=== PATIENT | female | born 1935 | race Caucasian/White ===

== ENCOUNTER → 2017-09-13 | Outpatient (REF) | payer MEDICARE, SELFPAY | LOC: LAB 23:19 | DX: N30.00 Acute cystitis without hematuria (principal) | CPT/HCPCS: 87077; 87086; 87186 ==

== ENCOUNTER → 2018-03-31 16:19 | Outpatient (CLI) | payer MEDICARE, SELFPAY | PROVIDERS: Visit Provider Physician Assistant | DX: N39.0 Urinary tract infection, site not specified (principal) | CPT/HCPCS: 87086 ==

== ENCOUNTER → 2021-04-09 15:26 | Outpatient (CLI) | payer MEDICARE, SELFPAY | PROVIDERS: Visit Provider Physician Assistant | DX: N34.3 Urethral syndrome, unspecified (principal) | CPT/HCPCS: 87077; 87086; 87186 ==

== ENCOUNTER → 2021-08-02 16:02 | Outpatient (CLI) | payer MEDICARE, SELFPAY | PROVIDERS: Visit Provider Nurse Practitioner Family | DX: N39.0 Urinary tract infection, site not specified (principal); L29.9 Pruritus, unspecified | CPT/HCPCS: 87077; 87086; 87186; 87210 ==

== ENCOUNTER → 2021-08-10 15:43 | Outpatient (CLI) | payer MEDICARE, SELFPAY | PROVIDERS: Visit Provider Student in an Organized Health Care Education/Training Program | DX: R30.0 Dysuria (principal) | CPT/HCPCS: 87077; 87086; 87186 ==

== ENCOUNTER → 2022-07-13 15:08 | Outpatient (CLI) | payer MEDICARE, SELFPAY | PROVIDERS: Visit Provider Nurse Practitioner Family | DX: R30.0 Dysuria (principal) | CPT/HCPCS: 87077; 87086; 87186; 87210 ==

== ENCOUNTER 2022-10-05 12:37 | Emergency (ER) | payer MEDICARE, SELFPAY ==
[2022-10-05] VITALS (16 sets, daily range): BP systolic 134–165; BP diastolic 59–70; PULSE 62–79; RESP 18–41; TEMP 37; O2SAT 90–99; BMI 23.8
--- NOTE | 2022-10-05 12:47 | DI.RAD.S_ITS ---
PROCEDURE: XR CHEST 1V INDICATIONS: chest pain TECHNIQUE: One view of the chest was acquired. COMPARISON: None. FINDINGS: Surgical changes and devices: None. Lungs and pleura: Minimal opacity in the left mid lung. No pleural effusions or pneumothorax. Mediastinum: Mediastinal contours appear normal. Heart size is prominent. Bones and chest wall: No suspicious bony lesions. Question left-sided rib fractures. Overlying soft tissues appear unremarkable. IMPRESSION: Question left sided rib fractures. Acuity is uncertain. Adjacent opacity in the left mid lung. Favor atelectasis over contusion. Dictated by: Christopher John M.D. on 10/05/2022 at 13:57 Approved by: Christopher John M.D. on 10/05/2022 at 13:59
[2022-10-05 13:10] LABS: Add Manual Diff / Slide Review NO; Basophils Absolute Auto 0 /uL (0-100); Basophils Percent Auto 0.5 % (0-2); Eosinophils Absolute Auto 100 /uL (0-450); Eosinophils Percent Auto 0.8 % (2-4); Hematocrit 28.4 % (36-46); Hemoglobin 9.9 g/dL (12.0-16.0); Lymphocytes Absolute Auto 900 /uL (1100-4500); Lymphocytes Percent Auto 12.8 % (25-40); Mean Corpuscular HGB Conc 34.8 % (30-36); Mean Corpuscular Hemoglobin 35.5 PG (26-34); Mean Corpuscular Volume 102.1 fL (80-100); Monocytes Absolute Auto 500 /uL (0-900); Monocytes Percent Auto 6.7 % (3-14); Neutrophils Absolute Auto 5800 /uL (1500-7000); Neutrophils Percent Auto 79.2 % (50-75); Platelet Count 308 X10^3/uL (150-400); Red Blood Cell Count 2.78 X10^6/uL (4.0-5.2); Red Cell Distribution Width 15.1 % (11.6-14.8); White Blood Cell Count 7.4 X10^3/uL (4.5-11.0)
[2022-10-05 13:18] LABS: Prothrombin Time 11.6 SECONDS (10.1-12.7)
[2022-10-05 13:20] LABS: PTT Partial Thromboplastin Tim 28 SECONDS (26-36)
[2022-10-05 13:54] LABS: Bacteria Urine Few (2-10); RBC Urine 0-1/HPF (0-5/HPF); Squamous Epithelial Cell Urine 1-5 /HPF (0-5/HPF); Transitional Epi Cells Urine 0-1/HPF (0-5/HPF); WBC Urine 0-1/HPF (0-5/HPF)
[2022-10-05 13:55] LABS: Culture Indicated Urine Cult Not Indicated
[2022-10-05] MEDS: ONDANSETRON 4 MG/2 ML INJ IV ×2 (14:21→18:16)
[2022-10-05] MEDS: MORPHINE 2 MG/ML INJ IV (14:36)
--- NOTE | 2022-10-05 14:47 | DI.CT.S_ITS ---
PROCEDURE: CT ABDOMEN PELVIS W CON INDICATIONS: IV contrast only/abdominal pain TECHNIQUE: After the administration of intravenous contrast, axial sections acquired from the lung bases to the pubic symphysis. Coronal and sagittal reformats were performed. For radiation dose reduction, the following was used: automated exposure control, adjustment of mA and/or kV according to patient size. COMPARISON: None. FINDINGS: Image quality: Study limited by motion artifact Lower thorax: The lung bases are clear. Heart size normal. No hiatal hernia. Old healed left-sided rib fractures Liver: Normal in size and attenuation. No contour deformity present. Biliary system: No calcified cholelithiasis or pericholecystic inflammation. No intra or extrahepatic bile duct dilatation. Pancreas: Unremarkable without mass or inflammation evident. Spleen: Normal in size and density. Adrenals: Normal morphology and density. Reproductive system: Hysterectomy. Urinary system: Normal renal size and attenuation. No renal calculi, hydronephrosis, or solid mass present. Urinary bladder unremarkable. Gastrointestinal system: Large amount of fecal debris throughout the colon. Appendix: No findings to suggest acute appendicitis. Peritoneal spaces: No mesenteric or retroperitoneal adenopathy. No free air. No free fluid. Vasculature: Aortic atherosclerotic vascular calcification noted without evidence of aneurysm. Abdominal wall: Abdominal wall intact without evidence of ventral or inguinal hernias. Abdominal wall suture noted Musculoskeletal: Normal bone mineralization. Degenerative disc disease and arthropathy noted in lower lumbar spine. No acute fractures. Left-sided malunion pelvic fractures IMPRESSION: 1. No acute CT findings in the abdomen and pelvis. 2. Large amount of fecal debris throughout the colon. No evidence of obstruction. 3. Old left-sided pelvic fractures with malunion. Advanced degenerative disc disease and arthropathy in the lower lumbar spine with thoracolumbar levoscoliosis Approved by: Mohan Orozco M.D. on 10/05/2022 at 16:44
--- NOTE | 2022-10-05 14:48 | ED_ITS ---
HPI - Abdominal Pain General Chief Complaint: Abdominal Pain Stated Complaint: UPPER STOMACH AND CHEST PAIN/POST UTI/VAG BLEED Time Seen by Provider: 10/05/22 14:41 Source: patient and family Mode of arrival: Ambulatory History of Present Illness HPI narrative: Patient here with daughter. Complaints abdominal pain epigastric pain radiating to the mid back as well as up to the chest. Has had nausea but no vomiting. Patient recent treat for UTI by walk-in clinic in [place]. Patient has dementia. Denies any pain at this time. Patient has history hysterectomy. Uncertain about gallbladder and appendix. Patient in no distress. Patient has had complaints of abdominal bloating/fullness Related Data Home Medications Medication Instructions Recorded Confirmed fluoxetine 20 mg capsule 20 mg PO QDAY ##0 01/26/17 10/10/22 gabapentin 300 mg capsule 300 mg PO BID ##0 01/26/17 10/10/22 (Neurontin) insulin aspar prot-insulin aspart See Rx Instructions .Route 01/26/17 10/10/22 100 unit/mL (70-30) subcutaneous .COMPLEX ##0 pen (Novolog Mix 70-30FlexPen U-100) metformin 1,000 mg tablet,extended 1,000 mg PO BID ##0 01/26/17 10/09/22 release 24hr spironolactone 25 mg tablet 25 mg QDAY ##0 01/26/17 10/10/22 insulin degludec 100 unit/mL (3 22 unit SUBCUT DAILY 08/02/21 10/10/22 mL) subcutaneous pen (Tresiba FlexTouch U-100 insulin) ketoconazole 2 % topical cream 1 applic topical DAILY PRN Rash 08/02/21 10/10/22 loratadine 10 mg tablet (Allergy 10 mg PO DAILY 08/02/21 10/10/22 Relief (loratadine)) losartan 25 mg tablet 50 mg PO DAILY #0 tabs 08/02/21 10/09/22 rosuvastatin 10 mg tablet 10 mg PO DAILY 08/02/21 10/10/22 triamcinolone acetonide 0.1 % 1 applic topical DAILY PRN Rash 08/02/21 10/10/22 topical cream Allergies Allergy/AdvReac Type Severity Reaction Status Date / Time ALONDRA Inhibitors Allergy Verified 10/09/22 17:27 ciprofloxacin Allergy Verified 10/09/22 17:27 Review of Systems Review of Systems Narrative: GENERAL: negative chills, fatigue, malaise, fever, sweats. HEENT: negative sinus pain, ear pain, sore throat RESPIRATORY: negative dyspnea, cough CARDIOVASCULAR: negative chest pain, palpitations GASTROINTESTINAL: Positive nausea, negative vomiting, positive abdominal pain : negative dysuria, frequency, hematuria MUSCULOSKELETAL: negative muscle or bony pain SKIN: negative rash, skin lesions NEUROLOGIC: negative weakness, numbness ROS Unobtainable: All systems reviewed & are unremarkable except as noted in HPI and below Patient History Medical History Dementia GERD (gastroesophageal reflux disease) History of diabetes mellitus, type II Hyperlipidemia Hypertension Hypothyroidism Microcytic anemia Osteoporosis Surgical History History of hysterectomy Family History Father No problems noted. Mother No problems noted. Social History household members: none Smoking Status: Never smoker Smoking Status: Never smoker tobacco type: cigarettes Substance Use Type: does not use Exam Narrative Exam Narrative: GENERAL: in no distress, not toxic not dyspneic HEAD: Normocephalic. EYES: Pupils equal round ENT: Mucous membranes moist. NECK: Trachea midline. CARDIOVASCULAR: Regular rate and rhythm without murmurs RESPIRATORY: Clear to auscultation. Breath sounds equal bilaterally. No wheezes, rales, or rhonchi. GASTROINTESTINAL: Abdomen soft, however is distended. Bowel sounds are present. Tympanic on percussion. No peritoneal signs. No pain out of proportion to exam. No rebound tenderness. EXTREMITIES: No gross deformities. BACK: No flank tenderness. NEURO: Patient is awake alert to self and date of . Has history of dementia. Does have clear speech. No facial droop. Following instructions very well. 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 SKIN: Warm and dry PSYCH: Not anxious, is cooperative Initial Vital Signs Initial Vital Signs: Vital Signs Temperature 98.6 F 10/05/22 12:43 Pulse Rate 68 10/05/22 12:43 Respiratory Rate 18 10/05/22 12:43 Blood Pressure 150/67 H 10/05/22 12:43 Pulse Oximetry 99 10/05/22 12:43 Oxygen Delivery Method Room Air 10/05/22 12:43 Course Orders Ordered: Discontinued Medications Aspirin (Aspirin 81 Mg Chew Tab) 324 mg PO NOW ONE Stop: 10/05/22 12:48 Last Admin: 10/05/22 16:50 Dose: Not Given Documented By: LILIANA Sodium Chloride (Normal Saline 0.9%) 500 mls @ 1,000 mls/hr IV BOLUS ONE Stop: 10/05/22 15:16 Last Infusion: 10/05/22 16:49 Dose: 0 mls/hr Documented By: Admin: 10/05/22 15:28 Dose: 1,000 mls/hr Documented By: LILIANA Morphine Sulfate (Morphine 2 Mg/Ml Inj) 2 mg IV NOW ONE Stop: 10/05/22 14:30 Last Admin: 10/05/22 14:36 Dose: 2 mg Documented By: LILIANA Ondansetron HCl (Ondansetron 4 Mg/2 Ml Inj) 4 mg IV NOW PRN PRN Reason: Nausea And Vomiting Last Admin: 10/05/22 14:21 Dose: 4 mg Documented By: LILIANA Ondansetron HCl (Ondansetron 4 Mg Odt) 4 mg SL NOW PRN PRN Reason: Nausea And Vomiting Ondansetron HCl (Ondansetron 4 Mg/2 Ml Inj) 4 mg IV NOW ONE Stop: 10/05/22 18:04 Last Admin: 10/05/22 18:16 Dose: 4 mg Documented By: LILIANA Vital Signs Vital signs: Vital Signs - 8 hr 10/05/22 12:43 10/05/22 13:43 10/05/22 14:00 Temperature 98.6 F Pulse Rate 68 66 63 Respiratory Rate 18 23 22 Blood Pressure 150/67 H Pulse Oximetry 99 97 97 Oxygen Delivery Method Room Air 10/05/22 14:28 10/05/22 14:28 10/05/22 14:30 Temperature Pulse Rate 65 Respiratory Rate 29 H Blood Pressure 141/65 H 143/63 H Pulse Oximetry 97 Oxygen Delivery Method 10/05/22 14:30 10/05/22 15:00 10/05/22 15:00 Temperature Pulse Rate 63 64 Respiratory Rate 25 H 25 H Blood Pressure 160/70 H Pulse Oximetry 96 97 Oxygen Delivery Method 10/05/22 15:30 10/05/22 15:31 10/05/22 15:31 Temperature Pulse Rate 62 62 Respiratory Rate 27 H 28 H Blood Pressure 165/70 H Pulse Oximetry 98 97 Oxygen Delivery Method 10/05/22 16:07 10/05/22 16:09 10/05/22 16:13 Temperature Pulse Rate 78 76 71 Respiratory Rate 24 23 Blood Pressure Pulse Oximetry 90 L 94 96 Oxygen Delivery Method 10/05/22 16:20 10/05/22 16:20 10/05/22 16:30 Temperature Pulse Rate 68 67 Respiratory Rate 27 H 28 H Blood Pressure 150/67 H Pulse Oximetry 97 97 Oxygen Delivery Method 10/05/22 16:47 10/05/22 16:47 10/05/22 17:00 Temperature Pulse Rate 79 68 Respiratory Rate 39 H 41 H Blood Pressure 134/59 L Pulse Oximetry 95 Oxygen Delivery Method MDM - Abdominal Pain Lab Data 10/05/22 13:00 10/05/22 15:00 Labs: Lab Results 10/05/22 10/05/22 10/05/22 Range/Units 13:00 13:00 13:10 WBC 7.4 (4.5-11.0) X10^3/uL RBC 2.78 L (4.0-5.2) X10^6/uL Hgb 9.9 L (12.0-16.0) g/dL Hct 28.4 L (36-46) % MCV 102.1 H (80-100) fL MCH 35.5 H (26-34) PG MCHC 34.8 (30-36) % RDW 15.1 H (11.6-14.8) % Plt Count 308 (150-400) X10^3/uL Neut % (Auto) 79.2 H (50-75) % Lymph % (Auto) 12.8 L (25-40) % Drew % (Auto) 6.7 (3-14) % Eos % (Auto) 0.8 L (2-4) % Baso % (Auto) 0.5 (0-2) % Neut # (Auto) 5800 (5000-0843) /uL Lymph # (Auto) 900 L (7727-6174) /uL Drew # (Auto) 500 (0-900) /uL Eos # (Auto) 100 (0-450) /uL Baso # (Auto) 0 (0-100) /uL PT 11.6 (10.1-12.7) SECONDS INR 1.0 (0.9-1.3) APTT 28 (26-36) SECONDS Sodium (137-145) mmol/L Potassium (3.4-5.1) mmol/L Chloride (98-107) mmol/L Carbon Dioxide (22-32) mmol/L BUN (7-17) mg/dL Creatinine (0.52-1.04) mg/dL Estimated GFR (>60) mL/min BUN/Creatinine Ratio (6-22) Glucose (80-110) mg/dL Calcium (8.4-10.2) mg/dL Magnesium (1.6-2.3) mg/dL Total Bilirubin (0.2-1.3) mg/dL AST (14-36) IU/L ALT (<35) IU/L Alkaline Phosphatase (38-126) U/L Total Creatine Kinase (30-135) U/L CK-MB (CK-2) CK-MB (CK-2) Rel Index Troponin I (0.01-0.034) ng/mL Total Protein (6.3-8.2) g/dL Albumin (3.5-5.0) g/dL Globulin (1.7-4.1) g/dL Albumin/Globulin Ratio (1.0-2.8) Lipase (23-300) U/L Urine RBC 0-1/hpf (0-5/HPF) Urine WBC 0-1/hpf (0-5/HPF) Ur Squamous Epith Cells 1-5 /hpf (0-5/HPF) Ur Transition Epith Cell 0-1/hpf (0-5/HPF) Urine Bacteria Few (2-10) H (None) Ur Culture Indicated? Cult not indicated 10/05/22 Range/Units 15:00 WBC (4.5-11.0) X10^3/uL RBC (4.0-5.2) X10^6/uL Hgb (12.0-16.0) g/dL Hct (36-46) % MCV (80-100) fL MCH (26-34) PG MCHC (30-36) % RDW (11.6-14.8) % Plt Count (150-400) X10^3/uL Neut % (Auto) (50-75) % Lymph % (Auto) (25-40) % Drew % (Auto) (3-14) % Eos % (Auto) (2-4) % Baso % (Auto) (0-2) % Neut # (Auto) (0861-1140) /uL Lymph # (Auto) (6571-5786) /uL Drew # (Auto) (0-900) /uL Eos # (Auto) (0-450) /uL Baso # (Auto) (0-100) /uL PT (10.1-12.7) SECONDS INR (0.9-1.3) APTT (26-36) SECONDS Sodium 122 L (137-145) mmol/L Potassium 5.7 H (3.4-5.1) mmol/L Chloride 93 L (98-107) mmol/L Carbon Dioxide 18 L (22-32) mmol/L BUN 20 H (7-17) mg/dL Creatinine 1.04 (0.52-1.04) mg/dL Estimated GFR 52 L (>60) mL/min BUN/Creatinine Ratio 19.2 (6-22) Glucose 153 H (80-110) mg/dL Calcium 9.4 (8.4-10.2) mg/dL Magnesium 1.5 L (1.6-2.3) mg/dL Total Bilirubin 0.6 (0.2-1.3) mg/dL AST 31 (14-36) IU/L ALT 16 (<35) IU/L Alkaline Phosphatase 81 (38-126) U/L Total Creatine Kinase 75 (30-135) U/L CK-MB (CK-2) TNP CK-MB (CK-2) Rel Index TNP Troponin I < 0.012 (0.01-0.034) ng/mL Total Protein 8.2 (6.3-8.2) g/dL Albumin 4.0 (3.5-5.0) g/dL Globulin 4.2 H (1.7-4.1) g/dL Albumin/Globulin Ratio 1.0 (1.0-2.8) Lipase 91 (23-300) U/L Urine RBC (0-5/HPF) Urine WBC (0-5/HPF) Ur Squamous Epith Cells (0-5/HPF) Ur Transition Epith Cell (0-5/HPF) Urine Bacteria (None) Ur Culture Indicated? Imaging Data Chest x-ray: Radiologist's Impression: IMPRESSION:? Question left sided rib fractures.? Acuity is uncertain. ? Adjacent opacity in the left mid lung.? Favor atelectasis over contusion.? ? ? Dictated by: Christophre John M.D. on 10/05/2022 at 13:57 ? ? Approved by: Christopher John M.D. on 10/05/2022 at 13:59 ? CT scan - abdomen/pelvis: Radiologist's Impression: IMPRESSION: ? 1. No acute CT findings in the abdomen and pelvis. ? 2. Large amount of fecal debris throughout the colon.? No evidence of obstruction. ? 3. Old left-sided pelvic fractures with malunion.? Advanced degenerative disc disease and arthropathy in the lower lumbar spine with thoracolumbar levoscoliosis [facility] Narrative Medical decision making narrative: Patient here with daughter. Complaints abdominal pain epigastric pain radiating to the mid back as well as up to the chest. Has had nausea but no vomiting. Patient recent treat for UTI by walk-in clinic in [place]. Patient has dementia. Denies any pain at this time. Patient has history hysterectomy. Uncertain about gallbladder and appendix. Patient in no distress. Patient has had complaints of abdominal bloating/fullness After history and exam CBC CMP troponin CT abdomen pelvis IV fluids EKG [facility] CC: Abdominal pain, nausea and vomiting Complicating co-morbidities: History UTI, history hysterectomy Data collected from: Daughter Medical records reviewed: No recent visits for this complaint Differential considered: Includes but not limited to bowel obstruction UT pancreatitis cholecystitis gastritis diverticulosis diverticulitis Exam documented above, pertinent findings include: Distended abdomen Lab Test results independently reviewed as above. Pertinent findings: WBCs 7.4 hemoglobin 9.9 hematocrit 28 platelets 308 sodium 122 potassium 5.7/cut off is 5.1, bicarb 18 BUN 20 creatinine 1.04 GFR 52 glucose 153, troponin less than 0.012 AST 31 ALT 16, urinalysis few bacteria Independently reviewed EKG as above normal sinus rhythm rate [address] elevation or depression. Left bundle-branch block present Imaging studies independently reviewed: Chest x-ray questionable left-sided rib fractures. Acuity is uncertain adjacent opacity in the left mid lung. CT abdomen and pelvis no acute CT findings, large amount of fecal debris throughout the colon. No evidence of obstruction. Consultations: None indicated at this time Treatments: Zofran normal saline Re-evaluations: 6:00 p.m.. Reviewed results with daughter. At this time likely constipation causing abdominal discomfort. She agrees for home GoLYTELY and follow up with primary care this week as well recheck abdominal discomfort and potassium levels. I did give IV fluids here and likely will help in low ering the potassium levels. Daughter do not want to wait for repeat check levels as patient is starting to get agitated. May be sundowning with dementia. Return precautions reviewed with her. She desires discharge home. Discussion: Appropriate for discharge home. Potassium levels can be rechecked with primary care. They are slightly elevated but I did give IV fluids here which will likely lower it. Return precautions reviewed with daughter. She desires discharge home. Prescription for GoLYTELY and Zofran sent to pharmacy to tow picker tonight. Daughter agrees with treatment plan. Not toxic at discharge. Diagnosis: Abdominal pain Discharge Plan Departure Patient Disposition: Home Clinical Impression: Abdominal pain Instructions: DI for Abdominal Pain-Adult, DI for Constipation Activity Restrictions/Additional Instructions: See family doctor this week for re-evaluation and to have your potassium levels Rechecked. GoLYTELY and Zofran prescriptions has been sent to your [facility] pharmacy to tow picker tonight. Please use this as directed. See family doctor this week for re-evaluation as well for your abdominal pain and constipation. Keep well hydrated. Prescriptions: No Action loratadine [Allergy Relief (loratadine)] 10 mg tablet 10 mg PO DAILY Tresiba FlexTouch U-100 100 unit/mL (3 mL) insulin pen 22 unit SUBCUT DAILY rosuvastatin 10 mg tablet 10 mg PO DAILY ketoconazole 2 % cream 1 applic topical DAILY PRN (Reason: Rash) triamcinolone acetonide 0.1 % cream 1 applic topical DAILY PRN (Reason: Rash) fluoxetine 20 MG capsule 20 mg PO QDAY Qty: 0 gabapentin [Neurontin] 300 MG capsule 300 mg PO BID Qty: 0 spironolactone 25 MG tablet 25 mg QDAY Qty: 0 insulin asp prt-insulin aspart [Novolog Mix 70-30FlexPen U-100] 100 UNIT/1 ML insulin pen See Rx Instructions .ROUTE .COMPLEX Qty: 0 Rx Instructions: Inject subcutaneously per sliding scale 2 times daily 150-199=2 units, 200- 250=3 units, 250-299=4 units, 300 or higher= 5 units metformin 1,000 MG tablet extended release 24hr 1,000 mg PO BID Qty: 0 losartan 25 mg tablet 50 mg PO DAILY Qty: 0 Referrals: Miscellaneous,Doctor, MD [Primary Care Provider] - Stand Alone Forms: Patient Portal/API
[2022-10-05 15:16] LABS: Alanine Aminotransferase 16 IU/L (<35); Alkaline Phosphatase 81 U/L (38-126); Aspartate Aminotransferase 31 IU/L (14-36); BUN Creatinine Ratio 19.2 (6-22); Bilirubin Total 0.6 mg/dL (0.2-1.3); Blood Urea Nitrogen 20 mg/dL (7-17); Calcium 9.4 mg/dL (8.4-10.2); Carbon Dioxide 18 mmol/L (22-32); Chloride 93 mmol/L (98-107); Creatine Kinase 75 U/L (30-135); Estimated Glomerular Filt Rate 52 mL/min (>60); Globulin 4.2 g/dL (1.7-4.1); Glucose 153 mg/dL (80-110); Lipase 91 U/L (23-300); Sodium 122 mmol/L (137-145); Total Protein 8.2 g/dL (6.3-8.2)
[2022-10-05 15:25] LABS: HEMOLYSIS 81 (0-50)
[2022-10-05 15:27] LABS: Potassium 5.7 mmol/L (3.4-5.1)
[2022-10-05 15:28] LABS: Troponin I < 0.012 ng/mL (0.01-0.034)
[2022-10-05] MEDS: SODIUM CHLORIDE 0.9% 500 ML 1000 ML IV (15:28)
[2022-10-05 15:34] LABS: Magnesium 1.5 mg/dL (1.6-2.3)
--- NOTE | 2022-10-05 17:52 | PC.NURSE ---
Pt trying to get out of bed multiple times, pt is re-directable. Re-orienting pt frequently. Pt then pulled out her IV, pt re-oriented again. Dr. Pierson made aware of pt's increasing confusion. Pt provided with a magazine for distraction.
== END 2022-10-05 18:26 | disposition home or self-care (01) ==
PROVIDERS: Emergency Provider Emergency Medicine
DX: R10.13 Epigastric pain (principal); R11.0 Nausea; K59.00 Constipation, unspecified
CPT/HCPCS: 36415; 71045; 74177; 80053; 81015; 82550; 83690; 83735; 84484; 85025; 85610; 85730; 93005; 96361; 96374; 96375; 96376; 99284; J2270; J2405; Q9967

== ENCOUNTER 2022-10-09 17:15 | Inpatient (IN) | payer MEDICARE, MEDICAID, SELFPAY ==
[2022-10-09] VITALS (16 sets, daily range): BP systolic 130–191; BP diastolic 62–144; PULSE 63–80; RESP 18–33; TEMP 36.8; O2SAT 92–99; BMI 28.0
[2022-10-09 17:41] LABS: Add Manual Diff / Slide Review NO; Basophils Absolute Auto 0 /uL (0-100); Basophils Percent Auto 0.3 % (0-2); Eosinophils Absolute Auto 0 /uL (0-450); Eosinophils Percent Auto 0.6 % (2-4); Hematocrit 26.3 % (36-46); Hemoglobin 9.2 g/dL (12.0-16.0); Lymphocytes Absolute Auto 1100 /uL (1100-4500); Lymphocytes Percent Auto 14.9 % (25-40); Mean Corpuscular HGB Conc 35.1 % (30-36); Mean Corpuscular Hemoglobin 35.9 PG (26-34); Mean Corpuscular Volume 102.2 fL (80-100); Monocytes Absolute Auto 600 /uL (0-900); Monocytes Percent Auto 8.1 % (3-14); Neutrophils Absolute Auto 5800 /uL (1500-7000); Neutrophils Percent Auto 76.1 % (50-75); Platelet Count 343 X10^3/uL (150-400); Red Blood Cell Count 2.58 X10^6/uL (4.0-5.2); Red Cell Distribution Width 14.8 % (11.6-14.8); White Blood Cell Count 7.6 X10^3/uL (4.5-11.0)
--- NOTE | 2022-10-09 17:58 | ED.GIBLEED ---
HPI - GI Bleed <Lola Rosa PA-C - Last Filed: 10/09/22 20:41> General Chief complaint: GI Bleed Stated complaint: Abd pain LUQ Time Seen by Provider: 10/09/22 17:33 Source: EMS Mode of arrival: EMS History of Present Illness HPI Narrative: Patient is an 86-year-old female with dementia, osteoporosis, GERD, depression, type 2 diabetes, hypothyroidism, hyperlipidemia, hypertension presenting for evaluation of right upper quadrant pain starting this morning. Her daughter states that she is been taking iron tablets which they recently discontinued within the last day or two. Nursing staff reported that her stools were dark and tarry in combination with her right upper quadrant pain, they brought her to the ED. Her daughter reports that her BMs have been smooth and not hard. Contact with nursing staff at patient's place of residence says that there have been 5 or 6 small dark stools this morning which were loose. Patient did start taking GoLYTELY on Monday. Patient describes her abdominal pain as present in the right upper quadrant describing it as feeling full on the sides with pain radiating to her right back. She denies shortness of breath, chest pain, body aches or chills or fever. She denies any upper respiratory symptoms such as sore throat, nasal congestion or cough. She denies nausea, vomiting or diarrhea, nor numbness or weakness.. She denies any changes to her urination including pain with urination or frequency. Her daughter's uncertain about history of gastric surgeries and patient can not remember. She does believe her mom had a hysterectomy but is uncertain about gallbladder and appendix status. She was last seen in the emergency department last Monday 4 days ago for epigastric pain radiating to her mid back. She had nausea at that time and had recently been treated for UTI by walk-in clinic in [place]. She received a CT of her abdomen and pelvis with no acute CT findings soap for large amount of fecal debris throughout colon without evidence of obstruction. She also had EKG, troponins which were negative and UA done four days ago. Chest x-ray 4 days ago showed some questionable left-sided rib fractures. Related Data Home Medications Medication Instructions Recorded Confirmed Lactobacillus acidophilus 1 tab PO QDAY ##0 01/26/17 07/13/22 acetaminophen 500 mg tablet 500 mg PO ##0 01/26/17 07/13/22 alendronate 35 mg tablet 35 mg PO ##0 01/26/17 07/13/22 ascorbic acid (vitamin C) 500 mg 500 mg PO QDAY ##0 01/26/17 07/13/22 tablet aspirin 81 mg tablet,delayed 81 mg PO QDAY ##0 01/26/17 07/13/22 release calcium carbonate 500 mg calcium 1 tab PO ##0 01/26/17 07/13/22 (1,250 mg) tablet celecoxib 200 mg capsule (Celebrex) 200 mg PO AMCC ##0 01/26/17 07/13/22 cholecalciferol (vitamin D3) 125 5,000 unit PO QDAY ##0 01/26/17 07/13/22 mcg (5,000 unit) capsule esomeprazole magnesium 40 mg 40 mg PO QDAY ##0 01/26/17 07/13/22 capsule,delayed release (Nexium) ferrous sulfate 325 mg (65 mg 325 mg PO QDAY ##0 01/26/17 07/13/22 iron) tablet (Iron (ferrous sulfate)) fluoxetine 20 mg capsule 20 mg PO QDAY ##0 01/26/17 07/13/22 gabapentin 300 mg capsule 300 mg PO BID ##0 01/26/17 10/10/22 (Neurontin) gemfibrozil 600 mg tablet 600 mg PO BIDAC ##0 01/26/17 07/13/22 insulin aspar prot-insulin aspart 0 units SQ TIDCC ##0 01/26/17 07/13/22 100 unit/mL (70-30) subcutaneous pen (Novolog Mix 70-30FlexPen U-100) insulin glargine 100 unit/mL (3 0 unit SQ QDAY ##0 01/26/17 07/13/22 mL) subcutaneous pen (Lantus Solostar U-100 Insulin) levothyroxine 50 mcg tablet 50 mcg PO QAM ##0 01/26/17 10/09/22 metformin 1,000 mg tablet,extended 1,000 mg PO BID ##0 01/26/17 10/09/22 release 24hr spironolactone 25 mg tablet 25 mg QDAY ##0 01/26/17 07/13/22 zolpidem 10 mg tablet 10 mg PO HSP PRN ##0 01/26/17 07/13/22 insulin aspart U-100 100 unit/mL See Rx Instructions SUBCUT BID 08/02/21 07/13/22 (3 mL) subcutaneous pen (Novolog FlexPen U-100 Insulin aspart) insulin degludec 100 unit/mL (3 15 unit SUBCUT DAILY 08/02/21 07/13/22 mL) subcutaneous pen (Tresiba FlexTouch U-100 insulin) ketoconazole 2 % topical cream 1 applic topical DAILY 08/02/21 07/13/22 loratadine 10 mg tablet (Allergy 10 mg PO DAILY 08/02/21 07/13/22 Relief (loratadine)) losartan 25 mg tablet 50 mg PO DAILY #0 tabs 08/02/21 10/09/22 rosuvastatin 10 mg tablet 10 mg PO DAILY 08/02/21 07/13/22 triamcinolone acetonide 0.1 % 1 applic topical DAILY 08/02/21 07/13/22 topical cream Previous Rx's Medication Instructions Recorded cefuroxime axetil 250 mg tablet 250 mg PO BID #20 tabs 09/13/17 phenazopyridine 200 mg tablet 200 mg PO TID #6 tabs 09/14/17 fluconazole 150 mg tablet 150 mg PO ONCE #1 tab 03/31/18 phenazopyridine 200 mg tablet 200 mg PO TID Dysuria 6 doses #6 07/13/22 (Pyridium) tabs ondansetron 4 mg disintegrating 4 mg PO Q8H PRN nausea and 10/05/22 tablet vomiting #10 tabs peg 3350-electrolytes 236 240 ml PO Q10M #2,000 mL 10/05/22 gram-22.74 gram-6.74 gram-5.86 gram solution (GaviLyte-G) Allergies Allergy/AdvReac Type Severity Reaction Status Date / Time ALONDRA Inhibitors Allergy Verified 10/09/22 17:27 ciprofloxacin Allergy Verified 10/09/22 17:27 Review of Systems <Lola Rosa PA-C - Last Filed: 10/09/22 20:41> Review of Systems Narrative: per HPI Patient History <Lola Rosa PA-C - Last Filed: 10/09/22 20:41> Medical History Dementia GERD (gastroesophageal reflux disease) History of diabetes mellitus, type II Hyperlipidemia Hypertension Hypothyroidism Microcytic anemia Osteoporosis Surgical History History of hysterectomy Family History (Updated 10/09/22 @ 22:49 by TESHA Garner) Father No problems noted. Mother No problems noted. Social History Smoking Status: Never smoker Smoking Status: Never smoker tobacco type: cigarettes Substance Use Type: does not use Exam <Lola Rosa PA-C - Last Filed: 10/09/22 20:41> Initial Vital Signs Initial Vital Signs: Vital Signs Pulse Rate 69 10/09/22 17:18 Pulse Oximetry 97 10/09/22 17:18 GENERAL: 86 year old patient appears stated age. Well-developed patient, in no acute distress complaining of pain in her right upper quadrant. HEAD: Atraumatic. Normocephalic. EYES: Pupils equal round NECK: Trachea midline. CARDIOVASCULAR: Regular rate and rhythm without murmurs, gallops, or rubs. RESPIRATORY: Clear to auscultation. Breath sounds equal bilaterally. No wheezes, rales, or rhonchi. GASTROINTESTINAL: Abdomen soft, tender in right upper quadrant, abdomen distended and tympanic to percussion throughout, rectal exam: No gross blood noted on exam, Hemoccult negative EXTREMITIES: No edema or joint tenderness. BACK: Tender over right back, improved with sitting up NEURO: AOx3. SKIN: No rash or erythema of visible areas <Megan Stephen DO - Last Filed: 10/10/22 01:02> Initial Vital Signs Initial Vital Signs: Vital Signs Pulse Rate 69 10/09/22 17:18 Pulse Oximetry 97 10/09/22 17:18 Course <Lola Rosa PA-C - Last Filed: 10/09/22 20:41> Orders Ordered: ED Orders 10/09/22 17:25 Type and Screen Stat 10/09/22 17:28 EKG-12 Lead Stat 10/09/22 17:30 Complete Blood Count AUTO DIFF Stat 10/09/22 18:00 Comprehensive Metabolic Panel Stat Lipase Stat PT [Prothrombin Time INR] Stat PTT Partial Thromboplastin [place] Stat TSH [Thyroid Stimulating Hormone] Stat 10/09/22 18:40 US abdomen limited Stat 10/09/22 18:54 XR abdomen min 2V Stat 10/09/22 19:37 CT abdomen pelvis w con Stat 10/09/22 22:59 Sodium Urine Random Stat Acetaminophen (Acetaminophen 325 Mg Tablet) 650 mg PO Q6H PRN PRN Reason: Fever/Mild Pain (1-3) Last Admin: 10/09/22 22:49 Dose: 650 mg Documented By: DL Al Hydrox/Mg Hydrox/Simethicone (Mag Hydrox/Alum/Simeth 30 Ml Udc) 30 ml PO Q6HR PRN PRN Reason: Dyspepsia Calcium Carbonate (Calcium Carbonate 500 Mg Tab) 1,000 mg PO Q4HR PRN PRN Reason: Dyspepsia Dextrose (Dextrose 50 % In Water 25 Gm/50 Ml Syringe) 25 gm IV PRN PRN PRN Reason: Hypoglycemia Gabapentin (Gabapentin 300 Mg Capsule) 300 mg PO BID AIME Hydromorphone HCl (Hydromorphone 0.5 Mg Inj) 0.5 mg IV Q4H PRN PRN Reason: Pain, Moderate-severe ()6-10 Sodium Chloride (Normal Saline 0.9%) 1,000 mls @ 80 mls/hr IV CONT AIME Last Admin: 10/09/22 22:00 Dose: 80 mls/hr Documented By: VANESSA Insulin Human Lispro (Insulin Lispro 100 Unit/Ml 3ml Vial) 0 unit SUBCUT ACHS AIME; Protocol Levothyroxine Sodium (Levothyroxine 50 Mcg Tablet) 50 mcg PO QAM AIME Loperamide HCl (Loperamide 2 Mg Capsule) 4 mg PO PRN PRN PRN Reason: Diarrhea Loperamide HCl (Loperamide 2 Mg Capsule) 2 mg PO PRN PRN PRN Reason: Diarrhea Losartan Potassium (Losartan 25 Mg Tablet) 50 mg PO DAILY AIME Naloxone HCl (Naloxone 0.4 Mg/Ml Vial) 0.2 mg IV Q2MIN PRN PRN Reason: Opiate Reversal Ondansetron HCl (Ondansetron 4 Mg/2 Ml Inj) 4 mg IV Q8HR PRN PRN Reason: Nausea And Vomiting Oxycodone HCl (Oxycodone Ir 5 Mg Tablet) 5 mg PO Q3H PRN PRN Reason: Pain, Moderate (4-)10 Last Admin: 10/09/22 22:50 Dose: 5 mg Documented By: VANESSA Pantoprazole Sodium (Pantoprazole 40 Mg Vial) 20 mg IV DAILY [facility] Quetiapine Fumarate (Quetiapine 25 Mg Tablet) 25 mg PO BEDTIME AIME Last Admin: 10/09/22 23:47 Dose: 25 mg Documented By: VANESSA Simethicone (Simethicone 80 Mg Tablet) 80 mg PO QID PRN PRN Reason: Abdominal Distention Discontinued Medications Ketorolac Tromethamine (Ketorolac 30 Mg/Ml Vial) 15 mg IV NOW ONE Stop: 10/09/22 19:33 Last Admin: 10/09/22 20:16 Dose: 15 mg Documented By: LUCIUS Morphine Sulfate (Morphine 2 Mg/Ml Inj) 2 mg IV NOW ONE Stop: 10/09/22 18:21 Last Admin: 10/09/22 18:31 Dose: 2 mg Documented By: LUCIUS Ondansetron HCl (Ondansetron 4 Mg Odt) 4 mg PO NOW PRN PRN Reason: Nausea And Vomiting Ondansetron HCl (Ondansetron 4 Mg/2 Ml Inj) 4 mg IV NOW PRN PRN Reason: Nausea And Vomiting Pantoprazole Sodium (Pantoprazole 40 Mg Vial) 40 mg IV NOW ONE Stop: 10/09/22 21:03 Last Admin: 10/09/22 22:00 Dose: 40 mg Documented By: VANESSA Vital Signs Vital signs: Vital Signs - 8 hr 10/09/22 17:20 10/09/22 17:18 10/09/22 17:30 Temperature 98.3 F Pulse Rate 68 69 66 Respiratory Rate 20 25 H Blood Pressure 130/62 Pulse Oximetry 98 97 98 Oxygen Delivery Method Room Air 10/09/22 17:39 10/09/22 17:39 10/09/22 18:00 Temperature Pulse Rate 63 Respiratory Rate 30 H Blood Pressure 169/72 H 169/74 H Pulse Oximetry 97 Oxygen Delivery Method Room Air 10/09/22 18:00 10/09/22 18:30 10/09/22 18:31 Temperature Pulse Rate 64 64 Respiratory Rate 33 H 22 Blood Pressure 137/85 Pulse Oximetry 99 98 Oxygen Delivery Method 10/09/22 18:31 10/09/22 18:59 10/09/22 19:01 Temperature Pulse Rate 65 80 Respiratory Rate 32 H Blood Pressure 181/71 H Pulse Oximetry 98 Oxygen Delivery Method 10/09/22 19:02 10/09/22 20:00 10/09/22 20:24 Temperature Pulse Rate 67 68 Respiratory Rate 19 26 H Blood Pressure 191/144 H Pulse Oximetry 97 Oxygen Delivery Method 10/09/22 20:24 10/09/22 20:26 10/09/22 20:26 Temperature Pulse Rate 66 65 Respiratory Rate 31 H 25 H Blood Pressure 167/73 H Pulse Oximetry 92 96 Oxygen Delivery Method 10/09/22 20:30 10/09/22 20:30 Temperature Pulse Rate 66 Respiratory Rate 25 H Blood Pressure 172/71 H Pulse Oximetry 95 Oxygen Delivery Method Room Air <Megan Stephen DO - Last Filed: 10/10/22 01:02> Orders Ordered: ED Orders 10/09/22 17:25 Type and Screen Stat 10/09/22 17:28 EKG-12 Lead Stat 10/09/22 17:30 Complete Blood Count AUTO DIFF Stat 10/09/22 18:00 Comprehensive Metabolic Panel Stat Lipase Stat PT [Prothrombin Time INR] Stat PTT Partial Thromboplastin [place] Stat TSH [Thyroid Stimulating Hormone] Stat 10/09/22 18:40 US abdomen limited Stat 10/09/22 18:54 XR abdomen min 2V Stat 10/09/22 19:37 CT abdomen pelvis w con Stat 10/09/22 22:59 Sodium Urine Random Stat Acetaminophen (Acetaminophen 325 Mg Tablet) 650 mg PO Q6H PRN PRN Reason: Fever/Mild Pain (1-3) Last Admin: 10/09/22 22:49 Dose: 650 mg Documented By: DL Al Hydrox/Mg Hydrox/Simethicone (Mag Hydrox/Alum/Simeth 30 Ml Udc) 30 ml PO Q6HR PRN PRN Reason: Dyspepsia Calcium Carbonate (Calcium Carbonate 500 Mg Tab) 1,000 mg PO Q4HR PRN PRN Reason: Dyspepsia Dextrose (Dextrose 50 % In Water 25 Gm/50 Ml Syringe) 25 gm IV PRN PRN PRN Reason: Hypoglycemia Gabapentin (Gabapentin 300 Mg Capsule) 300 mg PO BID AIME Hydromorphone HCl (Hydromorphone 0.5 Mg Inj) 0.5 mg IV Q4H PRN PRN Reason: Pain, Moderate-severe ()6-10 Sodium Chloride (Normal Saline 0.9%) 1,000 mls @ 80 mls/hr IV CONT [facility] Last Admin: 10/09/22 22:00 Dose: 80 mls/hr Documented By: DL Insulin Human Lispro (Insulin Lispro 100 Unit/Ml 3ml Vial) 0 unit SUBCUT ACHS AIME; Protocol Levothyroxine Sodium (Levothyroxine 50 Mcg Tablet) 50 mcg PO QAM AIME Loperamide HCl (Loperamide 2 Mg Capsule) 4 mg PO PRN PRN PRN Reason: Diarrhea Loperamide HCl (Loperamide 2 Mg Capsule) 2 mg PO PRN PRN PRN Reason: Diarrhea Losartan Potassium (Losartan 25 Mg Tablet) 50 mg PO DAILY [facility] Naloxone HCl (Naloxone 0.4 Mg/Ml Vial) 0.2 mg IV Q2MIN PRN PRN Reason: Opiate Reversal Ondansetron HCl (Ondansetron 4 Mg/2 Ml Inj) 4 mg IV Q8HR PRN PRN Reason: Nausea And Vomiting Oxycodone HCl (Oxycodone Ir 5 Mg Tablet) 5 mg PO Q3H PRN PRN Reason: Pain, Moderate (4-)10 Last Admin: 10/09/22 22:50 Dose: 5 mg Documented By: DL Pantoprazole Sodium (Pantoprazole 40 Mg Vial) 20 mg IV DAILY [facility] Quetiapine Fumarate (Quetiapine 25 Mg Tablet) 25 mg PO BEDTIME [facility] Last Admin: 10/09/22 23:47 Dose: 25 mg Documented By: DL Simethicone (Simethicone 80 Mg Tablet) 80 mg PO QID PRN PRN Reason: Abdominal Distention Discontinued Medications Ketorolac Tromethamine (Ketorolac 30 Mg/Ml Vial) 15 mg IV NOW ONE Stop: 10/09/22 19:33 Last Admin: 10/09/22 20:16 Dose: 15 mg Documented By: SB Morphine Sulfate (Morphine 2 Mg/Ml Inj) 2 mg IV NOW ONE Stop: 10/09/22 18:21 Last Admin: 10/09/22 18:31 Dose: 2 mg Documented By: SB Ondansetron HCl (Ondansetron 4 Mg Odt) 4 mg PO NOW PRN PRN Reason: Nausea And Vomiting Ondansetron HCl (Ondansetron 4 Mg/2 Ml Inj) 4 mg IV NOW PRN PRN Reason: Nausea And Vomiting Pantoprazole Sodium (Pantoprazole 40 Mg Vial) 40 mg IV NOW ONE Stop: 10/09/22 21:03 Last Admin: 10/09/22 22:00 Dose: 40 mg Documented By: DL Vital Signs Vital signs: Vital Signs - 8 hr 10/09/22 17:20 10/09/22 17:18 10/09/22 17:30 Temperature 98.3 F Pulse Rate 68 69 66 Respiratory Rate 20 25 H Blood Pressure 130/62 Pulse Oximetry 98 97 98 Oxygen Delivery Method Room Air 10/09/22 17:39 10/09/22 17:39 10/09/22 18:00 Temperature Pulse Rate 63 Respiratory Rate 30 H Blood Pressure 169/72 H 169/74 H Pulse Oximetry 97 Oxygen Delivery Method Room Air 10/09/22 18:00 10/09/22 18:30 10/09/22 18:31 Temperature Pulse Rate 64 64 Respiratory Rate 33 H 22 Blood Pressure 137/85 Pulse Oximetry 99 98 Oxygen Delivery Method 10/09/22 18:31 10/09/22 18:59 10/09/22 19:01 Temperature Pulse Rate 65 80 Respiratory Rate 32 H Blood Pressure 181/71 H Pulse Oximetry 98 Oxygen Delivery Method 10/09/22 19:02 10/09/22 20:00 10/09/22 20:24 Temperature Pulse Rate 67 68 Respiratory Rate 19 26 H Blood Pressure 191/144 H Pulse Oximetry 97 Oxygen Delivery Method 10/09/22 20:24 10/09/22 20:26 10/09/22 20:26 Temperature Pulse Rate 66 65 Respiratory Rate 31 H 25 H Blood Pressure 167/73 H Pulse Oximetry 92 96 Oxygen Delivery Method 10/09/22 20:30 10/09/22 20:30 Temperature Pulse Rate 66 Respiratory Rate 25 H Blood Pressure 172/71 H Pulse Oximetry 95 Oxygen Delivery Method Room Air MDM - GI Bleed <Lola Rosa PA-C - Last Filed: 10/09/22 20:41> Lab Data 10/09/22 22:15 10/09/22 22:15 Labs: Lab Results 10/09/22 10/09/22 10/09/22 Range/Units 17:25 17:30 18:00 WBC 7.6 (4.5-11.0) X10^3/uL RBC 2.58 L (4.0-5.2) X10^6/uL Hgb 9.2 L (12.0-16.0) g/dL Hct 26.3 L (36-46) % MCV 102.2 H (80-100) fL MCH 35.9 H (26-34) PG MCHC 35.1 (30-36) % RDW 14.8 (11.6-14.8) % Plt Count 343 (150-400) X10^3/uL Neut % (Auto) 76.1 H (50-75) % Lymph % (Auto) 14.9 L (25-40) % [place] % (Auto) 8.1 (3-14) % Eos % (Auto) 0.6 L (2-4) % Baso % (Auto) 0.3 (0-2) % Neut # (Auto) 5800 (0330-3175) /uL Lymph # (Auto) 1100 (9515-0937) /uL [place] # (Auto) 600 (0-900) /uL Eos # (Auto) 0 (0-450) /uL Baso # (Auto) 0 (0-100) /uL PT (10.1-12.7) SECONDS INR (0.9-1.3) APTT (26-36) SECONDS Sodium 120 L (137-145) mmol/L Potassium 4.7 (3.4-5.1) mmol/L Chloride 89 L (98-107) mmol/L Carbon Dioxide 21 L (22-32) mmol/L BUN 11 (7-17) mg/dL Creatinine 0.96 (0.52-1.04) mg/dL Estimated GFR 58 L (>60) mL/min BUN/Creatinine Ratio 11.5 (6-22) Glucose 105 (80-110) mg/dL Calcium 8.5 (8.4-10.2) mg/dL Total Bilirubin 0.3 (0.2-1.3) mg/dL AST 30 (14-36) IU/L ALT 17 (<35) IU/L Alkaline Phosphatase 81 (38-126) U/L Total Protein 7.4 (6.3-8.2) g/dL Albumin 3.8 (3.5-5.0) g/dL Globulin 3.6 (1.7-4.1) g/dL Albumin/Globulin Ratio 1.1 (1.0-2.8) Lipase 134 (23-300) U/L TSH (0.47-4.68) uIU/mL Blood Type O Negative Antibody Screen Negative 10/09/22 10/09/22 Range/Units 18:00 18:00 WBC (4.5-11.0) X10^3/uL RBC (4.0-5.2) X10^6/uL Hgb (12.0-16.0) g/dL Hct (36-46) % MCV (80-100) fL MCH (26-34) PG MCHC (30-36) % RDW (11.6-14.8) % Plt Count (150-400) X10^3/uL Neut % (Auto) (50-75) % Lymph % (Auto) (25-40) % [place] % (Auto) (3-14) % Eos % (Auto) (2-4) % Baso % (Auto) (0-2) % Neut # (Auto) (6710-4513) /uL Lymph # (Auto) (2285-2662) /uL [place] # (Auto) (0-900) /uL Eos # (Auto) (0-450) /uL Baso # (Auto) (0-100) /uL PT 12.2 (10.1-12.7) SECONDS INR 1.1 (0.9-1.3) APTT 28 (26-36) SECONDS Sodium (137-145) mmol/L Potassium (3.4-5.1) mmol/L Chloride (98-107) mmol/L Carbon Dioxide (22-32) mmol/L BUN (7-17) mg/dL Creatinine (0.52-1.04) mg/dL Estimated GFR (>60) mL/min BUN/Creatinine Ratio (6-22) Glucose (80-110) mg/dL Calcium (8.4-10.2) mg/dL Total Bilirubin (0.2-1.3) mg/dL AST (14-36) IU/L ALT (<35) IU/L Alkaline Phosphatase (38-126) U/L Total Protein (6.3-8.2) g/dL Albumin (3.5-5.0) g/dL Globulin (1.7-4.1) g/dL Albumin/Globulin Ratio (1.0-2.8) Lipase (23-300) U/L TSH 4.37 (0.47-4.68) uIU/mL Blood Type Antibody Screen Imaging Data Abdominal x-ray: Radiologist's Impression: PROCEDURE:? XR ABDOMEN MIN 2V ? INDICATIONS:? Small, loose stools, RUQ pain ? TECHNIQUE:? 2 views of the abdomen were acquired.? ? COMPARISON:? [facility], CT, CT ABDOMEN PELVIS W CON, 10/05/2022, 15:52. ? FINDINGS:? Surgical changes and devices:? Pelvis abdominal wall postoperative changes are seen, with sutures. ? Bowel:? No pneumoperitoneum.? There is dilatation of small bowel loops can be seen, 3.7 cm.? Yes is prominence of the transverse colon is also seen, measuring nearly 10 cm. ? Soft tissues:? No masses; visualized solid organ contours appear normal in size.? No suspicious abdominal calcifications.? ? Bones:? 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 No suspicious bony abnormalities.? Age-appropriate bony degenerative changes are seen.? Moderate levoconvex scoliosis is seen.? ? ? IMPRESSION:? Gaseous prominence of the large and small bowel, likely related to ileus. If clinically appropriate, please consider a follow-up CT of the abdomen and pelvis.? If oral contrast is given, a long dwell time of at least 4 hours would be recommended. ? ? ? Additional findings:? Remote, poorly healed left follows fractures, better seen by CT Pelvis anterior abdominal wall postoperative sutures Bony degenerative change with levoconvex scoliosis ? Dictated by: Sree Canchola M.D. on 10/09/2022 at 18:25 ? ? Approved by: Sree Canchola M.D. on 10/09/2022 at 18:28 ? RUQ Ultrasound: Radiologist's Impression: ? PROCEDURE: US ABDOMEN LIMITED ? INDICATIONS:? RIGHT UPPER QUADRANT PAIN ? TECHNIQUE:? Real-time focused scanning was performed of the abdomen, with image documentation.? ? COMPARISON:? [facility], CT, CT ABDOMEN PELVIS W CON, 10/05/2022, 15:52.? [facility], CR, XR ABDOMEN MIN 2V, 10/09/2022, 18:52. ? FINDINGS:? Liver demonstrates normal size and normal overall echogenicity.? There is a lack 6 mm hemangioma within the posterior lateral left liver lobe.? ? The gallbladder is enlarged in size.? No findings of gallstones or sludge are seen.? The gallbladder wall is not thickened, measuring 3 mm or less.? No specific pericholecystic fluid is seen.? The sonographic Ramírez sign is negative. ? There is no biliary dilatation, the common bile duct measures 4 mm.? ? No significant pancreatic abnormality is seen on these images.? IMPRESSION:? Enlarged gallbladder, without additional abnormality seen. ? No biliary dilatation. ? ? ? Additional findings:? Apparent liver hemangioma ? ? Dictated by: Sree Canchola M.D. on 10/09/2022 at 18:52 ? ? Approved by: Sree Canchola M.D. on 10/09/2022 at 18:54 ? CT scan - abdomen/pelvis: Radiologist's Impression: PROCEDURE:? CT ABDOMEN PELVIS W CON ? INDICATIONS:? Prominence of transverse colon on xray, nearly 10 cm. ? TECHNIQUE:? After the administration of oral and IV contrast, axial sections were acquired from the lung bases to the pubic symphysis.? Coronal and sagittal reformats were performed.? For radiation dose reduction, the following was used:? automated exposure control, adjustment of mA and/or kV according to patient size. ? COMPARISON:? [facility], US, US ABDOMEN LIMITED, 10/09/2022, 19:22.? [facility], CR, XR ABDOMEN MIN 2V, 10/09/2022, 18:52.? [facility], CT, CT ABDOMEN PELVIS W CON, 10/05/2022, 15:52. ? FINDINGS:? Image quality:? Excellent.? ? Lung bases:? Unremarkable.? A small hiatal hernia is incidentally noted.? ? Heart:? No significant findings. ? ? ABDOMEN: Liver:? Unremarkable.? ? Gallbladder:? As demonstrated by ultrasound, the gallbladder is distended.? No additional gallbladder abnormality is seen.? ? Biliary ducts:? Unremarkable.? ? Pancreas:? Unremarkable.? ? Spleen:? Unremarkable.? ? Adrenal Glands:? Unremarkable.? ? Kidneys and Ureters:? Unremarkable.? ? ? Stomach and Bowel:? No dilated loops of small bowel are seen. Gaseous prominence of the colon can be seen, with loops measuring up to 6 cm.? There is liquid stool seen throughout the colon, including at the rectum. No significant gastric abnormality is seen.? Peritoneum:? No abnormal intraperitoneal fluid.? No free air.? ? Ventral Wall: ? No hernia.? Abdominal Nodes:? No retroperitoneal or mesenteric adenopathy by size criteria.? Vessels:? Aorta and inferior vena cava are normal in size.? Atherosclerotic calcification is noted.? ? PELVIS: Pelvic Organs: This patient is status post hysterectomy. No adnexal masses are seen.? Bladder:? Unremarkable.? ? Pelvic Nodes: No enlarged lymph nodes.? Miscellaneous: No inguinal hernias are seen.? ? Postoperative change can be seen of the anterior wall of the pelvis, with sutures seen. ? Bones:? Remote, poorly healed bilateral rib fractures are seen.? Remote, poorly healed fractures of the left pelvis can be seen.? S shaped scoliosis is seen.? Degenerative changes are seen throughout, which are worst involving the lumbar spine. ? ? IMPRESSION:? ? Gaseous prominence of the colon can be seen, with loops measuring up to 5 cm. (The plain film appearance is now considered to be artifactual, with 2 adjacent loops measured together.) ? Liquid stool can be seen throughout the colon, including at the rectum.? Please correlate with clinical diarrhea. ? No dilated loops of small bowel are seen. ? ? ? Additional findings:? Remote, poorly healed bilateral rib fractures Small hiatal hernia Distended gallbladder, without additional abnormality seen. Hysterectomy? Sutures seen within the anterior wall of the pelvis Remote, poorly healed fractures of the left pelvis S shaped scoliosis Degenerative changes throughout, worst within the lumbar spine ? Dictated by: Sree Canchola M.D. on 10/09/2022 at 19:00 ? ? Approved by: Sree Canchola M.D. on 10/09/2022 at 19:06 ? ECG Data Interpretation: Sinus rhythm with first-degree AV block with [place]: 214, left axis deviation and left bundle-branch block. Also reviewed by Dr. Giron. MDM Narrative Medical decision making narrative: CC: This is a new problem, uncertain diagnosis possible systemic effects Complicating co-morbidities: GERD, type 2 diabetes treated with insulin, hypothyroidism, hypertension, hyperlipidemia Corroborating data: Data collected from: patient and daughter Social determinants of health that may influence the patients condition: Medical records reviewed: ED visit 10/05/2022 Differential considered: Cholecystitis, constipation, muscle spasm, lower GI bleed, appendicitis, pancreatitis Exam documented above, pertinent findings include: Lab Test results independently reviewed as above. hemoccult stool was negative, findings: CBC shows macrocytic anemia with no white count elevation but hemoglobin of 9.2 which is 0.7 points lower than 4 days ago, sodium 120 (level was 122 four days ago), patient's blood sugar was 105 at 6:00 p.m. so she did not need insulin at this time. Independently reviewed EKG as above: Imaging studies independently reviewed: Abdominal x-ray shows dilatation of small-bowel loops 3.7 cm and prominence of transverse colon measuring nearly 10 cm per radiologist's report. She has been sent for a CT abdomen and pelvis. Consultations: MAGDALENA Deras Hospitalist requested consult with General surgery. General surgeon Dr. Blanc was called and she discussed that patient's imaging appears to be an adynamic ileus. We discussed that patient has macrocytic anemia, normal PT, INR and PTT, normal AST and ALT, I have put in a consult order to Dr. Blanc so that she can be aware of patient's progress. I notified MAGDALENA Deras of our discussion and she will admit patient. Treatments: Patient has been given 2 mg of morphine for the pain which she describes in her right back as well as 15 mg of Toradol. Re-evaluations: Patient reports pain in her right back, and was given 2 mg of morphine, due to pain continuing a 1/2 hour later, she was given 15 mg of Toradol. GFR is 58. Discussion: Discussed with Dr. Stephen concerned for patient's low-sodium, distended bowel on CT without evidence of obstruction, and concern for dark stools although Hemoccult was negative. She will be admitted. Disposition: see below, along with detailed discharge instructions that have been reviewed with patient as well as indications for ED re-evaluation and additional outpatient follow up <Megan Stephen, DO - Last Filed: 10/10/22 01:02> Lab Data Labs: Lab Results 10/09/22 10/09/22 10/09/22 Range/Units 17:25 17:30 18:00 WBC 7.6 (4.5-11.0) X10^3/uL RBC 2.58 L (4.0-5.2) X10^6/uL Hgb 9.2 L (12.0-16.0) g/dL Hct 26.3 L (36-46) % MCV 102.2 H (80-100) fL MCH 35.9 H (26-34) PG MCHC 35.1 (30-36) % RDW 14.8 (11.6-14.8) % Plt Count 343 (150-400) X10^3/uL Neut % (Auto) 76.1 H (50-75) % Lymph % (Auto) 14.9 L (25-40) % [place] % (Auto) 8.1 (3-14) % Eos % (Auto) 0.6 L (2-4) % Baso % (Auto) 0.3 (0-2) % Neut # (Auto) 5800 (1609-2276) /uL Lymph # (Auto) 1100 (2040-0304) /uL [place] # (Auto) 600 (0-900) /uL Eos # (Auto) 0 (0-450) /uL Baso # (Auto) 0 (0-100) /uL PT (10.1-12.7) SECONDS INR (0.9-1.3) APTT (26-36) SECONDS Sodium 120 L (137-145) mmol/L Potassium 4.7 (3.4-5.1) mmol/L Chloride 89 L (98-107) mmol/L Carbon Dioxide 21 L (22-32) mmol/L BUN 11 (7-17) mg/dL Creatinine 0.96 (0.52-1.04) mg/dL Estimated GFR 58 L (>60) mL/min BUN/Creatinine Ratio 11.5 (6-22) Glucose 105 (80-110) mg/dL Calcium 8.5 (8.4-10.2) mg/dL Total Bilirubin 0.3 (0.2-1.3) mg/dL AST 30 (14-36) IU/L ALT 17 (<35) IU/L Alkaline Phosphatase 81 (38-126) U/L Total Protein 7.4 (6.3-8.2) g/dL Albumin 3.8 (3.5-5.0) g/dL Globulin 3.6 (1.7-4.1) g/dL Albumin/Globulin Ratio 1.1 (1.0-2.8) Lipase 134 (23-300) U/L TSH (0.47-4.68) uIU/mL Blood Type O Negative Antibody Screen Negative 10/09/22 10/09/22 Range/Units 18:00 18:00 WBC (4.5-11.0) X10^3/uL RBC (4.0-5.2) X10^6/uL Hgb (12.0-16.0) g/dL Hct (36-46) % MCV (80-100) fL MCH (26-34) PG MCHC (30-36) % RDW (11.6-14.8) % Plt Count (150-400) X10^3/uL Neut % (Auto) (50-75) % Lymph % (Auto) (25-40) % [place] % (Auto) (3-14) % Eos % (Auto) (2-4) % Baso % (Auto) (0-2) % Neut # (Auto) (1871-0079) /uL Lymph # (Auto) (9632-3258) /uL [place] # (Auto) (0-900) /uL Eos # (Auto) (0-450) /uL Baso # (Auto) (0-100) /uL PT 12.2 (10.1-12.7) SECONDS INR 1.1 (0.9-1.3) APTT 28 (26-36) SECONDS Sodium (137-145) mmol/L Potassium (3.4-5.1) mmol/L Chloride (98-107) mmol/L Carbon Dioxide (22-32) mmol/L BUN (7-17) mg/dL Creatinine (0.52-1.04) mg/dL Estimated GFR (>60) mL/min BUN/Creatinine Ratio (6-22) Glucose (80-110) mg/dL Calcium (8.4-10.2) mg/dL Total Bilirubin (0.2-1.3) mg/dL AST (14-36) IU/L ALT (<35) IU/L Alkaline Phosphatase (38-126) U/L Total Protein (6.3-8.2) g/dL Albumin (3.5-5.0) g/dL Globulin (1.7-4.1) g/dL Albumin/Globulin Ratio (1.0-2.8) Lipase (23-300) U/L TSH 4.37 (0.47-4.68) uIU/mL Blood Type Antibody Screen Discharge Plan Departure Patient Disposition: Admitted as Observation Clinical Impression: Chronic hyponatremia, Dilated bowel, Abdominal pain Admit Date/Time: 10/09/22 20:41 Admit Provider: Virgie Deras <Megan Stephen DO - Last Filed: 10/10/22 01:02> Cosign ED Attending Cosignature Attestation: I was immediately available in the department for consultation. Documentation has been reviewed.
--- NOTE | 2022-10-09 17:59 | PC.NURSE ---
Blood hemacult test negative. Provider aware.
[2022-10-09 18:18] LABS: Alanine Aminotransferase 17 IU/L (<35); Albumin 3.8 g/dL (3.5-5.0); Albumin Globulin Ratio 1.1 (1.0-2.8); Alkaline Phosphatase 81 U/L (38-126); Aspartate Aminotransferase 30 IU/L (14-36); BUN Creatinine Ratio 11.5 (6-22); Bilirubin Total 0.3 mg/dL (0.2-1.3); Blood Urea Nitrogen 11 mg/dL (7-17); Calcium 8.5 mg/dL (8.4-10.2); Carbon Dioxide 21 mmol/L (22-32); Chloride 89 mmol/L (98-107); Estimated Glomerular Filt Rate 58 mL/min (>60); Globulin 3.6 g/dL (1.7-4.1); Glucose 105 mg/dL (80-110); HEMOLYSIS < 15 (0-50); Lipase 134 U/L (23-300); Potassium 4.7 mmol/L (3.4-5.1); Sodium 120 mmol/L (137-145); Total Protein 7.4 g/dL (6.3-8.2)
--- NOTE | 2022-10-09 18:26 | PC.NURSE ---
Spoke with caregiver at [facility]. She reported 5-6 loose, small, dark stools today. Provider to be made aware.
[2022-10-09] MEDS: MORPHINE 2 MG/ML INJ IV (18:31)
--- NOTE | 2022-10-09 18:40 | DI.US.S_ITS ---
PROCEDURE: US ABDOMEN LIMITED INDICATIONS: RIGHT UPPER QUADRANT PAIN TECHNIQUE: Real-time focused scanning was performed of the abdomen, with image documentation. COMPARISON: [facility], CT, CT ABDOMEN PELVIS W CON, 10/05/2022, 15:52. [facility], CR, XR ABDOMEN MIN 2V, 10/09/2022, 18:52. FINDINGS: Liver demonstrates normal size and normal overall echogenicity. There is a lack 6 mm hemangioma within the posterior lateral left liver lobe. The gallbladder is enlarged in size. No findings of gallstones or sludge are seen. The gallbladder wall is not thickened, measuring 3 mm or less. No specific pericholecystic fluid is seen. The sonographic Ramírez sign is negative. There is no biliary dilatation, the common bile duct measures 4 mm. No significant pancreatic abnormality is seen on these images. IMPRESSION: Enlarged gallbladder, without additional abnormality seen. No biliary dilatation. Additional findings: Apparent liver hemangioma Dictated by: Sree Canchola M.D. on 10/09/2022 at 18:52 Approved by: Sree Canchola M.D. on 10/09/2022 at 18:54
--- NOTE | 2022-10-09 18:54 | DI.RAD.S_ITS ---
PROCEDURE: XR ABDOMEN MIN 2V INDICATIONS: Small, loose stools, RUQ pain TECHNIQUE: 2 views of the abdomen were acquired. COMPARISON: [facility], CT, CT ABDOMEN PELVIS W CON, 10/05/2022, 15:52. FINDINGS: Surgical changes and devices: Pelvis abdominal wall postoperative changes are seen, with sutures. Bowel: No pneumoperitoneum. There is dilatation of small bowel loops can be seen, 3.7 cm. Yes is prominence of the transverse colon is also seen, measuring nearly 10 cm. Soft tissues: No masses; visualized solid organ contours appear normal in size. No suspicious abdominal calcifications. 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 No suspicious bony abnormalities. Age-appropriate bony degenerative changes are seen. Moderate levoconvex scoliosis is seen. IMPRESSION: Gaseous prominence of the large and small bowel, likely related to ileus. If clinically appropriate, please consider a follow-up CT of the abdomen and pelvis. If oral contrast is given, a long dwell time of at least 4 hours would be recommended. Additional findings: Remote, poorly healed left follows fractures, better seen by CT Pelvis anterior abdominal wall postoperative sutures Bony degenerative change with levoconvex scoliosis Dictated by: Sree Canchola M.D. on 10/09/2022 at 18:25 Approved by: Sree Canchola M.D. on 10/09/2022 at 18:28
[2022-10-09 19:32] LABS: INR 1.1 (0.9-1.3); Prothrombin Time 12.2 SECONDS (10.1-12.7)
[2022-10-09 19:34] LABS: PTT Partial Thromboplastin Tim 28 SECONDS (26-36)
--- NOTE | 2022-10-09 19:37 | DI.CT.S_ITS ---
PROCEDURE: CT ABDOMEN PELVIS W CON INDICATIONS: Prominence of transverse colon on xray, nearly 10 cm. TECHNIQUE: After the administration of oral and IV contrast, axial sections were acquired from the lung bases to the pubic symphysis. Coronal and sagittal reformats were performed. For radiation dose reduction, the following was used: automated exposure control, adjustment of mA and/or kV according to patient size. COMPARISON: [facility], US, US ABDOMEN LIMITED, 10/09/2022, 19:22. [facility], CR, XR ABDOMEN MIN 2V, 10/09/2022, 18:52. [facility], CT, CT ABDOMEN PELVIS W CON, 10/05/2022, 15:52. FINDINGS: Image quality: Excellent. Lung bases: Unremarkable. A small hiatal hernia is incidentally noted. Heart: No significant findings. ABDOMEN: Liver: Unremarkable. Gallbladder: As demonstrated by ultrasound, the gallbladder is distended. No additional gallbladder abnormality is seen. Biliary ducts: Unremarkable. Pancreas: Unremarkable. Spleen: Unremarkable. Adrenal Glands: Unremarkable. Kidneys and Ureters: Unremarkable. Stomach and Bowel: No dilated loops of small bowel are seen. Gaseous prominence of the colon can be seen, with loops measuring up to 6 cm. There is liquid stool seen throughout the colon, including at the rectum. No significant gastric abnormality is seen. Peritoneum: No abnormal intraperitoneal fluid. No free air. Ventral Wall: No hernia. Abdominal Nodes: No retroperitoneal or mesenteric adenopathy by size criteria. Vessels: Aorta and inferior vena cava are normal in size. Atherosclerotic calcification is noted. PELVIS: Pelvic Organs: This patient is status post hysterectomy. No adnexal masses are seen. Bladder: Unremarkable. Pelvic Nodes: No enlarged lymph nodes. Miscellaneous: No inguinal hernias are seen. Postoperative change can be seen of the anterior wall of the pelvis, with sutures seen. Bones: Remote, poorly healed bilateral rib fractures are seen. Remote, poorly healed fractures of the left pelvis can be seen. S shaped scoliosis is seen. Degenerative changes are seen throughout, which are worst involving the lumbar spine. IMPRESSION: Gaseous prominence of the colon can be seen, with loops measuring up to 5 cm. (The plain film appearance is now considered to be artifactual, with 2 adjacent loops measured together.) Liquid stool can be seen throughout the colon, including at the rectum. Please correlate with clinical diarrhea. No dilated loops of small bowel are seen. Additional findings: Remote, poorly healed bilateral rib fractures Small hiatal hernia Distended gallbladder, without additional abnormality seen. Hysterectomy Sutures seen within the anterior wall of the pelvis Remote, poorly healed fractures of the left pelvis S shaped scoliosis Degenerative changes throughout, worst within the lumbar spine Dictated by: Sree Canchola M.D. on 10/09/2022 at 19:00 Approved by: Sree Canchola M.D. on 10/09/2022 at 19:06
[2022-10-09 19:58] LABS: Thyroid Stimulating Hormone 4.37 uIU/mL (0.47-4.68)
[2022-10-09] MEDS: KETOROLAC 30 MG/ML VIAL 15 MG IV (20:16)
--- NOTE | 2022-10-09 20:58 | DI.RAD.S_ITS ---
PROCEDURE: XR CHEST 2V INDICATIONS: Weakness/HypoNA+ TECHNIQUE: 2 views of the chest were acquired. COMPARISON: [facility], CR, XR CHEST 1V, 10/05/2022, 13:08. FINDINGS: Surgical changes and devices: None. Lungs and pleura: There is pulmonary vascular prominence suggestive of mild edema. No pleural effusions or pneumothorax. Mediastinum: Mediastinal contours are normal. Heart size is enlarged. Bones and chest wall: No suspicious bony abnormalities. Soft tissues appear unremarkable. IMPRESSION: 1. Pulmonary vascular prominence suggestive of mild edema. Dictated by: Cooper Michel M.D. on 10/09/2022 at 22:03 Approved by: Cooper Michel M.D. on 10/09/2022 at 22:10
--- NOTE | 2022-10-09 21:08 | P.HP_ITS ---
History of Present Illness History of Present Illness Date Patient Seen: 10/09/22 Time Patient Seen: 21:08 Chief complaint: Abd pain LUQ Narrative: Awilda Lincoln is an 86-year-old female with a history of dementia, osteoporosis, GERD, depression, hypothyroidism, hyperlipidemia, hypertension, microcytic anemia, and diabetes who lives at [facility] and was reported to have 5-6 loose dark/tarry stools today, patient does take iron, was seen in the ED on 10/05/2022 for abdominal pain workup was unremarkable patient was released home. Patient also had a recent UTI and was on antibiotics. Also patient was started on GoLYTELY 4 days ago for constipation she stopped taking it 24 hours ago- resulting in her diarrhea. Presented to the ED today complaining of right upper quadrant pain, radiating around into her back. Patient was found to have hypertensive urgency, tachypneic in the ED BP 191/144, 181/71 respiratory rates 25-32, was given morphine & Toradol for abdominal pain. Unable to obtain accurate HPI, ROS, family history due to patient's dementia confusion. Daughter Kristen (POA) is at bedside, and provides some information? She denies shortness of breath, chest pain, body aches or chills or fever.? She denies any upper respiratory symptoms such as sore throat, nasal congestion or cough.? She denies nausea, vomiting, nor numbness or weakness, pain with urination or frequency- The daughter endorses these statement.? On admit temp 98.3?, BP 181/71, 67, 19, 98% on room air. Patient is pleasantly confused somewhat directable, orientated to self and recognizes her daughter but confusion and aggitation appears to be increasing likely . Patient does not appear to be in any pain or discomfort although quite restless in the b ed. H&H stable for her microcytic anemia HGB 9.2/HCT 26.3, MCV 102.2, MCH 35.9. Moderate hyponatremia sodium 120, chloride 89, bicarb 21, GFR 58. The rest of patient's chemistry panel and liver are unremarkable. TSH was normal, abdominal CT showed gaseous colon loop distention 5 cm, with liquid stools throughout, and distended gallbladder, abdominal ultrasound showed enlarged gallbladder, tanesha ent's guaiac stool was negative. No further workup was completed ED. Patient admitted for right upper quadrant pain, moderate hyponatremia, with hypertensive urgency. [facility] Medical History Dementia GERD (gastroesophageal reflux disease) History of diabetes mellitus, type II Hyperlipidemia Hypertension Hypothyroidism Microcytic anemia Osteoporosis Surgical History History of hysterectomy Family History Father No problems noted. Mother No problems noted. Social History Smoking Status: Never smoker Meds Home Medications and Allergies Home Medications Medication Instructions Recorded Confirmed Type Lactobacillus acidophilus 1 tab PO QDAY ##0 01/26/17 07/13/22 History acetaminophen 500 mg tablet 500 mg PO ##0 01/26/17 07/13/22 History alendronate 35 mg tablet 35 mg PO ##0 01/26/17 07/13/22 History ascorbic acid (vitamin C) 500 mg 500 mg PO QDAY ##0 01/26/17 07/13/22 History tablet aspirin 81 mg tablet,delayed 81 mg PO QDAY ##0 01/26/17 07/13/22 History release calcium carbonate 500 mg calcium 1 tab PO ##0 01/26/17 07/13/22 History (1,250 mg) tablet celecoxib 200 mg capsule (Celebrex) 200 mg PO [facility] ##0 01/26/17 07/13/22 History cholecalciferol (vitamin D3) 125 5,000 unit PO QDAY ##0 01/26/17 07/13/22 History mcg (5,000 unit) capsule esomeprazole magnesium 40 mg 40 mg PO QDAY ##0 01/26/17 07/13/22 History capsule,delayed release (Nexium) ferrous sulfate 325 mg (65 mg 325 mg PO QDAY ##0 01/26/17 07/13/22 History iron) tablet (Iron (ferrous sulfate)) fluoxetine 20 mg capsule 20 mg PO QDAY ##0 01/26/17 07/13/22 History gabapentin 300 mg capsule 300 mg PO BID ##0 01/26/17 07/13/22 History (Neurontin) gemfibrozil 600 mg tablet 600 mg PO BIDAC ##0 01/26/17 07/13/22 History insulin aspar prot-insulin aspart 0 units SQ TIDCC ##0 01/26/17 07/13/22 History 100 unit/mL (70-30) subcutaneous pen (Novolog Mix 70-30FlexPen U-100) insulin glargine 100 unit/mL (3 0 unit SQ QDAY ##0 01/26/17 07/13/22 History mL) subcutaneous pen (Lantus Solostar U-100 Insulin) levothyroxine 50 mcg tablet 50 mcg PO QAM ##0 01/26/17 10/09/22 History metformin 1,000 mg tablet,extended 1,000 mg PO BID ##0 01/26/17 10/09/22 History release 24hr spironolactone 25 mg tablet 25 mg QDAY ##0 01/26/17 07/13/22 History zolpidem 10 mg tablet 10 mg PO HSP PRN ##0 01/26/17 07/13/22 History cefuroxime axetil 250 mg tablet 250 mg PO BID #20 tabs 09/13/17 07/13/22 Rx phenazopyridine 200 mg tablet 200 mg PO TID #6 tabs 09/14/17 07/13/22 Rx fluconazole 150 mg tablet 150 mg PO ONCE #1 tab 03/31/18 07/13/22 Rx insulin aspart U-100 100 unit/mL See Rx Instructions SUBCUT BID 08/02/21 07/13/22 History (3 mL) subcutaneous pen (Novolog FlexPen U-100 Insulin aspart) insulin degludec 100 unit/mL (3 15 unit SUBCUT DAILY 08/02/21 07/13/22 History mL) subcutaneous pen (Tresiba FlexTouch U-100 insulin) ketoconazole 2 % topical cream 1 applic topical DAILY 08/02/21 07/13/22 History loratadine 10 mg tablet (Allergy 10 mg PO DAILY 08/02/21 07/13/22 History Relief (loratadine)) losartan 25 mg tablet 50 mg PO DAILY #0 tabs 08/02/21 10/09/22 History rosuvastatin 10 mg tablet 10 mg PO DAILY 08/02/21 07/13/22 History triamcinolone acetonide 0.1 % 1 applic topical DAILY 08/02/21 07/13/22 History topical cream phenazopyridine 200 mg tablet 200 mg PO TID Dysuria 6 doses #6 07/13/22 07/13/22 Rx (Pyridium) tabs ondansetron 4 mg disintegrating 4 mg PO Q8H PRN nausea and 10/05/22 Rx tablet vomiting #10 tabs peg 3350-electrolytes 236 240 ml PO Q10M #2,000 mL 10/05/22 Rx gram-22.74 gram-6.74 gram-5.86 gram solution (GaviLyte-G) Allergies Allergy/AdvReac Type Severity Reaction Status Date / Time ALONDRA Inhibitors Allergy Verified 10/09/22 17:27 ciprofloxacin Allergy Verified 10/09/22 17:27 Review of Systems Review of Systems Narrative: Unable to obtain accurate ROS due to dementia. Exam Vital Signs (past 8 hours): - 10/09/22 17:20 10/09/22 17:18 10/09/22 17:30 Temperature 98.3 F Pulse Rate 68 69 66 Respiratory Rate 20 25 H Blood Pressure 130/62 Pulse Oximetry 98 97 98 Oxygen Delivery Method Room Air 10/09/22 17:39 10/09/22 17:39 10/09/22 18:00 Temperature Pulse Rate 63 Respiratory Rate 30 H Blood Pressure 169/72 H 169/74 H Pulse Oximetry 97 Oxygen Delivery Method Room Air 10/09/22 18:00 10/09/22 18:30 10/09/22 18:31 Temperature Pulse Rate 64 64 Respiratory Rate 33 H 22 Blood Pressure 137/85 Pulse Oximetry 99 98 Oxygen Delivery Method 10/09/22 18:31 10/09/22 18:59 10/09/22 19:01 Temperature Pulse Rate 65 80 Respiratory Rate 32 H Blood Pressure 181/71 H Pulse Oximetry 98 Oxygen Delivery Method 10/09/22 19:02 10/09/22 20:00 10/09/22 20:24 Temperature Pulse Rate 67 68 Respiratory Rate 19 26 H Blood Pressure 191/144 H Pulse Oximetry 97 Oxygen Delivery Method 10/09/22 20:24 10/09/22 20:26 10/09/22 20:26 Temperature Pulse Rate 66 65 Respiratory Rate 31 H 25 H Blood Pressure 167/73 H Pulse Oximetry 92 96 Oxygen Delivery Method 10/09/22 20:30 10/09/22 20:30 Temperature Pulse Rate 66 Respiratory Rate 25 H Blood Pressure 172/71 H Pulse Oximetry 95 Oxygen Delivery Method Room Air Oxygen Delivery Method Room Air Narrative Exam Narrative: General: Patient is a well-developed, well-nourished pleasantly confused elderly female who is restless and agitated in the bed but does not appear to be in any pain or discomfort, in no distress at this time. HEENT: Normocephalic, atraumatic, extraocular muscles intact, oral pharynx is clear and mucous membranes are dry. Neck is supple and symmetric, trachea is midline, no adenopathy, no thyroid enlargement, nontender, no masses palpated. Negative for JVD Chest: Normal AP diameter and contour without kyphoscoliosis, no nasal flaring, retractions, or tachypneic labored breathing. Lungs: Auscultation of all lung avila are clear without adventitious sounds, wheezes, rhonchi, or rales. Cardio: regular rate and rhythm without murmur, rubs, or gallops, no carotid bruit, no cardiac pulsations present. Abdomen: Soft nontender, negative for organomegaly, or masses. Bowel sounds are present in all 4 quadrants without guarding or rebound, no CVA tenderness. Musculoskeletal: Muscle strength and tone are equal within normal limits, no deformity, crepitus, effusions, cyanosis, clubbing or edema present. Full range of motion intact radial and pedal pulses are normal. Skin: Warm dry and intact without rashes, ulcerations or petechiae. Patient appears hypovolemic, no signs of heart failure or fluid overload. Neuro: Alert and orientated to self & daughter only, moves all extremities, sensation to touch intact, no gross deficits noted of cranial nerves. Psych: Patient has a well-kept appearance, pleasant affect, and confused secondary to dementia. Objective Labs 10/09/22 17:30 10/09/22 18:00 Labs: Laboratory Results - last 24 hr 10/09/22 10/09/22 10/09/22 17:25 17:30 18:00 WBC 7.6 RBC 2.58 L Hgb 9.2 L Hct 26.3 L MCV 102.2 H MCH 35.9 H MCHC 35.1 RDW 14.8 Plt Count 343 Neut % (Auto) 76.1 H Lymph % (Auto) 14.9 L [place] % (Auto) 8.1 Eos % (Auto) 0.6 L Baso % (Auto) 0.3 Neut # (Auto) 5800 Lymph # (Auto) 1100 [place] # (Auto) 600 Eos # (Auto) 0 Baso # (Auto) 0 PT INR APTT Sodium 120 L Potassium 4.7 Chloride 89 L Carbon Dioxide 21 L BUN 11 Creatinine 0.96 Estimated GFR 58 L BUN/Creatinine Ratio 11.5 Glucose 105 Calcium 8.5 Total Bilirubin 0.3 AST 30 ALT 17 Alkaline Phosphatase 81 Total Protein 7.4 Albumin 3.8 Globulin 3.6 Albumin/Globulin Ratio 1.1 Lipase 134 TSH Blood Type O Negative Antibody Screen Negative 10/09/22 10/09/22 18:00 18:00 WBC RBC Hgb Hct MCV MCH MCHC RDW Plt Count Neut % (Auto) Lymph % (Auto) [place] % (Auto) Eos % (Auto) Baso % (Auto) Neut # (Auto) Lymph # (Auto) [place] # (Auto) Eos # (Auto) Baso # (Auto) PT 12.2 INR 1.1 APTT 28 Sodium Potassium Chloride Carbon Dioxide BUN Creatinine Estimated GFR BUN/Creatinine Ratio Glucose Calcium Total Bilirubin AST ALT Alkaline Phosphatase Total Protein Albumin Globulin Albumin/Globulin Ratio Lipase TSH 4.37 Blood Type Antibody Screen Assessment & Plan Assessment & Plan narrative: Awilda Lincoln is an 86-year-old female with a history of dementia, osteoporosis, GERD, depression, hypothyroidism, hyperlipidemia, hypertension, microcytic anemia, and diabetes who lives at [facility] and was reported to have 5-6 loose dark/tarry stools today, c/o RT UQ Abd pain. Patient admitted for abdominal pain, moderate hyponatremia secondary to gastrointestinal loss, and hypertensive urgency. We will attempt initial rehydration to correct moderate hyponatremia if unsuccessful we will stop fluids implement fluid restriction, salt tabs. Dr. Blanc general surgery to consult on dilated loops of the bowel. Abdominal pain, right upper quadrant, with radiation to back, acute, present on admission * Diarrhea x4 days * Suspect abdominal pain is secondary to the use of GoLYTELY resulting in significant gas and diarrhea over the past 4 days. * R/O GI bleed * ABD CT:Gaseous prominence of the colon can be seen, with loops measuring up to 5 cm, ABD U/S:enlarged GB, liquid stool observed throughout the entire colon. * Dr. Blanc to consult General surgery * CXR: Possible pulmonary edema * Pain management, simethicone * Gentle fluid hydration NS at 80 cc/HR overnight * Monitor for GI bleed, ED guaiac negative * Repeat H&H, trend daily Moderate hyponatremia secondary to gastrointestinal loss, acute, present on admission * Likely secondary to gastrointestinal loss from diarrhea * Goal to increase serum sodium initially by no more than 4-6 mEq during the 1st 24 hours to prevent the risk of osmotic demyelination syndrome, sodium at 24 hours goal 126, but no greater than 130. If greater than 130 start D5W infusion to lower to an appropriate amount. If worsens with saline, likely SIADH start fluid restriction, consider salt tablets and diuretics. * Repeat CMP at 10:00 p.m., trend daily * Ordered serum osmolality, urine osmolality, urine sodium, UA * Seizure precautions * Reported loose stools-diarrhea: Ordered loperamide 4 mg after 1st loose so may repeat 2 mg after every loose stool with a max of 16 mg q.day * Possible GI bleed, repeat H&H at 10:00 p.m., guaiac negative in ED, monitor for bleeding, IV Protonix q.day Hypertensive urgency, acute, with a history essential hypertension present on admission * Continue patient's losartan, amlodipine * Likely secondary to patient's pain and hypovolemia. * Ordered Mag, troponin, BNP, EKG Diarrhea, acute, secondary to medication induced, present on admission * X4 days dark and tarry stools likely secondary to patient's iron supplement & GoLYTELY * Loperamide as needed following stool max 16 mg/q.day * Gentle rehydration * C diff/H pylori-recent antibiotic use Type 2 diabetes, chronic, with hyperlipidemia present on admission * Glucose 70 on admit * Unclear if patient is taking insulin per the patient's medical records from [facility] * Admitted on diabetic protocol, glucose checks a.c. HS, ordered A1c, low-dose sliding scale * Will hold metformin * Continue statin Dementia, chronic, present on admission * Patient confused orientated to self and daughter, she is reported to be at baseline per daughter. * Daughter states patient takes nothing for her dementia * Ordered Seroquel 25 mg q.h.s. daughter agreed to plan of care. GERD, chronic, present on admission * Holding oral omeprazole, IV Protonix daily in case a GI bleed Microcytic anemia, chronic, present on admission * HGB 9.2/HCT 26.3, MCV 102.2, MCH 35.9, based on review of previous labs patient is at baseline & stable * Holding iron supplementation at this time * Will trend coag studies Code status:DNR Surrogate decision maker: Daughter Kristen RIOS PCR:Negative DVT/VTE prophylaxis: No medication due to possible GI bleed, microcytic anemia, SCDs only Disposition: Patient admitted for observation to resolve moderate hyponatremia and diarrhea, expected length of stay not to exceed 2 midnights. I have utilized all available immediate resources to obtain, update, or review the patient's current medications. I confirmed that the patient's advanced care plan is present, Code status is documented and/or surrogate decision maker is listed in the patient's medical record. I have personally reviewed patient's chart notes from PCP, specialists, diagnostic imaging, and laboratory results.
[2022-10-09] MEDS: SODIUM CHLORIDE 0.9% 1,000 ML 80 ML IV (22:00)
[2022-10-09] MEDS: PANTOPRAZOLE 40 MG VIAL IV (22:00)
[2022-10-09 22:42] LABS: Hematocrit 26.4 % (36-46); Hemoglobin 9.2 g/dL (12.0-16.0)
[2022-10-09] MEDS: ACETAMINOPHEN 325 MG TABLET 650 MG PO (22:49)
[2022-10-09] MEDS: OXYCODONE IR 5 MG TABLET PO (22:50)
[2022-10-09 22:53] LABS: Alanine Aminotransferase 17 IU/L (<35); Albumin 3.6 g/dL (3.5-5.0); Alkaline Phosphatase 78 U/L (38-126); Aspartate Aminotransferase 34 IU/L (14-36); BUN Creatinine Ratio 9.9 (6-22); Bilirubin Total < 0.1 mg/dL (0.2-1.3); Blood Urea Nitrogen 9 mg/dL (7-17); Calcium 8.4 mg/dL (8.4-10.2); Carbon Dioxide 19 mmol/L (22-32); Chloride 91 mmol/L (98-107); Estimated Glomerular Filt Rate > 60 mL/min (>60); Globulin 3.5 g/dL (1.7-4.1); Glucose 90 mg/dL (80-110); HEMOLYSIS < 15 (0-50); Magnesium 1.6 mg/dL (1.6-2.3); Potassium 4.6 mmol/L (3.4-5.1); Total Protein 7.1 g/dL (6.3-8.2)
[2022-10-09 22:54] LABS: Sodium 119 mmol/L (137-145)
[2022-10-09 23:02] LABS: NT-proBNP (BNP-Adult 18+) 524 pg/mL (<450)
[2022-10-09 23:04] LABS: Troponin I < 0.012 ng/mL (0.01-0.034)
[2022-10-09 23:12] LABS: Sodium Urine Random 71 mmol/L (30-90)
[2022-10-09 23:24] LABS: TSH w/ Reflex to FT4 6.76 uIU/mL (0.47-4.68)
[2022-10-09] MEDS: QUETIAPINE 25 MG TABLET PO (23:47)
[2022-10-09 23:54] LABS: Free T4, Direct Thyroxine 1.35 ng/dL (0.78-2.19)
[2022-10-10] VITALS: BP 156/71; PULSE 89; RESP 18; TEMP 36.2; O2SAT 96
[2022-10-10] MEDS: OXYCODONE IR 5 MG TABLET PO ×5 (01:56→23:59)
[2022-10-10 04:00] VITALS: BP 135/64; PULSE 78; RESP 19; TEMP 36.4; O2SAT 97
[2022-10-10 04:49] LABS: Add Manual Diff / Slide Review NO; Basophils Absolute Auto 0 /uL (0-100); Basophils Percent Auto 0.5 % (0-2); Eosinophils Absolute Auto 0 /uL (0-450); Eosinophils Percent Auto 0.8 % (2-4); Hematocrit 27.9 % (36-46); Hemoglobin 9.7 g/dL (12.0-16.0); Lymphocytes Absolute Auto 1600 /uL (1100-4500); Lymphocytes Percent Auto 26.8 % (25-40); Mean Corpuscular HGB Conc 34.8 % (30-36); Mean Corpuscular Hemoglobin 35.4 PG (26-34); Mean Corpuscular Volume 101.7 fL (80-100); Monocytes Absolute Auto 500 /uL (0-900); Monocytes Percent Auto 8.6 % (3-14); Neutrophils Absolute Auto 3700 /uL (1500-7000); Neutrophils Percent Auto 63.3 % (50-75); Platelet Count 313 X10^3/uL (150-400); Red Blood Cell Count 2.74 X10^6/uL (4.0-5.2); White Blood Cell Count 5.8 X10^3/uL (4.5-11.0)
[2022-10-10 05:02] LABS: Alanine Aminotransferase 19 IU/L (<35); Albumin 3.8 g/dL (3.5-5.0); Albumin Globulin Ratio 1.1 (1.0-2.8); Alkaline Phosphatase 78 U/L (38-126); Aspartate Aminotransferase 33 IU/L (14-36); BUN Creatinine Ratio 8.9 (6-22); Bilirubin Total 0.2 mg/dL (0.2-1.3); Blood Urea Nitrogen 8 mg/dL (7-17); Calcium 8.5 mg/dL (8.4-10.2); Carbon Dioxide 21 mmol/L (22-32); Chloride 92 mmol/L (98-107); Estimated Glomerular Filt Rate > 60 mL/min (>60); Globulin 3.6 g/dL (1.7-4.1); Glucose 92 mg/dL (80-110); HEMOLYSIS < 15 (0-50); Potassium 4.4 mmol/L (3.4-5.1); Sodium 123 mmol/L (137-145); Total Protein 7.4 g/dL (6.3-8.2)
[2022-10-10 05:50] LABS: MRSA (Nasal) PCR Not Detected (Not Detect)
[2022-10-10] MEDS: LEVOTHYROXINE 50 MCG TABLET PO (06:07)
--- NOTE | 2022-10-10 06:22 | PC.NURSE ---
Received patient from ED in no distress. Patient only oriented to self and place when arrived in room. According to family patient become more confused as the night progresses, then improves during the day. Patient medicated for pain as needed upper abdomen with adequate results.
[2022-10-10 08:05] VITALS: BP 151/63; PULSE 60; RESP 16; TEMP 36.4; O2SAT 94
[2022-10-10] MEDS: PANTOPRAZOLE 40 MG VIAL 20 MG IV (08:17)
[2022-10-10 08:18] VITALS: BP 151/63; PULSE 60
[2022-10-10] MEDS: LOSARTAN 25 MG TABLET 50 MG PO (08:18)
[2022-10-10] MEDS: GABAPENTIN 300 MG CAPSULE PO ×2 (08:18→20:52)
--- NOTE | 2022-10-10 09:41 | OT.IP.EVAL ---
Past Medical History (Last Reviewed 10/09/22 @ 21:17 by Virgie Deras [facility]) Dementia GERD (gastroesophageal reflux disease) History of diabetes mellitus, type II Hyperlipidemia Hypertension Hypothyroidism Microcytic anemia Osteoporosis Surgical History (Last Reviewed 10/09/22 @ 21:17 by Virgie Deras [facility]) History of hysterectomy Occupational Therapy Inpatient Evaluation/Re-Eval M1 PT/OT-IP Prior Functional Status Start: 10/10/22 10:35 Freq: NEEDED Status: Active Protocol: Document 10/10/22 10:35 CGR (Rec: 10/10/22 11:15 CGR [id number]) Medical Review Prior Functional Status Medical History Reviewed Yes Communication Pt is an effective verbal communicator but is MODOC. Mobility and Gait Pt ambulated at baseline without AD per patient. Pt is a questionable historian. Activities of Daily Living and IADL's Pt lives in [facility]. Per nursing staff, the patient gets reminders and assist with medications. The facility does laundry and the patient goes to the dining room for meals. Pt's daughter takes her to appointments. Social History Living Arrangements [facility] Facility Number of Floors (Floors) One Floor Number of Stairs To Enter/Railing? no stairs Home Environment High Toilet,Walk in Shower Home Equipment Four Wheel Walker,Hand Held Shower,Grab Bars Near Toilet, Grab Bars In Shower Employment Status Retired Additional Social History Comment Pt has a flat bed M2 OT-IP Current Condition Start: 10/10/22 10:35 Freq: Status: Active Protocol: Document 10/10/22 10:35 CGR (Rec: 10/10/22 11:15 CGR [id number]) Occupational Therapy Current Condition Current Condition Evaluation Date 10/10/22 Treatment Diagnosis HTN urgency, dark tarry stools . Diagnosis Onset Date 10/09/22 M3 OT- IP Subjective and Pain Start: 10/10/22 10:35 Freq: Status: Active Protocol: Document 10/10/22 10:35 CGR (Rec: 10/10/22 11:15 CGR [id number]) OT- Subjective Occupational Therapy Visit Type Type Initial Evaluation Visit Start Time 09:24 Visit Stop Time 09:41 Total Visit Minutes 17 Occupational Therapy Visit Comments Patient Comments My stomach just really hurts. OT Pain Assessment Pain When Pain Assessed At Rest Pain Present Pain Present Pain Reported Location Abdomen Scale Used did not rate Pain Behaviors Facial Grimacing,Guarding, Holding Area,Moaning Management Techniques Modification of Treatment,Re- positioning M4 OT- IP ADL's Start: 10/10/22 10:35 Freq: Status: Active Protocol: Document 10/10/22 10:35 CGR (Rec: 10/10/22 11:15 CGR [id number]) OT CAA-Iqli-Gzroiqu General Evaluation Self-Feeding Ability Independent Comments OT Self-Feeding Comments breakfast OT ADL-Grooming Comments OT Grooming Comments Pt declined to perform OT ADL-Oral Care Comments Oral Care Comments Pt declined to perform OT ADL-Dressing Comments OT Dressing Comments Pt declined to perform OT ADL-Toileting General Evaluation Toileting Ability Standby Assistance Comments OT Toileting Comments Pt attempted to urinate seated on toilet. OT ADL-Bathing Comments OT Bathing Comments not performed M5 OT- IP IADL's Start: 10/10/22 10:35 Freq: Status: Active Protocol: Document 10/10/22 10:35 CGR (Rec: 10/10/22 11:15 CGR [id number]) OT-Instrumental Activities of Daily Living Deficits IADL Deficits Identified Deficits Home Safety Awareness Awareness of Need for Assistance at Home Decreased Awareness Ability to Problem Solve Emergency Unable to Problem Solve Situations Medication Management Medication Management Caregiver Administers Money Management Money Management Caregiver Provides Assistance Meal Preparation Meal Preparation Caregiver Provides Assist Labor Relations Supervisor Labor Relations Supervisor Caregiver Provides Assist Driving Driving Comments Pt does not drive at baseline. M6 OT- IP Functional Cognition Start: 10/10/22 10:35 Freq: Status: Active Protocol: Document 10/10/22 10:35 CGR (Rec: 10/10/22 11:15 CGR [id number]) Cognitive Factors Limiting Selfcare Function Cognitive Ability Level of Alertness Alert Patient Orientation Name,Month,Place Attention Span Ability Capable of Focused Attention, Unable to Sustain Attention Ability to Follow Commands Able to Follow One Step Commands with Increased Time, Able to Follow One Step Commands with Repetition Cognitive Comments Cognitive Assessment Comments Pt would benefit from a formal cog assessment. OT- Vision and Hearing OT- Hearing Assessment OT- Hearing Assessment Hearing Impaired OT- Vision Assessment Visual Acuity WFL Visual Attentiveness WFL Occular Pursuits WFL Visual Convergence WFL M7 OT- IP Mobility and Balance Start: 10/10/22 10:35 Freq: Status: Active Protocol: Document 10/10/22 10:35 CGR (Rec: 10/10/22 11:15 CGR [id number]) OT- Bed Mobility Assessment Rolling Type of Rolling Roll to Right Level of Assistance Independent Supine to Sit Supine to Sit Assist Independent Scooting Scooting to Edge of Bed Independent OT-Transfer Assessment Sit to and From Stand Sit to and from Stand Standby Assistance Transfers Transfer Ability Standby Assistance Technique Transfer Destination Bed,Chair,Toilet Transfer Technique Stand Step Pivot Devices Transfer Assistive Devices Gait Belt,Front Wheeled Walker Comments Mobility Comments Pt requesting to get up to the toilet. Pt then ambulated to the chair. OT- Gait Assessment Gait Gait Assistance Required: Standby Assistance Assistive Devices Assistive Device Gait Belt,Front Wheeled Walker Comments Gait Ability Comments Mobility around room. OT- Balance Assessment Sitting Balance and Reactions Static Sitting Balance Ability Normal Dynamic Sitting Balance Ability Good M8 OT- IP Objective Assessments Start: 10/10/22 10:35 Freq: Status: Active Protocol: Document 10/10/22 10:35 CGR (Rec: 10/10/22 11:15 CGR [id number]) OT Gross Range of Motion Upper Extremity Range of Motion Assessment Within Functional Limits OT Strength Upper Extremity Strength Assessment Within Functional Limits Comments Strength Comments shoulders 4-/5, arms and hands 4/5 OT- Coordination Assessment Upper Extremity Finger to Nose Test Within Functional Limits Finger Tapping Test Within Functional Limits OT-Muscle Tone Assessment Muscle Tone WNL Yes OT Sensation Assessment Edema Edema Absent M9 OT- IP Assessment and Plan Start: 10/10/22 10:35 Freq: Status: Active Protocol: Document 10/10/22 10:35 CGR (Rec: 10/10/22 11:15 CGR [id number]) OT Summary Assessment and Plan Potential Rehabilitation Potential Excellent Analytic Complexity at Evaluation Low Summary OT Impairments Pain,Balance,Functional Cognition,Functional Mobility, Dressing,Bathing,Activity Tolerance Progress Towards Goals Progressing Toward Goals Assessment Summary Pt presents as a low complexity evaluation s/p admit for abdominal pain, HTN urgency and dark tarry stools. Pt has a hx of dementia. Pt participated with therapy well and appear to be at her baseline. Further assessment for cognition, dressing and bathing is indicated prior to discharge but pt appears to be at her baseline. Recommend plan to return to [facility]. Goals Grooming Goal Independent Dressing Goal Independent Bathing Goal Independent Shower Transfer Goal Independent Days to Meet Goals 2 Frequency of Treatment Frequency Of Treatment Once a Day Treatment Plan OT Treatment Plan ADL Training,Functional Cognition Training,Functional Mobility,Patient/Family Education,Discharge Planning Other Treatment Recommendations and Next cog assessment, shower, and Treatment Focus dressing. Discharge Recommendations OT Discharge Recommendations Home Other Discharge Recommendations Pt lives at [facility] and appears to be at her baseline. Transportation Needs at Discharge Private Vehicle
[2022-10-10] MEDS: SODIUM CHLORIDE 0.9% 1,000 ML 80 ML IV (10:01)
--- NOTE | 2022-10-10 12:03 | P.PN_ITS ---
Subjective Subjective Interval history: More information was obtained about the patient's regular medications and these were added and ordered. Patient complaining of headache. Earlier was complaining of pain that was in her abdomen and up to her head areas well. Specific clarity of the pain is difficult to obtain from the patient due to her dementia. No problems with diarrhea or intestinal cramping. Exam Vital Signs (past 8 hours): - 10/10/22 08:18 10/10/22 08:05 Temperature 97.6 F Pulse Rate 60 60 Respiratory Rate 16 Blood Pressure 151/63 H 151/63 H Pulse Oximetry 94 Oxygen Flow Rate 0 Oxygen Delivery Method Room Air Oxygen Flow Rate 0 Narrative Exam Narrative: General:? Patient is a well-developed, well-nourished pleasantly confused elderly female who is restless and agitated in the bed intermittently. HEENT:? Normocephalic, atraumatic, extraocular muscles intact, trachea is midline. Lungs:? Auscultation of all lung avila are clear without wheezes or crackles. Cardio:? regular rate and rhythm without extra sounds or murmurs. Abdomen:? Soft nontender, negative for organomegaly, or masses.? Bowel sounds are present. Musculoskeletal:? Muscle strength and tone are equal within normal limits. Skin:? Warm dry and intact without rashes or lesions. Neuro:? Alert and orientated to self & daughter only, normal sensation of all extremities. Psych:? Patient has a well-kept appearance, pleasant affect, and confused secondary to dementia. Objective Labs 10/10/22 04:30 10/10/22 04:30 Labs: Laboratory Results - last 24 hr 10/09/22 10/09/22 10/09/22 17:25 17:30 18:00 WBC 7.6 RBC 2.58 L Hgb 9.2 L Hct 26.3 L MCV 102.2 H MCH 35.9 H MCHC 35.1 RDW 14.8 Plt Count 343 Neut % (Auto) 76.1 H Lymph % (Auto) 14.9 L [place] % (Auto) 8.1 Eos % (Auto) 0.6 L Baso % (Auto) 0.3 Neut # (Auto) 5800 Lymph # (Auto) 1100 [place] # (Auto) 600 Eos # (Auto) 0 Baso # (Auto) 0 PT INR APTT Sodium 120 L Potassium 4.7 Chloride 89 L Carbon Dioxide 21 L BUN 11 Creatinine 0.96 Estimated GFR 58 L BUN/Creatinine Ratio 11.5 Glucose 105 Calcium 8.5 Magnesium Total Bilirubin 0.3 AST 30 ALT 17 Alkaline Phosphatase 81 Troponin I NT-Pro-B Natriuret Pep Total Protein 7.4 Albumin 3.8 Globulin 3.6 Albumin/Globulin Ratio 1.1 Lipase 134 TSH Free T4 Ur Random Sodium Nasal Screen MRSA (PCR) Blood Type O Negative Antibody Screen Negative 10/09/22 10/09/22 10/09/22 18:00 18:00 22:15 WBC RBC Hgb Hct MCV MCH MCHC RDW Plt Count Neut % (Auto) Lymph % (Auto) [place] % (Auto) Eos % (Auto) Baso % (Auto) Neut # (Auto) Lymph # (Auto) [place] # (Auto) Eos # (Auto) Baso # (Auto) PT 12.2 INR 1.1 APTT 28 Sodium Potassium Chloride Carbon Dioxide BUN Creatinine Estimated GFR BUN/Creatinine Ratio Glucose Calcium Magnesium Total Bilirubin AST ALT Alkaline Phosphatase Troponin I NT-Pro-B Natriuret Pep 524 H Total Protein Albumin Globulin Albumin/Globulin Ratio Lipase TSH 4.37 Free T4 Ur Random Sodium Nasal Screen MRSA (PCR) Blood Type Antibody Screen 10/09/22 10/09/22 10/09/22 22:15 22:15 22:15 WBC RBC Hgb 9.2 L Hct 26.4 L MCV MCH MCHC RDW Plt Count Neut % (Auto) Lymph % (Auto) [place] % (Auto) Eos % (Auto) Baso % (Auto) Neut # (Auto) Lymph # (Auto) [place] # (Auto) Eos # (Auto) Baso # (Auto) PT INR APTT Sodium Potassium Chloride Carbon Dioxide BUN Creatinine Estimated GFR BUN/Creatinine Ratio Glucose Calcium Magnesium 1.6 Total Bilirubin AST ALT Alkaline Phosphatase Troponin I < 0.012 NT-Pro-B Natriuret Pep Total Protein Albumin Globulin Albumin/Globulin Ratio Lipase TSH 6.76 H Free T4 1.35 Ur Random Sodium Nasal Screen MRSA (PCR) Blood Type Antibody Screen 10/09/22 10/09/22 10/10/22 22:15 22:59 04:15 WBC RBC Hgb Hct MCV MCH MCHC RDW Plt Count Neut % (Auto) Lymph % (Auto) [place] % (Auto) Eos % (Auto) Baso % (Auto) Neut # (Auto) Lymph # (Auto) [place] # (Auto) Eos # (Auto) Baso # (Auto) PT INR APTT Sodium 119 L* Potassium 4.6 Chloride 91 L Carbon Dioxide 19 L BUN 9 Creatinine 0.91 Estimated GFR > 60 BUN/Creatinine Ratio 9.9 Glucose 90 Calcium 8.4 Magnesium Total Bilirubin < 0.1 L AST 34 ALT 17 Alkaline Phosphatase 78 Troponin I NT-Pro-B Natriuret Pep Total Protein 7.1 Albumin 3.6 Globulin 3.5 Albumin/Globulin Ratio 1.0 Lipase TSH Free T4 Ur Random Sodium 71 Nasal Screen MRSA (PCR) Not detected Blood Type Antibody Screen 10/10/22 10/10/22 04:30 04:30 WBC 5.8 RBC 2.74 L Hgb 9.7 L Hct 27.9 L MCV 101.7 H MCH 35.4 H MCHC 34.8 RDW 15.0 H Plt Count 313 Neut % (Auto) 63.3 Lymph % (Auto) 26.8 [place] % (Auto) 8.6 Eos % (Auto) 0.8 L Baso % (Auto) 0.5 Neut # (Auto) 3700 Lymph # (Auto) 1600 [place] # (Auto) 500 Eos # (Auto) 0 Baso # (Auto) 0 PT INR APTT Sodium 123 L Potassium 4.4 Chloride 92 L Carbon Dioxide 21 L BUN 8 Creatinine 0.90 Estimated GFR > 60 BUN/Creatinine Ratio 8.9 Glucose 92 Calcium 8.5 Magnesium Total Bilirubin 0.2 AST 33 ALT 19 Alkaline Phosphatase 78 Troponin I NT-Pro-B Natriuret Pep Total Protein 7.4 Albumin 3.8 Globulin 3.6 Albumin/Globulin Ratio 1.1 Lipase TSH Free T4 Ur Random Sodium Nasal Screen MRSA (PCR) Blood Type Antibody Screen [facility] Medical History Dementia GERD (gastroesophageal reflux disease) History of diabetes mellitus, type II Hyperlipidemia Hypertension Hypothyroidism Microcytic anemia Osteoporosis Surgical History History of hysterectomy Family History (Updated 10/09/22 @ 22:49 by TESHA Garner) Father No problems noted. Mother No problems noted. Social History Smoking Status: Never smoker Assessment & Plan Assessment & Plan narrative: Abdominal pain, right upper quadrant, with radiation to back, acute, present on admission Has settled today * Diarrhea x4 days * Suspect abdominal pain is secondary to the use of GoLYTELY resulting in sign ificant gas and diarrhea over the past 4 days. * R/O GI bleed -not occurring. * ABD CT:Gaseous prominence of the colon can be seen, with loops measuring up to 5 cm, ABD U/S:enlarged GB, liquid stool observed throughout the entire colon. * Dr. Blanc to consult General surgery -discuss with Dr. Blanc personally and no need for consult based on her review of scans,.Enlarged gallbladder within normal limits and gas in colon nonsurgical related to GoLYTELY. * CXR:? Possible pulmonary edema. Patient's spironolactone reinitiated. * Pain management, * Gentle fluid hydration NS at 80 cc/HR overnight, will continue for purposes of increasing sodium * Monitor for GI bleed, ED guaiac negative -no GI bleeding. * Repeat H&H, trend daily Moderate hyponatremia secondary to gastrointestinal loss, acute, present on admission * Likely secondary to gastrointestinal loss from diarrhea * ?Goal to increase serum sodium initially by no more than 4-6 mEq during the 1st 24 hours to prevent the risk of osmotic demyelination syndrome, sodium at 24 hours goal 126, but no greater than 130.? If greater than 130 start D5W infusion to lower to an appropriate amount. If? worsens with saline, likely SIADH start fluid restriction, consider salt tablets and diuretics. Sodium 123 today. Continue IV normal saline. * Repeat CMP at 10:00 p.m., trend daily * Ordered serum osmolality, urine osmolality, urine sodium, UA * Seizure precautions * Reported loose stools-diarrhea:? Ordered loperamide 4 mg after 1st loose so may repeat 2 mg after every loose stool with a max of 16 mg q.day * Possible GI bleed, repeat H&H at 10:00 p.m., guaiac negative in ED, monitor for bleeding, IV Protonix q.day -appears to have no GI bleed. Hypertensive urgency, acute, with a history essential hypertension present on admission * Continue patient's losartan, amlodipine * Likely secondary to patient's pain and hypovolemia. * Ordered Mag, troponin, BNP, EKG * Patient's blood pressure medications have been reinitiated. Diarrhea, acute, secondary to medication induced, present on admission * X4 days dark and tarry stools likely secondary to patient's iron supplement & GoLYTELY -not related to any GI bleed. * Loperamide as needed following stool max 16 mg/q.day * Gentle rehydration Type 2 diabetes, chronic, with hyperlipidemia present on admission * Glucose 70 on admit * Patient's medications reintroduced. * Admitted on diabetic protocol, glucose checks a.c. HS, ordered A1c, low-dose sliding scale * Continue statin * Dementia, chronic, present on admission * Patient confused orientated to self and daughter, she is reported to be at baseline per daughter. * Daughter states patient takes nothing for her dementia * Ordered Seroquel 25 mg q.h.s. daughter agreed to plan of care. Discussed with patient's daughter and this will be continued and likely continued on discharge as well. It was of great benefit for the patient last evening/night * GERD, chronic, present on admission * Holding oral omeprazole, IV Protonix daily in case a GI bleed -no GI bleed and can transitioned to oral omeprazole. Macrocytic anemia, chronic, present on admission, * HGB 9.2/HCT 26.3, MCV 102.2, MCH 35.9, based on review of previous labs patient is at baseline & stable * Holding iron supplementation at this time * coag studies normal * Assess vitamin B12 level Code status:DNR Surrogate decision maker:? Daughter Kristen RIOS PCR:Negative DVT/VTE prophylaxis: Enoxaparin. Quality VTE Deep Vein Thrombosis/Pulmonary Embolism Present on Admission: Yes
[2022-10-10 12:21] LABS: Vitamin B12 639 pg/mL (239-931)
[2022-10-10] MEDS: INSULIN LISPRO 100 UNIT/ML 3ML VIAL SUBCUT ×2 (12:37→16:52)
[2022-10-10] MEDS: AMLODIPINE 5 MG TABLET PO (12:38)
[2022-10-10] MEDS: FLUoxetine 20 MG CAPSULE PO (12:38)
[2022-10-10] MEDS: SPIRONOLACTONE 25 MG TABLET 12.5 MG PO (12:38)
[2022-10-10] MEDS: CHOLECALCIFEROL (VITAMIN D3) 1,000 UNIT TABLET 1000 UNIT PO (12:38)
[2022-10-10] MEDS: MULTIVITAMIN 1 TABLET 1 TAB PO (12:38)
[2022-10-10] MEDS: ENOXAPARIN 40 MG/0.4 ML SYRINGE SUBCUT (12:39)
[2022-10-10] MEDS: KETOROLAC 30 MG/ML VIAL 15 MG IV ×2 (12:40→16:51)
--- NOTE | 2022-10-10 15:36 | CM.DANOTE ---
DCP Assessment: Patient is an 86 yr old female who was admitted due to Anemia and R/O GI Bleed. CM met with patient at the bedside alone with her son Marty. patient was A&O x3 during CM visit and was very cheerful and communicative. Patient when asked who her DPOA is she stated her daughter Kristen Britton phone number [phone] and her son Marty stated it should be him-his phone number is [phone]. however Patient did state she would like her daughter to make medical decisions for her. Patient states she is Independent with all ADLs and patients son Marty agreed with this statement. Patient does have help with medication management, meal prep and daily chores by facility. CM team called [facility] and spoke with Rhea lópez admission coordinator at [facility]. she stated she is happy to have the patient return to the facility at OR. Patients daughter Kristen is going to provide patient with Transportation to [facility] at OR. PCP: Dr Hassan Insurance[facility] Medicare [facility] Plan: Back to [facility] living once medically ready for DC most likely tomorrow 10/11/22- zayda Peterson to provide transport to [facility] at OR. CM team will continue to follow to assist with any new DC planning needs that may arise. Mira Daly RNdoll surgeon Discharge Planning/Care Management CM Discharge Assessment Start: 10/10/22 15:30 Freq: Status: Active Protocol: Document 10/10/22 15:30 HS (Rec: 10/10/22 15:36 HS [id number]) Discharge Planning Assessment Assigned Band Bias Machine Operator Mira Daly RNdoll surgeon DPOA/Assigned Designee Name Zayda Britton Contact Information [phone] Advance Directives? No History Provided By Family Member,Medical Record Prior Living Arrangements Assisted Living Comment Patient lives in [facility] assisted living in [place] Household Members none Comment Lives in [facility] Type of transporation used prior to Relies on Others admit Facility Name Admitted From: Other Willing to Return to Facility? Yes Independent with ADL's Yes Is patient alert and oriented? A&O x3 Needs Assistance With Meal Prep,Managing Medications ,Home Chores / Shopping Caregiver for Another No DME Already Rented / Owned FWW / Walker Comment Son Marty was at bedside and stated that his mother has FWW but doesn't use it on an average basis Barriers to Discharge No Comment DC plan back to [facility] In [place] Discharge Plan Assisted Living Facility Transportation Arrangement Patients Daughter Kristen Britton will provide transportation for her mother at OR back to [facility] Referrals Initiated None needed Medicare Choice List Provided No Whiteboard Updated in Patient Room with Yes name and ext. # of Band Bias Machine Operator Review Status In Process Next Review Type Continued Stay Review
--- NOTE | 2022-10-10 16:41 | PT.IIE ---
Surgical History (Last Reviewed 10/09/22 @ 21:17 by Virgie Deras [facility]) History of hysterectomy Medical History (Last Reviewed 10/09/22 @ 21:17 [facility] Dementia GERD (gastroesophageal reflux disease) History of diabetes mellitus, type II Hyperlipidemia Hypertension Hypothyroidism Microcytic anemia Osteoporosis Physical Therapy Inpatient Evaluation/Re-Eval M1 PT/OT-IP Prior Functional Status Start: 10/10/22 10:35 Freq: NEEDED Status: Active Protocol: Document 10/10/22 16:41 AW (Rec: 10/10/22 17:20 AW [id number]) Medical Review Prior Functional Status Medical History Reviewed Yes Communication Pt is an effective verbal communicator but is [place]. Mobility and Gait Pt ambulated at baseline without AD per patient. Pt is a questionable historian. Activities of Daily Living and IADL's Pt lives in [facility]. Per facility staff, the patient gets reminders and assist with medications. The facility does laundry and the patient goes to the dining room for meals. Pt's daughter takes her to appointments. Social History Household Members none Living Arrangements Assisted Living Number of Floors (Floors) One Floor Number of Stairs To Enter/Railing? No stairs Home Environment High Toilet,Walk in Shower Home Equipment Four Wheel Walker,Straight Cane,Hand Held Shower,Grab Bars Near Toilet,Grab Bars In Shower M1 PT/OT-IP Prior Functional Status Start: 10/10/22 15:48 Freq: NEEDED Status: Active Protocol: Document 10/10/22 16:41 AW (Rec: 10/10/22 17:20 AW [id number]) Medical Review Prior Functional Status Medical History Reviewed Yes Communication Pt is an effective verbal communicator but is [place]. Mobility and Gait Pt ambulated at baseline without AD per patient. Pt is a questionable historian. Activities of Daily Living and IADL's Pt lives in [facility]. Per facility staff, the patient gets reminders and assist with medications. The facility does laundry and the patient goes to the dining room for meals. Pt's daughter takes her to appointments. Social History Household Members none Living Arrangements Assisted Living Number of Floors (Floors) One Floor Number of Stairs To Enter/Railing? No stairs Home Environment High Toilet,Walk in Shower Home Equipment Four Wheel Walker,Straight Cane,Hand Held Shower,Grab Bars Near Toilet,Grab Bars In Shower M2 PT-IP Current Condition Start: 10/10/22 15:48 Freq: NEEDED Status: Active Protocol: Document 10/10/22 16:41 AW (Rec: 10/10/22 17:20 AW [id number]) Physical Therapy Current Condition Current Condition Evaluation Date 10/10/22 Treatment Diagnosis anemia; r/o GI bleed; impaired mobility and gait Onset Date 10/08/22 M3 PT-IP Subjective Start: 10/10/22 15:48 Freq: NEEDED Status: Active Protocol: Document 10/10/22 16:41 AW (Rec: 10/10/22 17:20 AW [id number]) Subjective Physical Therapy Visit Type Type Initial Evaluation Visit Start Time 16:21 Visit Stop Time 16:41 Total Visit Minutes 20 Physical Therapy Visit Comments Patient Comments Pt is willing to participate with PT Patient Goals Return to [facility]. Therapy Pain Assessment Pain When Pain Assessed At Rest Pain Present Pain Present Pain Reported Location Abdomen Scale Used not quantified M4 PT-IP Mobility and Gait Start: 10/10/22 15:48 Freq: NEEDED Status: Active Protocol: Document 10/10/22 16:41 AW (Rec: 10/10/22 17:20 AW [id number]) PT-Bed Mobility Assessment Supine to Sit Supine to Sit Standby Assistance Scooting Scooting to Edge of Bed Standby Assistance PT-Transfer Assessment Sit to and From Stand Sit to and from Stand Standby Assistance,Use of Upper Extremities Equipment Transfer Assistive Device Gait Belt,Front Wheeled Walker Orthotic/Prosthetic Devices or Brace: No Transfers Transfer Destination Chair Transfer Technique Stand Step Pivot Transfer Ability Level of Assist Standby Assistance Comments Mobility Comments Pt was found lying in bed and agreeable to PT assessment. BP 147/66 HR 70 at rest. Pt was able to transition to sitting EOB SBA. She stood and ambulated 150 feet with FWW and SBA. She tended to push the walker too far forward but responded well to cues for proximity to the walker frame. On return to the room, she transferred to the chair and agreed to sit up until dinner. Gait Assessment Gait Gait Assistance Required: Standby Assistance Distance (Feet) 150 Assistive Devices Assistive Device Gait Belt,Front Wheeled Walker Orthotic/Prosthetic Devices or Brace: No Gait Deviations General Gait Pattern Antalgic,Flexed Trunk,Wide Based Gait Factors Limiting Gait Function Factors Limiting Gait Function Decreased Strength,Pain Comments Gait Comments Pt showed good safety awareness, asking to use FWW due to her right sided abdominal pain. Stair Climbing Assessment Comments Stair Climbing Comments Not assessed. No stairs at [facility] . PT-Balance Assessment Sitting Balance and Reactions Static Sitting Balance Ability Good Dynamic Sitting Balance Ability Good Standing Balance and Reactions Static Standing Balance Ability Good Dynamic Standing Balance Ability Good Device Used FWW M5 PT-IP Objective Assessments Start: 10/10/22 15:48 Freq: NEEDED Status: Active Protocol: Document 10/10/22 16:41 AW (Rec: 10/10/22 17:20 AW [id number]) Orientation Orientation/Cognition Level of Alertness Alert Orientation Name,Month,Year,Place, Situation Language Function Ability No Deficits Noted Safety Awareness Understands Safety Issues Memory Description No Deficits Noted Gross Range of Motion Upper Extremity ROM Assessment Within Functional Limits Lower Extremity ROM Assessment Within Functional Limits Strength Upper Extremity Strength Assessment Within Functional Limits Lower Extremity Strength Assessment Within Functional Limits Hip 4/5 flexion and abduction; 4+/ 5 adduction Knee 4+/5 flex and ext Ankle 4+/5 DF Sensation Assessment Sensation Gross Sensation WNL M6 PT-IP Treatment Start: 10/10/22 15:48 Freq: NEEDED Status: Active Protocol: Document 10/10/22 16:41 AW (Rec: 10/10/22 17:20 AW [id number]) Physical Therapy Treatment Education Education Provided Safety M7 PT-IP Assessment and Plan Start: 10/10/22 15:48 Freq: NEEDED Status: Active Protocol: Document 10/10/22 16:41 AW (Rec: 10/10/22 17:20 AW [id number]) PT Summary Assessment and Plan Potential Rehabilitation Potential Good Status of Condition at Evaluation Evolving Summary Impairments Pain,Strength,Transfers,Gait Assessment Summary Awilda is an 86 yo woman admitted with anemia and hyponatremia, rule out GI bleed. She lives at [facility] and typically ambulates with or without 4WW. CLOF: Pt presents with good BLE strength and demonstrates transfers using FWW and SBA. Gait assessment noted flexed posture possibly related to abdominal pain but no LOB and no other significant gait deviations while using FWW with SBA. Pt is likely mobilizing at or near her baseline but would benefit from acute PT following up once or twice to ensure good mobility progression for return to [facility] at discharge. Goals Bed Mobility Goal Independent Transfer Goal Independent,Four Wheeled Walker Gait Goal Independent,Four Wheel Walker Gait Distance 150 Days to Meet Goals 2 Frequency of Treatment Frequency Of Treatment Once a Day Treatment Plan Physical Therapy Treatment Plan Bed Mobility Training,Transfer Training,Gait Training, Therapeutic Exercise,Balance Retraining,Discharge Planning, Hot or Cold Pack,Neuromuscular Re-ed Other Recommendations and Next Treatment progress transfers and gait Focus with 4WW; assess readiness for d/c from PT caseload Precautions Other Precautions falls risk Recommendations To Nursing Amount of Assist Needed Standby Assistance Discharge Recommendations PT Discharge Recommendations Home with 19/12 Assist Available Transportation Needs at Discharge Private Vehicle
[2022-10-10] MEDS: METFORMIN HCL 500 MG TABLET 1000 MG PO (16:51)
[2022-10-10 17:11] VITALS: BP 138/65; PULSE 63; RESP 18; TEMP 36.6; O2SAT 96
[2022-10-10] MEDS: ACETAMINOPHEN 325 MG TABLET 650 MG PO (17:31)
[2022-10-10 20:00] VITALS: BP 139/63; PULSE 59; RESP 19; TEMP 36.6; O2SAT 97
[2022-10-10] MEDS: ATORVASTATIN 20 MG TABLET PO (20:51)
[2022-10-10] MEDS: QUETIAPINE 25 MG TABLET PO (20:51)
[2022-10-10] MEDS: LORATADINE 10 MG TABLET PO (20:52)
[2022-10-11 04:00] VITALS: BP 129/59; PULSE 83; RESP 19; TEMP 36.2; O2SAT 92
[2022-10-11 04:37] LABS: Add Manual Diff / Slide Review NO; Basophils Absolute Auto 0 /uL (0-100); Basophils Percent Auto 0.4 % (0-2); Eosinophils Absolute Auto 200 /uL (0-450); Eosinophils Percent Auto 4.8 % (2-4); Hematocrit 24.2 % (36-46); Hemoglobin 8.5 g/dL (12.0-16.0); Lymphocytes Absolute Auto 1300 /uL (1100-4500); Lymphocytes Percent Auto 32.3 % (25-40); Mean Corpuscular Hemoglobin 36.2 PG (26-34); Mean Corpuscular Volume 103.4 fL (80-100); Monocytes Absolute Auto 400 /uL (0-900); Neutrophils Absolute Auto 2100 /uL (1500-7000); Neutrophils Percent Auto 52.5 % (50-75); Platelet Count 294 X10^3/uL (150-400); Red Blood Cell Count 2.34 X10^6/uL (4.0-5.2); Red Cell Distribution Width 14.9 % (11.6-14.8)
[2022-10-11 04:53] LABS: Alanine Aminotransferase 18 IU/L (<35); Albumin 3.4 g/dL (3.5-5.0); Alkaline Phosphatase 79 U/L (38-126); Aspartate Aminotransferase 30 IU/L (14-36); BUN Creatinine Ratio 11.8 (6-22); Bilirubin Total 0.2 mg/dL (0.2-1.3); Blood Urea Nitrogen 8 mg/dL (7-17); Calcium 8.3 mg/dL (8.4-10.2); Carbon Dioxide 22 mmol/L (22-32); Chloride 99 mmol/L (98-107); Estimated Glomerular Filt Rate > 60 mL/min (>60); Globulin 3.4 g/dL (1.7-4.1); Glucose 104 mg/dL (80-110); HEMOLYSIS < 15 (0-50); Potassium 4.1 mmol/L (3.4-5.1); Sodium 128 mmol/L (137-145); Total Protein 6.8 g/dL (6.3-8.2)
--- NOTE | 2022-10-11 05:59 | PC.NURSE ---
Patient removing iv, and Dr. Sands notified and agreed to leave IV out. Patient sleeping off and on through the night, only getting up to use the bathroom. Awaiting discharge to previous facility.
[2022-10-11] MEDS: LEVOTHYROXINE 75 MCG TABLET PO (06:36)
[2022-10-11] MEDS: PANTOPRAZOLE DR 20 MG TABLET PO (06:36)
[2022-10-11 08:35] LABS: Labcorp Hemoglobin (Hb) A1c 8.1 % (4.8-5.6)
[2022-10-11 09:25] LABS: COVID19 -Nasal RAPID Negative (Negative)
[2022-10-11 09:29] VITALS: BP 120/58
[2022-10-11] MEDS: METFORMIN HCL 500 MG TABLET 1000 MG PO (09:29)
[2022-10-11] MEDS: AMLODIPINE 5 MG TABLET PO (09:29)
[2022-10-11] MEDS: GABAPENTIN 300 MG CAPSULE PO ×2 (09:29→21:24)
[2022-10-11] MEDS: LOSARTAN 25 MG TABLET 50 MG PO (09:29)
[2022-10-11] MEDS: SIMETHICONE 80 MG TABLET PO (09:30)
[2022-10-11] MEDS: FLUoxetine 20 MG CAPSULE PO (09:30)
[2022-10-11] MEDS: SPIRONOLACTONE 25 MG TABLET 12.5 MG PO (09:30)
[2022-10-11] MEDS: ENOXAPARIN 40 MG/0.4 ML SYRINGE SUBCUT (09:31)
[2022-10-11] MEDS: ACETAMINOPHEN 325 MG TABLET 650 MG PO ×2 (09:31→14:46)
[2022-10-11] MEDS: INSULIN GLARGINE 100 UNIT/ML 3ML PEN 22 UNIT SUBCUT (09:39)
[2022-10-11 11:00] VITALS: BP 120/58; PULSE 72; RESP 20; TEMP 36.8; O2SAT 100
--- NOTE | 2022-10-11 11:33 | OT.IP.TRT ---
Current Diagnoses Hypo-osmolality and hyponatremia (10/09/22) Occupational Therapy Treatment Note M2 OT-IP Current Condition Start: 10/10/22 10:35 Freq: Status: Active Protocol: Document 10/10/22 10:35 CGR (Rec: 10/10/22 11:15 CGR [id number]) Occupational Therapy Current Condition Current Condition Evaluation Date 10/10/22 Treatment Diagnosis HTN urgency, dark tarry stools . Diagnosis Onset Date 10/09/22 M3 OT- IP Subjective and Pain Start: 10/10/22 10:35 Freq: Status: Active Protocol: Document 10/11/22 11:24 AMS (Rec: 10/11/22 11:33 AMS [id number]) OT- Subjective Occupational Therapy Visit Type Type Treatment Note Visit Start Time 10:45 Visit Stop Time 11:02 Total Visit Minutes 17 Occupational Therapy Visit Comments Patient Comments My mind is kind of blank this morning per Awilda w/ SLUMs examination. My abdomen has been hurting this morning. It is bloated. They have been letting me rest. OT Pain Assessment Location Abdomen Description Cramping,Pressure,Tender Pain Behaviors Guarding Management Techniques Distraction,Modification of Treatment M4 OT- IP ADL's Start: 10/10/22 10:35 Freq: Status: Active Protocol: Document 10/10/22 10:35 CGR (Rec: 10/10/22 11:15 CGR [id number]) OT [id number] General Evaluation Self-Feeding Ability Independent Comments OT Self-Feeding Comments breakfast OT ADL-Grooming Comments OT Grooming Comments Pt declined to perform OT ADL-Oral Care Comments Oral Care Comments Pt declined to perform OT ADL-Dressing Comments OT Dressing Comments Pt declined to perform OT ADL-Toileting General Evaluation Toileting Ability Standby Assistance Comments OT Toileting Comments Pt attempted to urinate seated on toilet. OT ADL-Bathing Comments OT Bathing Comments not performed M5 OT- IP IADL's Start: 10/10/22 10:35 Freq: Status: Active Protocol: Document 10/10/22 10:35 CGR (Rec: 10/10/22 11:15 CGR [id number]) OT-Instrumental Activities of Daily Living Deficits IADL Deficits Identified Deficits Home Safety Awareness Awareness of Need for Assistance at Home Decreased Awareness Ability to Problem Solve Emergency Unable to Problem Solve Situations Medication Management Medication Management Caregiver Administers Money Management Money Management Caregiver Provides Assistance Meal Preparation Meal Preparation Caregiver Provides Assist Compensation/Benefits Specialist Compensation/Benefits Specialist Caregiver Provides Assist Driving Driving Comments Pt does not drive at baseline. M6 OT- IP Functional Cognition Start: 10/10/22 10:35 Freq: Status: Active Protocol: Document 10/10/22 10:35 CGR (Rec: 10/10/22 11:15 CGR [id number]) Cognitive Factors Limiting Selfcare Function Cognitive Ability Level of Alertness Alert Patient Orientation Name,Month,Place Attention Span Ability Capable of Focused Attention, Unable to Sustain Attention Ability to Follow Commands Able to Follow One Step Commands with Increased Time, Able to Follow One Step Commands with Repetition Cognitive Comments Cognitive Assessment Comments Pt would benefit from a formal cog assessment. OT- Vision and Hearing OT- Hearing Assessment OT- Hearing Assessment Hearing Impaired OT- Vision Assessment Visual Acuity WFL Visual Attentiveness WFL Occular Pursuits WFL Visual Convergence WFL M7 OT- IP Mobility and Balance Start: 10/10/22 10:35 Freq: Status: Active Protocol: Document 10/10/22 10:35 CGR (Rec: 10/10/22 11:15 CGR [id number]) OT- Bed Mobility Assessment Rolling Type of Rolling Roll to Right Level of Assistance Independent Supine to Sit Supine to Sit Assist Independent Scooting Scooting to Edge of Bed Independent OT-Transfer Assessment Sit to and From Stand Sit to and from Stand Standby Assistance Transfers Transfer Ability Standby Assistance Technique Transfer Destination Bed,Chair,Toilet Transfer Technique Stand Step Pivot Devices Transfer Assistive Devices Gait Belt,Front Wheeled Walker Comments Mobility Comments Pt requesting to get up to the toilet. Pt then ambulated to the chair. OT- Gait Assessment Gait Gait Assistance Required: Standby Assistance Assistive Devices Assistive Device Gait Belt,Front Wheeled Walker Comments Gait Ability Comments Mobility around room. OT- Balance Assessment Sitting Balance and Reactions Static Sitting Balance Ability Normal Dynamic Sitting Balance Ability Good M8 OT- IP Objective Assessments Start: 10/10/22 10:35 Freq: Status: Active Protocol: Document 10/10/22 10:35 CGR (Rec: 10/10/22 11:15 CGR [id number]) OT Gross Range of Motion Upper Extremity Range of Motion Assessment Within Functional Limits OT Strength Upper Extremity Strength Assessment Within Functional Limits Comments Strength Comments shoulders 4-/5, arms and hands 4/5 OT- Coordination Assessment Upper Extremity Finger to Nose Test Within Functional Limits Finger Tapping Test Within Functional Limits OT-Muscle Tone Assessment Muscle Tone WNL Yes OT Sensation Assessment Edema Edema Absent M9 OT- IP Assessment and Plan Start: 10/10/22 10:35 Freq: Status: Active Protocol: Document 10/11/22 11:24 AMS (Rec: 10/11/22 11:33 AMS [id number]) OT Summary Assessment and Plan Summary Assessment Summary Awilda was resting when therapist arrived for treatment; frequent closing of eyes with need for cueing and rubbing of arm to regain attention/alertness on 3 separate occasions in order to participate in and complete standardized testing with clinician. Awilda obtained a score of 11/30 on the SLUMs which suggests that she has dementia; a diagnosis of dementia has been previously documented in her medical history. Awilda was not agreeable to showering, dressing and/or getting up in the chair given c/o of abdominal bloating and discomfort. Request to remain in bed and rest at this time. Recommend reattempting shower and/or dressing to determine at later date to determine if she is at baseline. Goals Grooming Goal Independent Dressing Goal Independent Bathing Goal Independent Shower Transfer Goal Independent Days to Meet Goals 2 Frequency of Treatment Frequency Of Treatment Once a Day Treatment Plan Other Treatment Recommendations and Next Shower and Dressing. Treatment Focus Discharge Recommendations OT Discharge Recommendations Home Other Discharge Recommendations Pt lives at [facility] and appears to be at her baseline. Transportation Needs at Discharge Private Vehicle
[2022-10-11] MEDS: MAG HYDROX/ALUM/SIMETH 30 ML UDC PO (12:37)
[2022-10-11] MEDS: cefTRIAXone 1,000 MG in SODIUM CHLORIDE 0.9% 100 ML 200 MG IV (14:25)
--- NOTE | 2022-10-11 14:53 | CM.DPC ---
DCP Cont: Dr. Mcneal had seen patient, not sure if she is ready for discharge today, was complaining of abdominal pain. RANJANA Mayo, just came in and stated patient did not want to work with him, did not feel well. Will reattempt tomorrow. Daughter was already here with grand daughter. P: DCP to continue to follow. Plan is back to [place], most likely tomorrow. Tonie Guillory RN/Harbormaster
--- NOTE | 2022-10-11 15:01 | PT-IP ANOTE ---
Pt reports she has pain in her abdomen, a headache and pain in her neck, pt refusing to work with PT. Will see tomorrow morning.
[2022-10-11] MEDS: OXYCODONE IR 5 MG TABLET PO ×2 (15:12→20:11)
[2022-10-11 16:00] VITALS: BP 146/60; PULSE 72; RESP 21; TEMP 36.8; O2SAT 98
[2022-10-11] MEDS: HYDROMORPHONE 0.5 MG INJ IV ×2 (16:51→21:24)
--- NOTE | 2022-10-11 17:11 | DI.CT.S_ITS ---
PROCEDURE: CT ABDOMEN PELVIS W CON INDICATIONS: severe flank/abd pain TECHNIQUE: After the administration of oral and intravenous contrast, axial sections were acquired from the lung bases to the pubic symphysis. Coronal and sagittal reformats were performed. For radiation dose reduction, the following was used: automated exposure control, adjustment of mA and/or kV according to patient size. COMPARISON:[facility], CT, CT ABDOMEN PELVIS W CON, 10/09/2022, 19:52. FINDINGS: Image quality: Excellent. Lung bases: Lung bases are clear. Heart size is normal. The coronary arteries have atherosclerotic calcifications. Solid organs: Liver: The liver has no mass or intrahepatic biliary ductal dilatation. The portal vein and hepatic veins are patent. Biliary: The gallbladder is distended with layering opacification. Pancreas: The pancreas has no mass or ductal dilatation. There is no surrounding inflammation. Spleen: Normal size. There are no masses. Adrenals: No hypertrophy or nodules. Kidneys: No obstructive calculus or hydronephrosis. No solid mass. No cystic mass. Peritoneum and bowel: Small hiatal hernia. The stomach is normal. The small bowel has a normal caliber and appearance. The terminal ileum is normal. The large bowel has a normal caliber and appearance. The appendix is normal. No free fluid or air. Nodes and vessels: No retroperitoneal or mesenteric adenopathy by size criteria. Aorta and inferior vena cava are normal in size. Miscellaneous: No abdominal wall mass or hernia. PELVIS: Genitourinary: The bladder has no wall thickening or mass. No bladder calcifications. Status post hysterectomy. Bones: Degenerative changes with no focal abnormality. Compression fracture of T8 of indeterminate age. Left-sided rib fractures are seen. Remote fractures of the left pelvis. Left healed rib fractures. S-shaped scoliosis. IMPRESSION: 1. Gaseous prominence of the colon previously described on 10/09/2022 is unchanged consistent with ileus. 2. Small hiatal hernia. 3. No acute abdominal or pelvic abnormality. Dictated by: Tay Hernandez M.D. on 10/11/2022 at 17:38 Approved by: Tay Hernandez M.D. on 10/11/2022 at 17:45
[2022-10-11 17:53] LABS: Osmolality Urine 332 mOsmol/kg (.)
[2022-10-11 17:53] LABS: Osmolality, Serum 253 mOsmol/kg (280-301)
[2022-10-11] MEDS: INSULIN LISPRO 100 UNIT/ML 3ML VIAL SUBCUT (17:58)
--- NOTE | 2022-10-11 18:58 | P.PN_ITS ---
Subjective Subjective Interval history: Patient not feeling well, noting increased abd pain. Hasn't had a BM in 2 days. Exam Vital Signs (past 8 hours): - 10/11/22 11:00 10/11/22 16:00 Temperature 98.2 F 98.3 F Pulse Rate 72 72 Respiratory Rate 20 21 Blood Pressure 120/58 L 146/60 H Pulse Oximetry 100 98 Oxygen Flow Rate 0 0 Oxygen Delivery Method Room Air Oxygen Flow Rate 0 Narrative Exam Narrative: General:? Patient is a well-developed, appears uncomfortable HEENT:? Normocephalic, atraumatic, extraocular muscles intact, trachea is midline. Lungs:? Auscultation of all lung avila are clear without wheezes or crackles. Cardio:? regular rate and rhythm without extra sounds or murmurs. Abdomen:? Soft diffuse tenderness, negative for organomegaly, or masses.? Bowel sounds are present. Musculoskeletal:? Muscle strength and tone are equal within normal limits. Skin:? Warm dry and intact without rashes or lesions. Neuro:? Alert and orientated to self & daughter only, normal sensation of all extremities. Psych:? Patient has a well-kept appearance, pleasant affect, mild dementia Objective Labs 10/11/22 04:07 10/11/22 04:07 Labs: Laboratory Results - last 24 hr 10/09/22 10/09/22 10/09/22 22:15 22:15 23:56 WBC RBC Hgb Hct MCV MCH MCHC RDW Plt Count Neut % (Auto) Lymph % (Auto) Titus % (Auto) Eos % (Auto) Baso % (Auto) Neut # (Auto) Lymph # (Auto) Titus # (Auto) Eos # (Auto) Baso # (Auto) Sodium Potassium Chloride Carbon Dioxide BUN Creatinine Estimated GFR BUN/Creatinine Ratio Glucose Hgb A1c (Ref Lab) 8.1 H Serum Osmolality 253 L Calcium Total Bilirubin AST ALT Alkaline Phosphatase Total Protein Albumin Globulin Albumin/Globulin Ratio Urine Osmolality 332 SARS-CoV-2 (PCR) 10/11/22 10/11/22 10/11/22 04:07 04:07 08:40 WBC 4.0 L RBC 2.34 L Hgb 8.5 L Hct 24.2 L MCV 103.4 H MCH 36.2 H MCHC 35.0 RDW 14.9 H Plt Count 294 Neut % (Auto) 52.5 Lymph % (Auto) 32.3 Titus % (Auto) 10.0 Eos % (Auto) 4.8 H Baso % (Auto) 0.4 Neut # (Auto) 2100 Lymph # (Auto) 1300 Titus # (Auto) 400 Eos # (Auto) 200 Baso # (Auto) 0 Sodium 128 L Potassium 4.1 Chloride 99 Carbon Dioxide 22 BUN 8 Creatinine 0.68 Estimated GFR > 60 BUN/Creatinine Ratio 11.8 Glucose 104 Hgb A1c (Ref Lab) Serum Osmolality Calcium 8.3 L Total Bilirubin 0.2 AST 30 ALT 18 Alkaline Phosphatase 79 Total Protein 6.8 Albumin 3.4 L Globulin 3.4 Albumin/Globulin Ratio 1.0 Urine Osmolality SARS-CoV-2 (PCR) Negative PFSH Medical History Dementia GERD (gastroesophageal reflux disease) History of diabetes mellitus, type II Hyperlipidemia Hypertension Hypothyroidism Microcytic anemia Osteoporosis Surgical History History of hysterectomy Family History (Updated 10/09/22 @ 22:49 by TESHA Garner) Father No problems noted. Mother No problems noted. Social History household members: none Smoking Status: Never smoker Assessment & Plan Assessment & Plan narrative: Acute ileus, acute, present on admission. * ABD CT:Gaseous prominence of the colon can be seen, with loops measuring up to 5 cm, ABD U/S:enlarged GB, liquid stool observed throughout the entire colon. * Dr. Blanc to consult General surgery -discuss with Dr. Blanc personally and no need for consult based on her review of scans,.Enlarged gallbladder within normal limits and gas in colon nonsurgical related to GoLYTELY. * CXR:? Possible pulmonary edema. Patient's spironolactone reinitiated. * Continued to have abd pain, repeat CT abd showed unchanged bowel gas pattern consistent with ileus * clear liquid diet, hold imodium * Dr. Blanc to see on 10/12 Moderate hyponatremia secondary to gastrointestinal loss, acute, present on admission * Likely secondary to gastrointestinal loss from diarrhea * ?Goal to increase serum sodium initially by no more than 4-6 mEq during the 1st 24 hours to prevent the risk of osmotic demyelination syndrome, sodium at 24 hours goal 126, but no greater than 130.? If greater than 130 start D5W infusion to lower to an appropriate amount. If? worsens with saline, likely SIADH start fluid restriction, consider salt tablets and diuretics. Sodium 123 today. Continue IV normal saline. * Repeat CMP at 10:00 p.m., trend daily * Ordered serum osmolality, urine osmolality, urine sodium, UA * Seizure precautions * improving to 128 with IVF Hypertensive urgency, acute, with a history essential hypertension present on admission * Continue patient's losartan, amlodipine * Likely secondary to patient's pain and hypovolemia. * Ordered Mag, troponin, BNP, EKG * Patient's blood pressure medications have been reinitiated. Diarrhea, acute, secondary to medication induced, present on admission * X4 days dark and tarry stools likely secondary to patient's iron supplement & GoLYTELY -not related to any GI bleed. * Gentle rehydration * now with ileus Type 2 diabetes, chronic, with hyperlipidemia present on admission * Glucose 70 on admit * Patient's medications reintroduced. * Admitted on diabetic protocol, glucose checks a.c. HS, ordered A1c, low-dose sliding scale * Continue statin Dementia, chronic, present on admission * Patient confused orientated to self and daughter, she is reported to be at baseline per daughter. * Daughter states patient takes nothing for her dementia * Ordered Seroquel 25 mg q.h.s. daughter agreed to plan of care. Discussed with patient's daughter and this will be continued and likely continued on dischar ge as well. It was of great benefit for the patient last evening/night GERD, chronic, present on admission * Holding oral omeprazole, IV Protonix daily in case a GI bleed -no GI bleed and can transitioned to oral omeprazole. Macrocytic anemia, chronic, present on admission, * HGB 9.2/HCT 26.3, MCV 102.2, MCH 35.9, based on review of previous labs p atient is at baseline & stable * Holding iron supplementation at this time * coag studies normal * Assess vitamin B12 level Code status:DNR Surrogate decision maker:? Daughter Kristen TAFOYAID PCR:Negative DVT/VTE prophylaxis: Enoxaparin. Dispo: Pending improvement in ileus. Quality VTE Deep Vein Thrombosis/Pulmonary Embolism Present on Admission: Yes
[2022-10-11] MEDS: SODIUM CHLORIDE 0.9% 1,000 ML 75 ML IV (19:02)
[2022-10-11 20:00] VITALS: BP 137/63; PULSE 64; RESP 18; TEMP 36.3; O2SAT 96
[2022-10-11] MEDS: MAGNESIUM SULFATE 2 GM/50 ML PIGGYBACK IV (20:11)
[2022-10-11] MEDS: ATORVASTATIN 20 MG TABLET PO (21:24)
[2022-10-11] MEDS: DEXTROSE 50 % IN WATER 25 GM/50 ML SYRINGE IV (21:24)
[2022-10-11] MEDS: LORATADINE 10 MG TABLET PO (21:24)
[2022-10-11] MEDS: QUETIAPINE 25 MG TABLET PO (21:24)
--- NOTE | 2022-10-11 21:35 | PC.NURSE ---
Addendum entered by Zandra Saavedra R.N. 10/11/22 22:05: repeat accucheck 192. Original Note: 2100 accucheck 54 and patient medicated with D50W, and will repeat accucheck in [address] Sands notified of above and Iv fluids changed to D5W at 50cc/hr.
[2022-10-11] MEDS: DEXTROSE 5% WATER 1,000 ML 50 ML IV (22:49)
[2022-10-12 04:00] VITALS: BP 146/65; PULSE 66; RESP 17; TEMP 36.5; O2SAT 98
[2022-10-12] MEDS: HYDROMORPHONE 0.5 MG INJ IV (04:14)
[2022-10-12 04:54] LABS: Add Manual Diff / Slide Review NO; Basophils Absolute Auto 0 /uL (0-100); Basophils Percent Auto 0.2 % (0-2); Eosinophils Absolute Auto 100 /uL (0-450); Eosinophils Percent Auto 1.9 % (2-4); Hematocrit 25.5 % (36-46); Hemoglobin 8.9 g/dL (12.0-16.0); Lymphocytes Absolute Auto 800 /uL (1100-4500); Lymphocytes Percent Auto 16.4 % (25-40); Mean Corpuscular HGB Conc 34.9 % (30-36); Mean Corpuscular Hemoglobin 36.1 PG (26-34); Mean Corpuscular Volume 103.6 fL (80-100); Monocytes Absolute Auto 400 /uL (0-900); Monocytes Percent Auto 7.9 % (3-14); Neutrophils Absolute Auto 3800 /uL (1500-7000); Neutrophils Percent Auto 73.6 % (50-75); Platelet Count 300 X10^3/uL (150-400); Red Blood Cell Count 2.46 X10^6/uL (4.0-5.2); White Blood Cell Count 5.1 X10^3/uL (4.5-11.0)
[2022-10-12 05:00] LABS: Alanine Aminotransferase 18 IU/L (<35); Albumin 3.5 g/dL (3.5-5.0); Alkaline Phosphatase 81 U/L (38-126); Aspartate Aminotransferase 26 IU/L (14-36); BUN Creatinine Ratio 11.5 (6-22); Bilirubin Total 0.1 mg/dL (0.2-1.3); Blood Urea Nitrogen 7 mg/dL (7-17); Calcium 8.4 mg/dL (8.4-10.2); Carbon Dioxide 24 mmol/L (22-32); Chloride 97 mmol/L (98-107); Estimated Glomerular Filt Rate > 60 mL/min (>60); Globulin 3.5 g/dL (1.7-4.1); Glucose 165 mg/dL (80-110); HEMOLYSIS < 15 (0-50); Potassium 3.9 mmol/L (3.4-5.1); Sodium 127 mmol/L (137-145)
--- NOTE | 2022-10-12 07:53 | DI.ECHO.S_ITS ---
[facility] +---------+ : : [address] [place] [address] : : : : [id number] : : : : Phone: [phone]---------+ Echocardiogram Report + + :Name: DIANA DAVISON Study Date: 10/12/2022 Height: 62 in : :[facility] ReadingLocation: Weight: 153 lb : : Gender: Female BSA: 1.7 m2 : :: 1935 Age: 86 yrs BP: 146/65 mmHg: :Reason For Study: ASSESS EF : :Ordering Physician: HEATHER, : :LISSETH Kramer Performed By: Rosa Boothe : :Referring: LISSETH ROMERO : + + Interpretation Summary The ejection fraction is estimated to be 55-60%. Diastolic parameters suggest probable normal left ventricular diastolic function and normal filling pressures. The right ventricle is normal in size and function. There is mild mitral regurgitation. Pulmonary artery pressures cannot be estimated because of the lack of a measurable TR jet velocity. Procedure: A two-dimensional transthoracic echocardiogram with color flow and Doppler was performed. The study quality was technically adequate. The best imaging was obtained from the apical window. There is no prior echocardiogram noted for this patient. The patient was in sinus rhythm with heart rates between 56-80 bpm during the exam. Left Ventricle: The left ventricle is normal in size and wall thickness. The ejection fraction is estimated to be 55-60%. There is a mild dyssynchronous contraction pattern, consistent with a conduction abnormality. Diastolic parameters suggest probable normal left ventricular diastolic function and normal filling pressures. Right Ventricle: The right ventricle is normal in size and function. Atria: The left atrial size is normal. Right atrial size is normal. There is no Doppler evidence for an interatrial shunt. Mitral Valve: The mitral valve is normal. There is mild mitral regurgitation. Aortic Valve: The aortic valve is mildly calcified. There is mild aortic valve sclerosis. There is no aortic valve stenosis. No aortic regurgitation is present. Tricuspid Valve: The tricuspid valve is normal in structure and function. There is a trace or physiologic amount of tricuspid regurgitation. Pulmonary artery pressures cannot be estimated because of the lack of a measurable TR jet velocity. Pulmonic Valve: The pulmonic valve is not well visualized. Great Vessels: The aortic root is normal size. The ascending aorta could not be visualized. The IVC is of normal diameter and collapses greater than 50% with a sniff. This suggests a low right atrial pressure of 3 mm Hg. Pericardium/ Pleura There is no pericardial effusion. There is no pleural effusion. MMode/2D Measurements & Calculations LVIDd: 5.2 cm LVOT diam: 1.9 cm LVIDs: 4.1 cm Ao root diam: 2.7 cm FS: 21.0 % EPSS: 1.3 cm IVSd: 0.93 cm LVPWd: 0.91 cm LV honeycutt. diameter/BSA (cm/m^2): 3.0 LV sys. diameter/BSA (cm/m^2): 2.4 LA A2 area: 19.3 cm2 RA long axis: 4.5 cm LA A4 area: 14.8 cm2 RA area: 13.0 cm2 LA length (vol): 5.6 cm RA vol: 31.5 ml LA vol: 43.0 ml RA : 18.5 ml/m2 LA vol index: 25.2 ml/m2 IVC diam: 1.5 cm RVD1 (basal): 3.0 cm RVD2 (mid): 3.0 cm TAPSE: 1.7 cm Doppler Measurements & Calculations Ao V2 max: 167.3 cm/sec LVOT Max Amado: 112.5 cm/sec Ao V2 mean: 119.3 cm/sec LV V1 max P.1 mmHg Ao max P.2 mmHg LV V1 VTI: 24.2 cm Ao mean P.4 mmHg WAYNE(I,D): 2.0 cm2 Ao V2 VTI: 35.4 cm WAYNE(V,D): 1.9 cm2 sev ratio: 0.68 WAYNE indexed to BSA (cm^2/m^2): 1.2 MV E max amado: 79.5 cm/sec TR max amado: 167.8 cm/sec MV A max amado: 106.4 cm/sec TR max P.3 mmHg MV E/A: 0.75 PA V2 max: 103.0 cm/sec Med Peak E' Amado: 5.4 cm/sec PA V2 mean: 73.7 cm/sec E/E' med: 14.8 PA mean P.4 mmHg Lat Peak E' Amado: 7.3 cm/sec E/E' lat: 10.9 E/e' average: 12.8 MV dec time: 0.30 sec SVLVOT): 69.9 ml Reading Physician:12:27 PM
--- NOTE | 2022-10-12 08:54 | OT.IPNOTE ---
Therapist attempted treatment at 8:45 a.m. Awilda was not agreeable to treatment at this time; she stated that she would try at a later time.
[2022-10-12] MEDS: LEVOTHYROXINE 75 MCG TABLET PO (10:17)
[2022-10-12] MEDS: PANTOPRAZOLE DR 20 MG TABLET PO (10:17)
[2022-10-12] MEDS: MAG HYDROX/ALUM/SIMETH 30 ML UDC PO ×2 (10:17→18:29)
[2022-10-12] MEDS: ACETAMINOPHEN 325 MG TABLET 650 MG PO ×2 (10:18→16:43)
[2022-10-12] MEDS: AMLODIPINE 5 MG TABLET PO (10:26)
[2022-10-12] MEDS: LOSARTAN 25 MG TABLET 50 MG PO (10:26)
[2022-10-12] MEDS: ENOXAPARIN 40 MG/0.4 ML SYRINGE SUBCUT (10:26)
[2022-10-12] MEDS: FLUoxetine 20 MG CAPSULE PO (10:27)
[2022-10-12] MEDS: GABAPENTIN 300 MG CAPSULE PO ×2 (10:27→21:04)
[2022-10-12] MEDS: SPIRONOLACTONE 25 MG TABLET 12.5 MG PO (10:28)
--- NOTE | 2022-10-12 10:53 | P.CONS_ITS ---
History of Present Illness Consult details Date Patient Seen: 10/12/22 Time Patient Seen: 10:53 Chief complaint: Abd pain LUQ Reason for consult: severe abdominal pain preventing discharge Requesting provider: Alon Mcneal Narrative: Patient seen in ED several days ago for abdominal pain and sent home with a maryjane l prep that produced liquid stool. Pain persisted and she returned to ED. I reviewed personally the CT scan and US on admission and the CT scan from yesterday when the pain did not improved. No radiologic diagnosis forthcoming except colonic gas and possible ileus. She did have severe electrolyte imbalance that is acute and chronic that is improving. Meds Home Medications and Allergies Home Medications Medication Instructions Recorded Confirmed Type fluoxetine 20 mg capsule 20 mg PO QDAY ##0 01/26/17 10/10/22 History gabapentin 300 mg capsule 300 mg PO BID ##0 01/26/17 10/10/22 History (Neurontin) insulin aspar prot-insulin aspart See Rx Instructions .Route 01/26/17 10/10/22 History 100 unit/mL (70-30) subcutaneous .COMPLEX ##0 pen (Novolog Mix 70-30FlexPen U-100) metformin 1,000 mg tablet,extended 1,000 mg PO BID ##0 01/26/17 10/09/22 History release 24hr spironolactone 25 mg tablet 25 mg QDAY ##0 01/26/17 10/10/22 History insulin degludec 100 unit/mL (3 22 unit SUBCUT DAILY 08/02/21 10/10/22 History mL) subcutaneous pen (Tresiba FlexTouch U-100 insulin) ketoconazole 2 % topical cream 1 applic topical DAILY PRN Rash 08/02/21 10/10/22 History loratadine 10 mg tablet (Allergy 10 mg PO DAILY 08/02/21 10/10/22 History Relief (loratadine)) losartan 25 mg tablet 50 mg PO DAILY #0 tabs 08/02/21 10/09/22 History rosuvastatin 10 mg tablet 10 mg PO DAILY 08/02/21 10/10/22 History triamcinolone acetonide 0.1 % 1 applic topical DAILY PRN Rash 08/02/21 10/10/22 History topical cream Allergies Allergy/AdvReac Type Severity Reaction Status Date / Time ALONDRA Inhibitors Allergy Verified 10/09/22 17:27 ciprofloxacin Allergy Verified 10/09/22 17:27 Review of Systems Review of Systems ROS: Yes unobtainable due to mental condition Exam Vital Signs (past 8 hours): - 10/12/22 04:00 Temperature 97.7 F Pulse Rate 66 Respiratory Rate 17 Blood Pressure 146/65 H Pulse Oximetry 98 Oxygen Delivery Method Room Air Oxygen Flow Rate 0 Narrative Exam Narrative: sleeping soundly, curled on her right side. Const General: frail appearing HENMT Head: normocephalic and atraumatic Ears: hearing grossly impaired Neck Neck: trachea midline Resp Effort & Inspection: normal respiratory effort Cardio Rate: regular rate Rhythm: abnormal rhythm GI Palpation: soft Other: mild distended. Objective Labs 10/12/22 04:15 10/12/22 04:15 Labs: Laboratory Results - last 24 hr 10/09/22 10/09/22 10/12/22 22:15 23:56 04:15 WBC 5.1 RBC 2.46 L Hgb 8.9 L Hct 25.5 L MCV 103.6 H MCH 36.1 H MCHC 34.9 RDW 15.0 H Plt Count 300 Neut % (Auto) 73.6 D Lymph % (Auto) 16.4 L [place] % (Auto) 7.9 Eos % (Auto) 1.9 L Baso % (Auto) 0.2 Neut # (Auto) 3800 Lymph # (Auto) 800 L [place] # (Auto) 400 Eos # (Auto) 100 Baso # (Auto) 0 Sodium Potassium Chloride Carbon Dioxide BUN Creatinine Estimated GFR BUN/Creatinine Ratio Glucose Serum Osmolality 253 L Calcium Total Bilirubin AST ALT Alkaline Phosphatase Total Protein Albumin Globulin Albumin/Globulin Ratio Urine Osmolality 332 10/12/22 04:15 WBC RBC Hgb Hct MCV MCH MCHC RDW Plt Count Neut % (Auto) Lymph % (Auto) [place] % (Auto) Eos % (Auto) Baso % (Auto) Neut # (Auto) Lymph # (Auto) [place] # (Auto) Eos # (Auto) Baso # (Auto) Sodium 127 L Potassium 3.9 Chloride 97 L Carbon Dioxide 24 BUN 7 Creatinine 0.61 Estimated GFR > 60 BUN/Creatinine Ratio 11.5 Glucose 165 H Serum Osmolality Calcium 8.4 Total Bilirubin 0.1 L AST 26 ALT 18 Alkaline Phosphatase 81 Total Protein 7.0 Albumin 3.5 Globulin 3.5 Albumin/Globulin Ratio 1.0 Urine Osmolality [facility] Medical History Dementia GERD (gastroesophageal reflux disease) History of diabetes mellitus, type II Hyperlipidemia Hypertension Hypothyroidism Microcytic anemia Osteoporosis Surgical History History of hysterectomy Family History Father No problems noted. Mother No problems noted. Social History household members: none Tobacco & Substance Use Smoking Status: Never smoker Assessment & Plan Assessment & Plan narrative: Persistent abdominal pain with possible ileus without clear cause as electrolyte imbalance is improved and no constipation remains. Plan: recommend ECHO to look for low EF to explain a low flow state to intestine. NO intervention recommended at this time regarding surgery and certainly no intervention if it is cardiac driven. COVID-19 COVID-19 status: Negative Time Spent With Patient Time with patient: 30 to 49 minutes with 50% spent counseling/coordinating care
[2022-10-12] MEDS: INSULIN LISPRO 100 UNIT/ML 3ML VIAL SUBCUT ×2 (11:07→16:43)
[2022-10-12 11:29] VITALS: BP 126/60; PULSE 66; RESP 19; TEMP 37; O2SAT 95
--- NOTE | 2022-10-12 12:17 | CM.DPC ---
Addendum entered by Tonie Guillory R.N. 10/12/22 13:35: RANJANA Mayo, indicated that patient did work with him today, is stand by, continues to complain of abdominal pain. Contacted [facility], spoke to Coral at the facility, was inquiring upon her baseline care needs. Stated that patient does have a four wheel walker, does not always use it, and her room is across from the dining room. She does have medication services, and is a stand by with showers. Asked about their fax number for orders when she is ready for discharge. Their fax number is: [phone]. Asked about contact nurse when patient is ready for discharge, is Danyelle Joe, at this same number. Addendum entered by Tonie Guillory R.N. 10/12/22 12:44: Surgeon had completed consult, recommending echo, no surgery at this time. Will continue to follow closely. Original Note: DCP Cont: Discussed patient during team rounds this morning. Patient may have ileus, and may be having a surgery consult. Patient has been refusing O.T, and P.T, not feeling well, but has been ambulating in her room. Had left a message with Tracey at [facility], was attempting to get more information regarding her care needs at the facility, but she did not get back to this nurse. P: DCP to continue to follow. Plan is for patient to return to [facility] when medically stable, as is documented that they can take her back, and daughter is to transport. Tonie Guillory RN/Mainframe Consultant
--- NOTE | 2022-10-12 13:10 | PT.IPTN ---
Current Diagnoses Hypo-osmolality and hyponatremia (10/09/22) Physical Therapy Treatment Note M2 PT-IP Current Condition Start: 10/10/22 15:48 Freq: NEEDED Status: Active Protocol: Document 10/10/22 16:41 AW (Rec: 10/10/22 17:20 AW [id number]) Physical Therapy Current Condition Current Condition Evaluation Date 10/10/22 Treatment Diagnosis anemia; r/o GI bleed; impaired mobility and gait Onset Date 10/08/22 M3 PT-IP Subjective Start: 10/10/22 15:48 Freq: NEEDED Status: Active Protocol: Document 10/12/22 13:34 TS (Rec: 10/12/22 14:01 TS [id number]) Subjective Physical Therapy Visit Type Type Treatment Note Visit Start Time 13:10 Visit Stop Time 13:31 Total Visit Minutes 21 Number of MILK TANKER DRIVER Visits 1 Physical Therapy Visit Comments Patient Comments Pt found resting in bed, reports continued abdominal pain, agreeable to PT. Patient Goals Return to [facility]. Therapy Pain Assessment Pain When Pain Assessed At Rest Pain Present Pain Present Pain Reported Location Abdomen Description Aching,With Movement Pain Behaviors Facial Grimacing,Guarding, Holding Area,Wincing Pain Management Techniques Distraction,Modification of Treatment,Re-positioning M4 PT-IP Mobility and Gait Start: 10/10/22 15:48 Freq: NEEDED Status: Active Protocol: Document 10/12/22 13:34 TS (Rec: 10/12/22 14:01 TS [id number]) PT-Bed Mobility Assessment Supine to Sit Supine to Sit Minimal Assistance Sit to Supine Sit to Supine Standby Assistance Scooting Scooting to Edge of Bed Standby Assistance PT-Transfer Assessment Sit to and From Stand Sit to and from Stand Standby Assistance,Contact Guard Assistance,Use of Upper Extremities Equipment Transfer Assistive Device Gait Belt,Front Wheeled Walker Orthotic/Prosthetic Devices or Brace: No Comments Mobility Comments Pt found resting in bed, agreeable to PT. Supine to sit Jah with handheld assist HOB elevated 15D. Pt scooted to EOB SBA with BUE support, no handrail assist. Sit to stand x1 SBA from bed, provided cues for sequencing. Pt ambulated ~60' CGA with step thru gait, unsteady in FWW in room, required rest ~1min rest break due to increase in pain in abdomen, sit to stand from window bench SBA, ambulated another ~30', required another rest break, pt reporting increased weakness and pain. Sit to stand from low window bench CGA, some retropulsion but able to correct balance. She ambulated back to bed ~15' CGA due unsteadiness and fatuge. Sit to supine SBA, required cues for handrail assist. Pt was left back in bed with call light nearby, all needs met. Gait Assessment Gait Gait Assistance Required: Standby Assistance,Contact Guard Assist Distance (Feet) 105 Assistive Devices Assistive Device Gait Belt,Front Wheeled Walker Orthotic/Prosthetic Devices or Brace: No Gait Deviations General Gait Pattern Flexed Trunk,Wide Based Gait Factors Limiting Gait Function Factors Limiting Gait Function Decreased Strength,Pain Comments Gait Comments See mobility comments. Stair Climbing Assessment Comments Stair Climbing Comments Not assessed. No stairs at SNF . PT-Balance Assessment Sitting Balance and Reactions Static Sitting Balance Ability Good Dynamic Sitting Balance Ability Good Standing Balance and Reactions Static Standing Balance Ability Good Dynamic Standing Balance Ability Good Device Used FWW M5 PT-IP Objective Assessments Start: 10/10/22 15:48 Freq: NEEDED Status: Active Protocol: Document 10/10/22 16:41 AW (Rec: 10/10/22 17:20 AW [id number]) Orientation Orientation/Cognition Level of Alertness Alert Orientation Name,Month,Year,Place, Situation Language Function Ability No Deficits Noted Safety Awareness Understands Safety Issues Memory Description No Deficits Noted Gross Range of Motion Upper Extremity ROM Assessment Within Functional Limits Lower Extremity ROM Assessment Within Functional Limits Strength Upper Extremity Strength Assessment Within Functional Limits Lower Extremity Strength Assessment Within Functional Limits Hip 4/5 flexion and abduction; 4+/ 5 adduction Knee 4+/5 flex and ext Ankle 4+/5 DF Sensation Assessment Sensation Gross Sensation WNL M6 PT-IP Treatment Start: 10/10/22 15:48 Freq: NEEDED Status: Active Protocol: Document 10/12/22 13:34 TS (Rec: 10/12/22 14:01 TS [id number]) Physical Therapy Treatment Education Education Provided Safety M7 PT-IP Assessment and Plan Start: 10/10/22 15:48 Freq: NEEDED Status: Active Protocol: Document 10/12/22 13:34 TS (Rec: 10/12/22 14:01 TS [id number]) PT Summary Assessment and Plan Potential Rehabilitation Potential Good Summary Impairments Pain,Strength,Transfers,Gait Progress Towards Goals Progressing Toward Goals Assessment Summary Pt is Jah for supine to sit, required handheld assist to fully upright trunk. She performed sit to stands SBA from higher surface of bed, required CGA from lower surface of window bench, pt slightly retroleans. She ambulated in room ~105' SBA/ CGA for unsteadiness in FWW. She fatgiues quickly with gait after ~60' in room due to pain and weakness in LEs, required seated rest x3 throughout session. PT currently recommends return home with 24/7 assist available. Pt was Ind with or without 4WW at baseline, seems she is close to baseline and may require some increased assist at this time. Goals Bed Mobility Goal Independent Transfer Goal Independent,Four Wheeled Walker Gait Goal Independent,Four Wheel Walker Gait Distance 150 Days to Meet Goals 2 Frequency of Treatment Frequency Of Treatment Once a Day Treatment Plan Physical Therapy Treatment Plan Bed Mobility Training,Transfer Training,Gait Training, Therapeutic Exercise,Balance Retraining,Discharge Planning, Hot or Cold Pack,Neuromuscular Re-ed Other Recommendations and Next Treatment progress transfers and gait Focus with 4WW; assess readiness for d/c from PT caseload Precautions Other Precautions falls risk Recommendations To Nursing Amount of Assist Needed Standby Assistance,1 Person Assist Discharge Recommendations PT Discharge Recommendations Home with 24/7 Assist Available Transportation Needs at Discharge Private Vehicle
[2022-10-12] MEDS: cefTRIAXone 1,000 MG in SODIUM CHLORIDE 0.9% 100 ML 200 MG IV (14:51)
--- NOTE | 2022-10-12 16:20 | P.PN_ITS ---
Subjective Subjective Interval history: Patient sleeping and not awakened. Gen surg consulted today and recommending echo to eval for CHF and scheduled GasX. Exam Vital Signs (past 8 hours): - 10/12/22 09:45 10/12/22 11:29 Temperature 98.6 F Pulse Rate 66 Respiratory Rate 19 Blood Pressure 126/60 Pulse Oximetry 95 Oxygen Delivery Method Room Air Oxygen Flow Rate 0 Oxygen Delivery Method Room Air Oxygen Flow Rate 0 Narrative Exam Narrative: General:? Patient is a well-developed, sleeping HEENT:? Normocephalic, atraumatic, extraocular muscles intact, trachea is midline. Lungs:? Auscultation of all lung avila are clear without wheezes or crackles. Cardio:? regular rate and rhythm without extra sounds or murmurs. Abdomen:? Soft diffuse tenderness, negative for organomegaly, or masses.? Bowel sounds are present. Musculoskeletal:? Muscle strength and tone are equal within normal limits. Skin:? Warm dry and intact without rashes or lesions. Neuro:? Alert and orientated to self & daughter only, normal sensation of all extremities. Psych:? Patient has a well-kept appearance, pleasant affect, mild dementia Objective Labs 10/12/22 04:15 10/12/22 04:15 Labs: Laboratory Results - last 24 hr 10/09/22 10/09/22 10/12/22 22:15 23:56 04:15 WBC 5.1 RBC 2.46 L Hgb 8.9 L Hct 25.5 L MCV 103.6 H MCH 36.1 H MCHC 34.9 RDW 15.0 H Plt Count 300 Neut % (Auto) 73.6 D Lymph % (Auto) 16.4 L [place] % (Auto) 7.9 Eos % (Auto) 1.9 L Baso % (Auto) 0.2 Neut # (Auto) 3800 Lymph # (Auto) 800 L [place] # (Auto) 400 Eos # (Auto) 100 Baso # (Auto) 0 Sodium Potassium Chloride Carbon Dioxide BUN Creatinine Estimated GFR BUN/Creatinine Ratio Glucose Serum Osmolality 253 L Calcium Total Bilirubin AST ALT Alkaline Phosphatase Total Protein Albumin Globulin Albumin/Globulin Ratio Urine Osmolality 332 10/12/22 04:15 WBC RBC Hgb Hct MCV MCH MCHC RDW Plt Count Neut % (Auto) Lymph % (Auto) [place] % (Auto) Eos % (Auto) Baso % (Auto) Neut # (Auto) Lymph # (Auto) [place] # (Auto) Eos # (Auto) Baso # (Auto) Sodium 127 L Potassium 3.9 Chloride 97 L Carbon Dioxide 24 BUN 7 Creatinine 0.61 Estimated GFR > 60 BUN/Creatinine Ratio 11.5 Glucose 165 H Serum Osmolality Calcium 8.4 Total Bilirubin 0.1 L AST 26 ALT 18 Alkaline Phosphatase 81 Total Protein 7.0 Albumin 3.5 Globulin 3.5 Albumin/Globulin Ratio 1.0 Urine Osmolality [facility] Medical History Dementia GERD (gastroesophageal reflux disease) History of diabetes mellitus, type II Hyperlipidemia Hypertension Hypothyroidism Microcytic anemia Osteoporosis Surgical History History of hysterectomy Family History Father No problems noted. Mother No problems noted. Social History household members: none Smoking Status: Never smoker Assessment & Plan Assessment & Plan narrative: Acute ileus, acute, present on admission. * ABD CT:Gaseous prominence of the colon can be seen, with loops measuring up to 5 cm, ABD U/S:enlarged GB, liquid stool observed throughout the entire colon. * Dr. Blanc to consult General surgery -discuss with Dr. Blanc personally and no need for consult based on her review of scans,.Enlarged gallbladder within normal limits and gas in colon nonsurgical related to GoLYTELY. * CXR:? Possible pulmonary edema. Patient's spironolactone reinitiated. * Continued to have abd pain, repeat CT abd showed unchanged bowel gas pattern consistent with ileus * clear liquid diet, hold imodium * Dr. Blanc to see on 10/12, recommending echo and GasX * echo with normal EF Moderate hyponatremia secondary to gastrointestinal loss, acute, present on admission * Likely secondary to gastrointestinal loss from diarrhea * ?Goal to increase serum sodium initially by no more than 4-6 mEq during the 1st 24 hours to prevent the risk of osmotic demyelination syndrome, sodium at 24 hours goal 126, but no greater than 130.? If greater than 130 start D5W infusion to lower to an appropriate amount. If? worsens with saline, likely SIADH start fluid restriction, consider salt tablets and diuretics. Sodium 123 today. Continue IV normal saline. * Repeat CMP at 10:00 p.m., trend daily * Ordered serum osmolality, urine osmolality, urine sodium, UA * Seizure precautions * improving to 128 with IVF Hypertensive urgency, acute, with a history essential hypertension present on admission, urgency resolved * Continue patient's losartan, amlodipine * Likely secondary to patient's pain and hypovolemia. * Ordered Mag, troponin, BNP, EKG Diarrhea, acute, secondary to medication induced, present on admission * X4 days dark and tarry stools likely secondary to patient's iron supplement & GoLYTELY -not related to any GI bleed. * Gentle rehydration * now with ileus Type 2 diabetes, chronic, with hyperlipidemia present on admission * Glucose 70 on admit * Patient's medications reintroduced. * Admitted on diabetic protocol, glucose checks a.c. HS, ordered A1c, low-dose sliding scale * Continue statin Dementia, chronic, present on admission * Patient confused orientated to self and daughter, she is reported to be at baseline per daughter. * Daughter states patient takes nothing for her dementia * Ordered Seroquel 12.5 mg q.h.s. daughter agreed to plan of care. Discussed with patient's daughter and this will be continued and likely continued on discharge as well. It was of great benefit for the patient on 10/09 GERD, chronic, present on admission * Holding oral omeprazole, IV Protonix daily in case a GI bleed -no GI bleed and can transitioned to oral omeprazole. Macrocytic anemia, chronic, present on admission, * HGB 9.2/HCT 26.3, MCV 102.2, MCH 35.9, based on review of previous labs patient is at baseline & stable * Holding iron supplementation at this time * coag studies normal * Vitamin B12 level normal Code status:DNR Surrogate decision maker:? Daughter Kristen TAFOYAID PCR:Negative DVT/VTE prophylaxis: Enoxaparin. Dispo: Pending improvement in ileus. Quality VTE Deep Vein Thrombosis/Pulmonary Embolism Present on Admission: Yes
--- NOTE | 2022-10-12 16:27 | OT.IP.TRT ---
Current Diagnoses Hypo-osmolality and hyponatremia (10/09/22) Occupational Therapy Treatment Note M2 OT-IP Current Condition Start: 10/10/22 10:35 Freq: Status: Active Protocol: Document 10/10/22 10:35 CGR (Rec: 10/10/22 11:15 CGR [id number]) Occupational Therapy Current Condition Current Condition Evaluation Date 10/10/22 Treatment Diagnosis HTN urgency, dark tarry stools . Diagnosis Onset Date 10/09/22 M3 OT- IP Subjective and Pain Start: 10/10/22 10:35 Freq: Status: Active Protocol: Document 10/12/22 15:55 [facility] (Rec: 10/12/22 16:42 [facility] [id number]) OT- Subjective Occupational Therapy Visit Type Type Treatment Note Visit Start Time 15:55 Visit Stop Time 16:27 Total Visit Minutes 323 Occupational Therapy Visit Comments Patient Comments Pt wanting to use the bathroom and then agreeing to shower. Patient/Caregiver Goals To go home. OT Pain Assessment Pain When Pain Assessed During Mobility Pain Present Pain Present Pain Reported Location Abdomen Intensity 7 Scale Used Numeric (0 - 10) M4 OT- IP ADL's Start: 10/10/22 10:35 Freq: Status: Active Protocol: Document 10/12/22 15:55 [facility] (Rec: 10/12/22 16:42 [facility] [id number]) OT [id number] Comments OT Self-Feeding Comments NOt at meal time. OT ADL-Grooming Comments OT Grooming Comments Not performed. OT ADL-Oral Care Comments Oral Care Comments Not performed. OT ADL-Dressing General Eval Lower Body Dressing Ability Moderate Assistance Comments OT Dressing Comments MATTHIEU to help get wet brief off and assist to prerna socks as pt getting very tired after showering. OT ADL-Toileting General Evaluation Toileting Ability Standby Assistance OT ADL-Bathing General Evaluation Bathing Ability Moderate Assistance Comments OT Bathing Comments Assist to wash her back, hair and help dry her legs and back . Pt needing use of grab bar to stand and close SBA/CGA when doing pericare needs. At this time it would be best to have assist for showering at home. Pt started to have pain on right side and 6/10 and able to notify nursing and her nurse came in to see her. M5 OT- IP IADL's Start: 10/10/22 10:35 Freq: Status: Active Protocol: Document 10/10/22 10:35 CGR (Rec: 10/10/22 11:15 CGR [id number]) OT-Instrumental Activities of Daily Living Deficits IADL Deficits Identified Deficits Home Safety Awareness Awareness of Need for Assistance at Home Decreased Awareness Ability to Problem Solve Emergency Unable to Problem Solve Situations Medication Management Medication Management Caregiver Administers Money Management Money Management Caregiver Provides Assistance Meal Preparation Meal Preparation Caregiver Provides Assist Form Maker Plaster Form Maker Plaster Caregiver Provides Assist Driving Driving Comments Pt does not drive at baseline. M6 OT- IP Functional Cognition Start: 10/10/22 10:35 Freq: Status: Active Protocol: Document 10/12/22 15:55 [facility] (Rec: 10/12/22 16:42 [facility] [id number]) Cognitive Factors Limiting Selfcare Function Cognitive Comments Cognitive Assessment Comments Pt needing cues for completeness for showering needs. M7 OT- IP Mobility and Balance Start: 10/10/22 10:35 Freq: Status: Active Protocol: Document 10/12/22 15:55 [facility] (Rec: 10/12/22 16:42 [facility] [id number]) OT-Transfer Assessment Sit to and From Stand Sit to and from Stand Standby Assistance Transfers Transfer Ability Contact Guard Assistance Technique Transfer Destination Bed,Chair,Shower Stall,Toilet Transfer Technique Stand Step Pivot Devices Transfer Assistive Devices Gait Belt,Front Wheeled Walker Comments Mobility Comments CGA to help step over the threshold of the shower, otherwise close SBA with FWW in the bathroom . OT- Balance Assessment Sitting Balance and Reactions Static Sitting Balance Ability Normal Dynamic Sitting Balance Ability Good Standing Balance and Reactions Static Standing Balance Ability Good Dynamic Standing Balance Ability Fair M8 OT- IP Objective Assessments Start: 10/10/22 10:35 Freq: Status: Active Protocol: Document 10/10/22 10:35 [facility] (Rec: 10/10/22 11:15 CGR [id number]) OT Gross Range of Motion Upper Extremity Range of Motion Assessment Within Functional Limits OT Strength Upper Extremity Strength Assessment Within Functional Limits Comments Strength Comments shoulders 4-/5, arms and hands 4/5 OT- Coordination Assessment Upper Extremity Finger to Nose Test Within Functional Limits Finger Tapping Test Within Functional Limits OT-Muscle Tone Assessment Muscle Tone WNL Yes OT Sensation Assessment Edema Edema Absent M9 OT- IP Assessment and Plan Start: 10/10/22 10:35 Freq: Status: Active Protocol: Document 10/12/22 15:55 [facility] (Rec: 10/12/22 16:42 [facility] [id number]) OT Summary Assessment and Plan Potential Rehabilitation Potential Excellent Analytic Complexity at Evaluation Low Summary OT Impairments Pain,Balance,Functional Cognition,Functional Mobility, Dressing,Bathing,Activity Tolerance Progress Towards Goals Progressing Toward Goals,Slow Progress due to Pain Assessment Summary Pt able to shower but needing some assist for her back, hair and to dry her legs as getting tired and having pain. It would be best for pt to have assist for showering at home. Goals Grooming Goal Independent Dressing Goal Independent Bathing Goal Independent Shower Transfer Goal Independent Days to Meet Goals 5 Frequency of Treatment Frequency Of Treatment Once a Day Discharge Recommendations OT Discharge Recommendations Home with Assistance Transportation Needs at Discharge Private Vehicle
[2022-10-12] MEDS: SIMETHICONE 80 MG TABLET PO ×2 (16:43→21:04)
[2022-10-12 16:53] VITALS: BP 113/55; PULSE 82; RESP 20; O2SAT 96
[2022-10-12] MEDS: ATORVASTATIN 20 MG TABLET PO (21:04)
[2022-10-12] MEDS: LORATADINE 10 MG TABLET PO (21:04)
[2022-10-12] MEDS: QUETIAPINE 25 MG TABLET 12.5 MG PO (21:05)
[2022-10-12] MEDS: NYSTATIN POWDER 15GM 1 APPLIC TOP (21:06)
[2022-10-13] MEDS: ACETAMINOPHEN 325 MG TABLET 650 MG PO ×3 (01:48→20:06)
[2022-10-13] MEDS: MAG HYDROX/ALUM/SIMETH 30 ML UDC PO ×2 (01:49→10:17)
[2022-10-13 02:42] VITALS: BP 135/63; PULSE 65; RESP 16; TEMP 35.8; O2SAT 97
[2022-10-13 04:33] LABS: Add Manual Diff / Slide Review NO; Basophils Absolute Auto 0 /uL (0-100); Basophils Percent Auto 0.4 % (0-2); Eosinophils Absolute Auto 200 /uL (0-450); Eosinophils Percent Auto 5.3 % (2-4); Hematocrit 27.2 % (36-46); Hemoglobin 9.5 g/dL (12.0-16.0); Lymphocytes Absolute Auto 1000 /uL (1100-4500); Lymphocytes Percent Auto 24.2 % (25-40); Mean Corpuscular HGB Conc 34.8 % (30-36); Mean Corpuscular Hemoglobin 35.8 PG (26-34); Mean Corpuscular Volume 102.7 fL (80-100); Monocytes Absolute Auto 400 /uL (0-900); Monocytes Percent Auto 8.5 % (3-14); Neutrophils Absolute Auto 2600 /uL (1500-7000); Neutrophils Percent Auto 61.6 % (50-75); Platelet Count 317 X10^3/uL (150-400); Red Blood Cell Count 2.65 X10^6/uL (4.0-5.2); Red Cell Distribution Width 14.8 % (11.6-14.8); White Blood Cell Count 4.3 X10^3/uL (4.5-11.0)
[2022-10-13 04:40] LABS: BUN Creatinine Ratio 8.5 (6-22); Blood Urea Nitrogen 5 mg/dL (7-17); Calcium 8.7 mg/dL (8.4-10.2); Carbon Dioxide 27 mmol/L (22-32); Chloride 97 mmol/L (98-107); Estimated Glomerular Filt Rate > 60 mL/min (>60); Glucose 125 mg/dL (80-110); HEMOLYSIS < 15 (0-50); Potassium 4.5 mmol/L (3.4-5.1); Sodium 131 mmol/L (137-145)
[2022-10-13] MEDS: LEVOTHYROXINE 75 MCG TABLET PO (06:34)
[2022-10-13] MEDS: PANTOPRAZOLE DR 20 MG TABLET PO (06:34)
[2022-10-13 08:00] VITALS: BP 131/59; PULSE 66; RESP 21; TEMP 36.6; O2SAT 97
[2022-10-13] MEDS: INSULIN LISPRO 100 UNIT/ML 3ML VIAL SUBCUT ×4 (08:39→20:43)
[2022-10-13] MEDS: SPIRONOLACTONE 25 MG TABLET 12.5 MG PO (08:39)
[2022-10-13] MEDS: ENOXAPARIN 40 MG/0.4 ML SYRINGE SUBCUT (08:39)
[2022-10-13] MEDS: FLUoxetine 20 MG CAPSULE PO (08:39)
[2022-10-13 08:40] VITALS: BP 131/59; PULSE 75
[2022-10-13] MEDS: LOSARTAN 25 MG TABLET 50 MG PO (08:40)
[2022-10-13] MEDS: CHOLECALCIFEROL (VITAMIN D3) 1,000 UNIT TABLET 1000 UNIT PO (08:40)
[2022-10-13] MEDS: SIMETHICONE 80 MG TABLET PO ×4 (08:41→20:08)
[2022-10-13] MEDS: MULTIVITAMIN 1 TABLET 1 TAB PO (08:41)
[2022-10-13] MEDS: GABAPENTIN 300 MG CAPSULE PO ×2 (08:41→20:07)
[2022-10-13] MEDS: AMLODIPINE 5 MG TABLET PO (08:41)
--- NOTE | 2022-10-13 10:13 | PT.IPTN ---
Current Diagnoses Hypo-osmolality and hyponatremia (10/09/22) Physical Therapy Treatment Note M2 PT-IP Current Condition Start: 10/10/22 15:48 Freq: NEEDED Status: Active Protocol: Document 10/10/22 16:41 AW (Rec: 10/10/22 17:20 AW [id number]) Physical Therapy Current Condition Current Condition Evaluation Date 10/10/22 Treatment Diagnosis anemia; r/o GI bleed; impaired mobility and gait Onset Date 10/08/22 M3 PT-IP Subjective Start: 10/10/22 15:48 Freq: NEEDED Status: Active Protocol: Document 10/13/22 09:58 KS (Rec: 10/13/22 10:22 KS [id number]) Subjective Physical Therapy Visit Type Type Treatment Note Visit Start Time 09:58 Visit Stop Time 10:13 Total Visit Minutes 15 Number of [employer] BUSINESS ANALYST Visits 2 Physical Therapy Visit Comments Patient Comments Pt found resting in bed, reports continued abdominal pain, agreeable to PT. Patient Goals Return to [facility]. Therapy Pain Assessment Pain When Pain Assessed During Mobility Pain Present Pain Present Pain Reported Location Abdomen Scale Used not quantified Description Aching,Dull Pain Behaviors Facial Grimacing,Guarding, Holding Area,Wincing Pain Management Techniques Distraction,Modification of Treatment,Re-positioning M4 PT-IP Mobility and Gait Start: 10/10/22 15:48 Freq: NEEDED Status: Active Protocol: Document 10/13/22 09:58 KS (Rec: 10/13/22 10:22 KS [id number]) PT-Bed Mobility Assessment Supine to Sit Supine to Sit Minimal Assistance Scooting Scooting to Edge of Bed Standby Assistance PT-Transfer Assessment Sit to and From Stand Sit to and from Stand Standby Assistance,1 Person Assistance,Use of Upper Extremities Equipment Transfer Assistive Device Gait Belt,Front Wheeled Walker Orthotic/Prosthetic Devices or Brace: No Transfers Transfer Destination Chair,Toilet Transfer Technique ambulated w/ 4WW Transfer Ability Level of Assist Contact Guard Assistance,1 Person Assistance,Use of Upper Extremities Comments Mobility Comments Pt in bed upon arrival, c/o abdominal pain but agreeable to mobilize. Required min A for sup<>sit, SBA for scooting , CGA for sit<>Stand w/ 4WW. Pt ambulated ~60 ft w/ 4WW no lob and correct use. States she feels more comfortable usin 4WW. Requested to use toilet, did not void, then ambulted to chair. Left in chair w/ all needs in reach. Gait Assessment Gait Gait Assistance Required: Standby Assistance,Contact Guard Assist Distance (Feet) 60 Assistive Devices Assistive Device Gait Belt,4 Wheeled Walker Orthotic/Prosthetic Devices or Brace: No Gait Deviations General Gait Pattern Flexed Trunk,Wide Based Gait Factors Limiting Gait Function Factors Limiting Gait Function Decreased Strength,Pain Comments Gait Comments See mobility comments. Stair Climbing Assessment Comments Stair Climbing Comments Not assessed. No stairs at [facility] . PT-Balance Assessment Sitting Balance and Reactions Static Sitting Balance Ability Good Dynamic Sitting Balance Ability Good Standing Balance and Reactions Static Standing Balance Ability Good Dynamic Standing Balance Ability Good Device Used FWW M5 PT-IP Objective Assessments Start: 10/10/22 15:48 Freq: NEEDED Status: Active Protocol: Document 10/10/22 16:41 AW (Rec: 10/10/22 17:20 AW [id number]) Orientation Orientation/Cognition Level of Alertness Alert Orientation Name,Month,Year,Place, Situation Language Function Ability No Deficits Noted Safety Awareness Understands Safety Issues Memory Description No Deficits Noted Gross Range of Motion Upper Extremity ROM Assessment Within Functional Limits Lower Extremity ROM Assessment Within Functional Limits Strength Upper Extremity Strength Assessment Within Functional Limits Lower Extremity Strength Assessment Within Functional Limits Hip 4/5 flexion and abduction; 4+/ 5 adduction Knee 4+/5 flex and ext Ankle 4+/5 DF Sensation Assessment Sensation Gross Sensation WNL M6 PT-IP Treatment Start: 10/10/22 15:48 Freq: NEEDED Status: Active Protocol: Document 10/13/22 09:58 KS (Rec: 10/13/22 10:22 KS [id number]) Physical Therapy Treatment Education Education Provided Safety M7 PT-IP Assessment and Plan Start: 10/10/22 15:48 Freq: NEEDED Status: Active Protocol: Document 10/13/22 09:58 KS (Rec: 10/13/22 10:22 KS [id number]) PT Summary Assessment and Plan Potential Rehabilitation Potential Good Summary Impairments Pain,Strength,Transfers,Gait Progress Towards Goals Progressing Toward Goals Assessment Summary Pt limited by abdominal pain and low activity tolerance, but tolerated 60 ft ambulation w/ 4WW well today w/o any LOB . Able to stand from toilet CGA. Will continue to assess progress as pt gets closer to her baseline mobility. Goals Bed Mobility Goal Independent Transfer Goal Independent,Four Wheeled Walker Gait Goal Independent,Four Wheel Walker Gait Distance 150 Days to Meet Goals 2 Frequency of Treatment Frequency Of Treatment Once a Day Treatment Plan Physical Therapy Treatment Plan Bed Mobility Training,Transfer Training,Gait Training, Therapeutic Exercise,Balance Retraining,Discharge Planning, Hot or Cold Pack,Neuromuscular Re-ed Other Recommendations and Next Treatment progress transfers and gait Focus with 4WW; assess readiness for d/c from PT caseload Precautions Other Precautions falls risk Recommendations To Nursing Amount of Assist Needed Standby Assistance,1 Person Assist Discharge Recommendations PT Discharge Recommendations Home with 24 Assist Available Transportation Needs at Discharge Private Vehicle
--- NOTE | 2022-10-13 10:18 | CM.DPC ---
Addendum entered by Tonie Guillory R.N. 10/13/22 11:02: Patient's daughter, Kristen, is in the room, as well as her grandaughter. Updated her on status, is aware that patient may be discharging tomorrow, and that [facility] was sent updated information. Patient happy, sitting up in her chair. Original Note: DCP Cont: Discussed patient during team rounds. Patient did have a BM yesterday, and now is starting on clear liquid diet, could be ready for discharge tomorrow. Attempted to reach daughter, Kristen, who is DPOA. Her mail box is currently full, but wanted to give her an update. Do have [facility]'s fax for orders. Spoke to Mary at [facility], and gave her update. Have an updated fax number, will fax over some information. The fax number that goes to nursing is: [phone]. P: DCP to continue to follow. Will fax over updated clinicals to [facility]. Will attempt to reach out to daughter again later today. Tonie Guilolry RN/Copier Operator
--- NOTE | 2022-10-13 11:23 | OT.IPNOTE ---
Pt refusing to get up x2 and states has already walk around already. Pt's daughter can get increased assist at [facility] especially for showering needs.
[2022-10-13] MEDS: cefTRIAXone 1,000 MG in SODIUM CHLORIDE 0.9% 100 ML 200 MG IV (14:13)
[2022-10-13 15:00] VITALS: BP 125/62; PULSE 66; RESP 20; TEMP 36.6; O2SAT 96
--- NOTE | 2022-10-13 15:02 | P.PN_ITS ---
Subjective Subjective Interval history: Patient continues to have bilateral upper quadrant abdominal pain, but did have a bowel movement overnight. Not eating much, but sodium up to 131 today. Exam Vital Signs (past 8 hours): - 10/13/22 07:58 10/13/22 08:40 10/13/22 08:00 Temperature 97.9 F Pulse Rate 75 66 Respiratory Rate 21 Blood Pressure 131/59 L 131/59 L Pulse Oximetry 97 Oxygen Delivery Method Room Air Oxygen Flow Rate 0 Oxygen Delivery Method Room Air Oxygen Flow Rate 0 Narrative Exam Narrative: General:? Patient is a well-developed, sleeping HEENT:? Normocephalic, atraumatic, extraocular muscles intact, trachea is midline. Lungs:? Auscultation of all lung avila are clear without wheezes or crackles. Cardio:? regular rate and rhythm without extra sounds or murmurs. Abdomen:? Soft diffuse tenderness, negative for organomegaly, or masses.? Bowel sounds are present. Musculoskeletal:? Muscle strength and tone are equal within normal limits. Skin:? Warm dry and intact without rashes or lesions. Neuro:? Alert and orientated to self & daughter only, normal sensation of all extremities. Psych:? Patient has a well-kept appearance, pleasant affect, mild dementia Objective Labs 10/13/22 04:00 10/13/22 04:00 Labs: Laboratory Results - last 24 hr 10/13/22 10/13/22 04:00 04:00 WBC 4.3 L RBC 2.65 L Hgb 9.5 L Hct 27.2 L MCV 102.7 H MCH 35.8 H MCHC 34.8 RDW 14.8 Plt Count 317 Neut % (Auto) 61.6 Lymph % (Auto) 24.2 L [place] % (Auto) 8.5 Eos % (Auto) 5.3 H Baso % (Auto) 0.4 Neut # (Auto) 2600 Lymph # (Auto) 1000 L [place] # (Auto) 400 Eos # (Auto) 200 Baso # (Auto) 0 Sodium 131 L Potassium 4.5 Chloride 97 L Carbon Dioxide 27 BUN 5 L Creatinine 0.59 Estimated GFR > 60 BUN/Creatinine Ratio 8.5 Glucose 125 H Calcium 8.7 PFSH Medical History Dementia GERD (gastroesophageal reflux disease) History of diabetes mellitus, type II Hyperlipidemia Hypertension Hypothyroidism Microcytic anemia Osteoporosis Surgical History History of hysterectomy Family History Father No problems noted. Mother No problems noted. Social History household members: none Smoking Status: Never smoker Assessment & Plan Assessment & Plan narrative: Acute ileus, acute, present on admission. * ABD CT:Gaseous prominence of the colon can be seen, with loops measuring up to 5 cm, ABD U/S:enlarged GB, liquid stool observed throughout the entire colon. * Dr. Blanc to consult General surgery -discuss with Dr. Blanc personally and no need for consult based on her review of scans,.Enlarged gallbladder within normal limits and gas in colon nonsurgical related to GoLYTELY. * CXR:? Possible pulmonary edema. Patient's spironolactone reinitiated. * Continued to have abd pain, repeat CT abd showed unchanged bowel gas pattern consistent with ileus. May have been in setting of electrolyte abnormalities. * bowel movement on 10/13 but persistent nausea and distension. Will continue clears today, advance to diet tomorrow. If tolerating can discharge, otherwise may need repeat imaging again. Moderate hyponatremia secondary to gastrointestinal loss, acute, present on admission * Likely secondary to gastrointestinal loss from diarrhea * improved today up to 131. Hypertensive urgency, acute, with a history essential hypertension present on admission, urgency resolved * Continue patient's losartan, amlodipine * Likely secondary to patient's pain and hypovolemia. * Ordered Mag, troponin, BNP, EKG Diarrhea, acute, secondary to medication induced, present on admission * X4 days dark and tarry stools likely secondary to patient's iron supplement & GoLYTELY -not related to any GI bleed. * Gentle rehydration * now with ileus Type 2 diabetes, chronic, with hyperlipidemia present on admission * Glucose 70 on admit * Patient's medications reintroduced. * Admitted on diabetic protocol, glucose checks a.c. HS, ordered A1c, low-dose sliding scale * Continue statin Dementia, chronic, present on admission * Patient confused orientated to self and daughter, she is reported to be at baseline per daughter. * Daughter states patient takes nothing for her dementia * Ordered Seroquel 12.5 mg q.h.s. daughter agreed to plan of care. Discussed with patient's daughter and this will be continued and likely continued on discharge as well. It was of great benefit for the patient on 10/09 GERD, chronic, present on admission * Holding oral omeprazole, IV Protonix daily in case a GI bleed -no GI bleed and can transitioned to oral omeprazole. Macrocytic anemia, chronic, present on admission, * HGB 9.2/HCT 26.3, MCV 102.2, MCH 35.9, based on review of previous labs patient is at baseline & stable * Holding iron supplementation at this time * coag studies normal * Vitamin B12 level normal Code status:DNR Surrogate decision maker:? Daughter Kristen Britton COVID PCR:Negative DVT/VTE prophylaxis: Enoxaparin. Dispo: Pending improvement in ileus. Quality VTE Deep Vein Thrombosis/Pulmonary Embolism Present on Admission: Yes
--- NOTE | 2022-10-13 15:59 | PC.NURSE ---
Pt transferred from ICU in chair. Alert, oriented to self and month. c/o mild but tolerable stomach pains. lung sounds CTA, no SOB, CMS intact, bowel sounds present. Pt oriented to room and reminded to use call light. Chair alarm connected, door open.
[2022-10-13] MEDS: QUETIAPINE 25 MG TABLET 12.5 MG PO (20:07)
[2022-10-13] MEDS: LORATADINE 10 MG TABLET PO (20:08)
[2022-10-13] MEDS: ATORVASTATIN 20 MG TABLET PO (20:08)
[2022-10-13] MEDS: SODIUM CHLORIDE 0.9% FLUSH 10 ML IV (20:09)
[2022-10-13 23:00] VITALS: BP 142/48; PULSE 69; RESP 18; TEMP 35.9; O2SAT 97
[2022-10-14] MEDS: PANTOPRAZOLE DR 20 MG TABLET PO (05:59)
[2022-10-14] MEDS: LEVOTHYROXINE 75 MCG TABLET PO (05:59)
[2022-10-14] MEDS: ACETAMINOPHEN 325 MG TABLET 650 MG PO ×2 (06:03→12:15)
[2022-10-14 07:24] LABS: Add Manual Diff / Slide Review NO; Basophils Absolute Auto 0 /uL (0-100); Basophils Percent Auto 0.2 % (0-2); Eosinophils Absolute Auto 100 /uL (0-450); Hematocrit 26.8 % (36-46); Hemoglobin 9.5 g/dL (12.0-16.0); Lymphocytes Absolute Auto 800 /uL (1100-4500); Lymphocytes Percent Auto 18.7 % (25-40); Mean Corpuscular HGB Conc 35.5 % (30-36); Mean Corpuscular Hemoglobin 36.5 PG (26-34); Mean Corpuscular Volume 102.7 fL (80-100); Monocytes Absolute Auto 400 /uL (0-900); Monocytes Percent Auto 8.6 % (3-14); Neutrophils Absolute Auto 3000 /uL (1500-7000); Neutrophils Percent Auto 69.5 % (50-75); Platelet Count 325 X10^3/uL (150-400); Red Blood Cell Count 2.61 X10^6/uL (4.0-5.2); White Blood Cell Count 4.4 X10^3/uL (4.5-11.0)
[2022-10-14 07:38] LABS: BUN Creatinine Ratio 11.1 (6-22); Blood Urea Nitrogen 6 mg/dL (7-17); Calcium 8.7 mg/dL (8.4-10.2); Carbon Dioxide 25 mmol/L (22-32); Chloride 98 mmol/L (98-107); Estimated Glomerular Filt Rate > 60 mL/min (>60); Glucose 196 mg/dL (80-110); HEMOLYSIS < 15 (0-50); Potassium 3.7 mmol/L (3.4-5.1); Sodium 132 mmol/L (137-145)
[2022-10-14 09:00] VITALS: BP 131/59; PULSE 71; RESP 17; TEMP 36.3; O2SAT 98
[2022-10-14] MEDS: GABAPENTIN 300 MG CAPSULE PO ×2 (09:04→21:19)
[2022-10-14] MEDS: CHOLECALCIFEROL (VITAMIN D3) 1,000 UNIT TABLET 1000 UNIT PO (09:04)
[2022-10-14] MEDS: AMLODIPINE 5 MG TABLET PO (09:04)
[2022-10-14] MEDS: SPIRONOLACTONE 25 MG TABLET 12.5 MG PO (09:04)
[2022-10-14 09:05] VITALS: BP 131/59; PULSE 69
[2022-10-14] MEDS: ENOXAPARIN 40 MG/0.4 ML SYRINGE SUBCUT (09:05)
[2022-10-14] MEDS: MULTIVITAMIN 1 TABLET 1 TAB PO (09:05)
[2022-10-14] MEDS: SIMETHICONE 80 MG TABLET PO ×4 (09:05→21:19)
[2022-10-14] MEDS: FLUoxetine 20 MG CAPSULE PO (09:05)
[2022-10-14] MEDS: LOSARTAN 25 MG TABLET 50 MG PO (09:05)
[2022-10-14] MEDS: INSULIN LISPRO 100 UNIT/ML 3ML VIAL SUBCUT ×3 (09:06→16:24)
--- NOTE | 2022-10-14 09:07 | P.DS_ITS ---
History of Present Illness History of Present Illness Date Patient Seen: 10/14/22 Time Patient Seen: 09:07 Chief complaint: Abd pain LUQ Narrative: Per admitting provider, Awilda Lincoln is an 86-year-old female with a history of dementia, osteoporosis, GERD, depression, hypothyroidism, hyperlipidemia, hypertension, microcytic anemia, and diabetes who lives at [facility] and was reported to have 5-6 loose dark/tarry stools today, patient does take iron, was seen in the ED on 10/05/2022 for abdominal pain workup was unremarkable patient was released home. Patient also had a recent UTI and was on antibiotics. Also patient was started on GoLYTELY 4 days ago for constipation she stopped taking it 24 hours ago- resulting in her diarrhea. Presented to the ED today complaining of right upper quadrant pain, radiating around into her back. Patient was found to have hypertensive urgency, tachypneic in the ED BP 191/144, 181/71 respiratory rates 25-32, was given morphine & Toradol for abdominal pain. Unable to obtain acc urate HPI, ROS, family history due to patient's dementia confusion. Daughter Kristen (POA) is at bedside, and provides some information? She denies shortness of breath, chest pain, body aches or chills or fever.? She denies any upper respiratory symptoms such as sore throat, nasal congestion or cough.? She denies nausea, vomiting, nor numbness or weakness, pain with urination or frequency- The daughter endorses these statement.? On admit temp 98.3?, BP 181/71, 67, 19, 98% on room air. Patient is pleasantly confused somewhat directable, orientated to self and recognizes her daughter but confusion and aggitation appears to be increasing likely . Patient does not appear to be in any pain or discomfort although quite restless in the bed. H&H stable for her microcytic anemia HGB 9.2/HCT 26.3, MCV 102.2, MCH 35.9. Moderate hyponatremia sodium 120, chloride 89, bicarb 21, GFR 58. The rest of patient's chemistry panel and liver are unremarkable. TSH was normal, abdominal CT showed gaseous colon loop distention 5 cm, with liquid stools throughout, and distended gallbladder, abdominal ultrasound showed enlarged gallbladder, patient's guaiac stool was negative. No further workup was completed ED. Patient admitted for right upper quadrant pain, moderate hyponatremia, with hypertensive urgency. Discharge Providers Provider Date of admission: 10/09/22 20:41 Discharge Date: 10/14/22 Primary care physician: Doctor Iban MD Consults: 10/09/22 20:59 Consult to Occupational Therapy Evaluate & Treat Comment: Physician Instructions: Evaluate and treat Consult to Physical Therapy Evaluate & Treat Comment: Physician Instructions: Evaluate and Treat 10/09/22 21:28 Consult to General Surgery Routine Comment: Consulting Provider: Yana Blanc Reason for consultation: Dilated bowel Has provider been notified: Yes Discharge provider: Everardo Malik DO Summary Hospital Course Discharge Diagnosis: Acute ileus, acute, present on admission. * ABD CT:Gaseous prominence of the colon can be seen, with loops measuring up to 5 cm, ABD U/S:enlarged GB, liquid stool observed throughout the entire colon. * Dr. Blanc to consult General surgery -discuss with Dr. Blanc personally and no need for consult based on her review of scans,.Enlarged gallbladder within normal limits and gas in colon nonsurgical related to GoLYTELY. * CXR:? Possible pulmonary edema.? Patient's spironolactone reinitiated. * Continued to have abd pain, repeat CT abd showed unchanged bowel gas pattern consistent with ileus. May have been in setting of electrolyte abnormalities. * bowel movement on 10/13 but persistent nausea and distension. Will continue clears today, advance to diet tomorrow. If tolerating can discharge, otherwise may need repeat imaging again. Moderate hyponatremia secondary to gastrointestinal loss, acute, present on admission * Likely secondary to gastrointestinal loss from diarrhea * improved today up to 131. Hypertensive urgency, acute, with a history essential hypertension present on admission, urgency resolved * Continue patient's losartan, amlodipine * Likely secondary to patient's pain and hypovolemia. * Ordered Mag, troponin, BNP, EKG Diarrhea, acute, secondary to medication induced, present on admission * X4 days dark and tarry stools likely secondary to patient's iron supplement & GoLYTELY -not related to any GI bleed. * Gentle rehydration * now with ileus Type 2 diabetes, chronic, with hyperlipidemia present on admission * Glucose 70 on admit * Patient's medications reintroduced. * Admitted on diabetic protocol, glucose checks a.c. HS, ordered A1c, low-dose sliding scale * Continue statin Dementia, chronic, present on admission * Patient confused orientated to self and daughter, she is reported to be at baseline per daughter. * Daughter states patient takes nothing for her dementia * Ordered Seroquel 12.5 mg q.h.s. daughter agreed to plan of care.? Discussed with patient's daughter and this will be continued and likely continued on discharge as well.? It was of great benefit for the patient on 10/09 GERD, chronic, present on admission * Holding oral omeprazole, IV Protonix daily in case a GI bleed -no GI bleed and can transitioned to oral omeprazole. Macrocytic anemia, chronic, present on admission, * HGB 9.2/HCT 26.3, MCV 102.2, MCH 35.9, based on review of previous labs patient is at baseline & stable * Holding iron supplementation at this time * coag studies normal * Vitamin B12 level normal Code status:DNR Surrogate decision maker:? Daughter Kritsen Britton COVID PCR:Negative DVT/VTE prophylaxis:? Enoxaparin. Dispo: Pending improvement in ileus. Exam Vital Signs (past 8 hours): Oxygen Delivery Method Room Air Oxygen Flow Rate 0 Objective Labs 10/14/22 06:15 10/14/22 06:15 Labs: Laboratory Results - last 24 hr 10/14/22 10/14/22 06:15 06:15 WBC 4.4 L RBC 2.61 L Hgb 9.5 L Hct 26.8 L MCV 102.7 H MCH 36.5 H MCHC 35.5 RDW 15.0 H Plt Count 325 Neut % (Auto) 69.5 Lymph % (Auto) 18.7 L [place] % (Auto) 8.6 Eos % (Auto) 3.0 Baso % (Auto) 0.2 Neut # (Auto) 3000 Lymph # (Auto) 800 L [place] # (Auto) 400 Eos # (Auto) 100 Baso # (Auto) 0 Sodium 132 L Potassium 3.7 Chloride 98 Carbon Dioxide 25 BUN 6 L Creatinine 0.54 Estimated GFR > 60 BUN/Creatinine Ratio 11.1 Glucose 196 H Calcium 8.7 PFSH Medical History Dementia GERD (gastroesophageal reflux disease) History of diabetes mellitus, type II Hyperlipidemia Hypertension Hypothyroidism Microcytic anemia Osteoporosis Surgical History History of hysterectomy Family History Father No problems noted. Mother No problems noted. Social History household members: none Smoking Status: Never smoker Discharge Plan Discharge orders & Medications Prescriptions: No Action loratadine [Allergy Relief (loratadine)] 10 mg tablet 10 mg PO DAILY Tresiba FlexTouch U-100 100 unit/mL (3 mL) insulin pen 22 unit SUBCUT DAILY rosuvastatin 10 mg tablet 10 mg PO DAILY ketoconazole 2 % cream 1 applic topical DAILY PRN (Reason: Rash) triamcinolone acetonide 0.1 % cream 1 applic topical DAILY PRN (Reason: Rash) fluoxetine 20 MG capsule 20 mg PO QDAY Qty: 0 gabapentin [Neurontin] 300 MG capsule 300 mg PO BID Qty: 0 spironolactone 25 MG tablet 25 mg QDAY Qty: 0 insulin asp prt-insulin aspart [Novolog Mix 70-30FlexPen U-100] 100 UNIT/1 ML insulin pen See Rx Instructions .ROUTE .COMPLEX Qty: 0 Rx Instructions: Inject subcutaneously per sliding scale 2 times daily 150-199=2 units, 200- 250=3 units, 250-299=4 units, 300 or higher= 5 units metformin 1,000 MG tablet extended release 24hr 1,000 mg PO BID Qty: 0 losartan 25 mg tablet 50 mg PO DAILY Qty: 0 Follow up/Referrals: Doctor Ferrera MD [Primary Care Provider] - Discharge Data Primary Care Provider: Doctor Iban Quality VTE Deep Vein Thrombosis/Pulmonary Embolism Present on Admission: Yes
[2022-10-14] MEDS: ONDANSETRON 4 MG ODT SL (09:09)
--- NOTE | 2022-10-14 10:44 | CM.DPC ---
Addendum entered by PEEWEE Spence 10/14/22 14:21: ADD: discharge order cancelled as pt not yet medically stable to d/c. Will attempt return to [place] tomorrow if stable. BF Original Note: DCP Discharge [facility] Per MD, pt thought to be medically stable to d/c back to her [facility] today but then started having some nausea and pain and adding medication this morning and will re-assess after 1200 to see if pt stable for d/c yet today. SW called [facility] and updated on possible d/c today vs tomorrow pending progress and confirmed they just need d/c summary and signed med list. Plan: SW to follow for possible d/c back to [facility] today vs tomorrow pending nausea/pain via Dtr POV. PEEWEE Spence
--- NOTE | 2022-10-14 10:45 | PT.IPTN ---
Current Diagnoses Hypo-osmolality and hyponatremia (10/09/22) Physical Therapy Treatment Note M2 PT-IP Current Condition Start: 10/10/22 15:48 Freq: NEEDED Status: Active Protocol: Document 10/10/22 16:41 AW (Rec: 10/10/22 17:20 AW [id number]) Physical Therapy Current Condition Current Condition Evaluation Date 10/10/22 Treatment Diagnosis anemia; r/o GI bleed; impaired mobility and gait Onset Date 10/08/22 M3 PT-IP Subjective Start: 10/10/22 15:48 Freq: NEEDED Status: Active Protocol: Document 10/14/22 11:07 TS (Rec: 10/14/22 11:34 TS [id number]) Subjective Physical Therapy Visit Type Type Treatment Note Visit Start Time 10:45 Visit Stop Time 11:05 Total Visit Minutes 20 Number of PAINT TRIMMER PIPE BOWLS Visits 3 Physical Therapy Visit Comments Patient Comments Pt found resting in bed, reports she is feeling better than this morning, needs to use toilet, agreeable to PT. Patient Goals Return to [facility]. Therapy Pain Assessment Pain When Pain Assessed At Rest Pain Present Pain Present Pain Reported Location Abdomen Scale Used not quantified M4 PT-IP Mobility and Gait Start: 10/10/22 15:48 Freq: NEEDED Status: Active Protocol: Document 10/14/22 11:07 TS (Rec: 10/14/22 11:34 TS [id number]) PT-Bed Mobility Assessment Supine to Sit Supine to Sit Standby Assistance Sit to Supine Sit to Supine Minimal Assistance Scooting Scooting to Edge of Bed Standby Assistance Scooting Up and Down in Bed Standby Assistance PT-Transfer Assessment Sit to and From Stand Sit to and from Stand Standby Assistance,1 Person Assistance,Use of Upper Extremities Equipment Transfer Assistive Device Gait Belt,Front Wheeled Walker Orthotic/Prosthetic Devices or Brace: No Comments Mobility Comments Pt found resting in bed, agreeable to PT. Supine to sit from flat bed SBA with BUE support. Scooted to EOB SBA with BUEs, slightly impulsive to stand before therapist was ready. Sit to stand SBA with FWW, flexed psoture in standing, no LOB or retroleaning. Pt ambulated to toilet SBA ~15' with normal gait, flexed posture, doffed brief with no AD for stand to sit to toilet. Sit to stand from toilet SBA with FWW, pt reporting being fatigued and dizzy, requesting back to bed. Sit to supine Jah for LEs into bed. Pt was left in bed with call light nearby, all needs met. Gait Assessment Gait Gait Assistance Required: Standby Assistance Distance (Feet) 30 Assistive Devices Assistive Device Gait Belt,Front Wheeled Walker Orthotic/Prosthetic Devices or Brace: No Gait Deviations General Gait Pattern Flexed Trunk,Wide Based Gait Factors Limiting Gait Function Factors Limiting Gait Function Decreased Strength,Pain Comments Gait Comments See mobility comments. Stair Climbing Assessment Comments Stair Climbing Comments Not assessed. No stairs at [facility] . PT-Balance Assessment Sitting Balance and Reactions Static Sitting Balance Ability Good Dynamic Sitting Balance Ability Good Standing Balance and Reactions Static Standing Balance Ability Good Dynamic Standing Balance Ability Good Device Used FWW M5 PT-IP Objective Assessments Start: 10/10/22 15:48 Freq: NEEDED Status: Active Protocol: Document 10/10/22 16:41 AW (Rec: 10/10/22 17:20 AW [id number]) Orientation Orientation/Cognition Level of Alertness Alert Orientation Name,Month,Year,Place, Situation Language Function Ability No Deficits Noted Safety Awareness Understands Safety Issues Memory Description No Deficits Noted Gross Range of Motion Upper Extremity ROM Assessment Within Functional Limits Lower Extremity ROM Assessment Within Functional Limits Strength Upper Extremity Strength Assessment Within Functional Limits Lower Extremity Strength Assessment Within Functional Limits Hip 4/5 flexion and abduction; 4+/ 5 adduction Knee 4+/5 flex and ext Ankle 4+/5 DF Sensation Assessment Sensation Gross Sensation WNL M6 PT-IP Treatment Start: 10/10/22 15:48 Freq: NEEDED Status: Active Protocol: Document 10/14/22 11:07 TS (Rec: 10/14/22 11:34 TS [id number]) Physical Therapy Treatment Education Education Provided Safety M7 PT-IP Assessment and Plan Start: 10/10/22 15:48 Freq: NEEDED Status: Active Protocol: Document 10/14/22 11:07 TS (Rec: 10/14/22 11:34 TS [id number]) PT Summary Assessment and Plan Potential Rehabilitation Potential Good Summary Impairments Pain,Strength,Transfers,Gait Progress Towards Goals Progressing Toward Goals Assessment Summary Pt is progressing well with her mobility. She requires SBA for most bed mobility, Jah for sit to supine for her LEs. She continues to be SBA for sit to stands and gait. Pt requested to use toilet at start of session, pt able to perform own pericare. Therapist noticed some blood while she performed pericare and dark runny stool, notified nursing staff. Pt became fatigued after use of toilet, reported feeling dizzy and requested back to bed. PT continues to recommend return home with 24/7 assist available. Goals Bed Mobility Goal Independent Transfer Goal Independent,Four Wheeled Walker Gait Goal Independent,Four Wheel Walker Gait Distance 150 Days to Meet Goals 2 Frequency of Treatment Frequency Of Treatment Once a Day Treatment Plan Physical Therapy Treatment Plan Bed Mobility Training,Transfer Training,Gait Training, Therapeutic Exercise,Balance Retraining,Discharge Planning, Hot or Cold Pack,Neuromuscular Re-ed Other Recommendations and Next Treatment progress transfers and gait Focus with 4WW; assess readiness for d/c from PT caseload Precautions Other Precautions falls risk Recommendations To Nursing Amount of Assist Needed Standby Assistance,1 Person Assist Discharge Recommendations PT Discharge Recommendations Home with 24/7 Assist Available Transportation Needs at Discharge Private Vehicle
--- NOTE | 2022-10-14 11:29 | OT.IPNOTE ---
Patient in bed with complaint of headache and thus, not agreeable to OT treatment at this time. OT to attempt at later time.
[2022-10-14] MEDS: METOCLOPRAMIDE HCL 5 MG TABLET PO ×2 (11:36→16:24)
[2022-10-14] MEDS: CALCIUM CARBONATE 500 MG TAB 1000 MG PO (12:14)
[2022-10-14 12:34] VITALS: BP 134/62; PULSE 68; RESP 17; TEMP 36.4; O2SAT 97
--- NOTE | 2022-10-14 13:50 | P.PN_ITS ---
Subjective Subjective Interval history: Patient was doing well this morning, was ready for discharge but then developed some nausea and emesis after eating breakfast. Improved this afternoon with reglan given AC. Will continue current diet, had a small bowel movement this AM. Will continue to trial standing reglan prior to meals, in hopes she can discharge home tomorrow. Exam Vital Signs (past 8 hours): - 10/14/22 09:05 10/14/22 09:00 10/14/22 12:34 Temperature 97.3 F L 97.5 F L Pulse Rate 69 71 68 Respiratory Rate 17 17 Blood Pressure 131/59 L 131/59 L 134/62 Pulse Oximetry 98 97 Oxygen Flow Rate 0 0 Oxygen Delivery Method Room Air Oxygen Flow Rate 0 Narrative Exam Narrative: General:? Patient is a well-developed, sleeping HEENT:? Normocephalic, atraumatic, extraocular muscles intact, trachea is midline. Lungs:? Auscultation of all lung avila are clear without wheezes or crackles. Cardio:? regular rate and rhythm without extra sounds or murmurs. Abdomen:? Soft diffuse tenderness, negative for organomegaly, or masses.? Bowel sounds are present. Musculoskeletal:? Muscle strength and tone are equal within normal limits. Skin:? Warm dry and intact without rashes or lesions. Neuro:? Alert and orientated to self & daughter only, normal sensation of all extremities. Psych:? Patient has a well-kept appearance, pleasant affect, mild dementia Objective Labs 10/14/22 06:15 10/14/22 06:15 Labs: Laboratory Results - last 24 hr 10/14/22 10/14/22 06:15 06:15 WBC 4.4 L RBC 2.61 L Hgb 9.5 L Hct 26.8 L MCV 102.7 H MCH 36.5 H MCHC 35.5 RDW 15.0 H Plt Count 325 Neut % (Auto) 69.5 Lymph % (Auto) 18.7 L Flagler % (Auto) 8.6 Eos % (Auto) 3.0 Baso % (Auto) 0.2 Neut # (Auto) 3000 Lymph # (Auto) 800 L Flagler # (Auto) 400 Eos # (Auto) 100 Baso # (Auto) 0 Sodium 132 L Potassium 3.7 Chloride 98 Carbon Dioxide 25 BUN 6 L Creatinine 0.54 Estimated GFR > 60 BUN/Creatinine Ratio 11.1 Glucose 196 H Calcium 8.7 [facility] Medical History Dementia GERD (gastroesophageal reflux disease) History of diabetes mellitus, type II Hyperlipidemia Hypertension Hypothyroidism Microcytic anemia Osteoporosis Surgical History History of hysterectomy Family History Father No problems noted. Mother No problems noted. Social History household members: none Smoking Status: Never smoker Assessment & Plan Assessment & Plan narrative: Acute ileus, acute, present on admission. * ABD CT:Gaseous prominence of the colon can be seen, with loops measuring up to 5 cm, ABD U/S:enlarged GB, liquid stool observed throughout the entire colon. * Dr. Blanc to consult General surgery -discuss with Dr. Blanc personally and no need for consult based on her review of scans,.Enlarged gallbladder within normal limits and gas in colon nonsurgical related to GoLYTELY. * CXR:? Possible pulmonary edema. Patient's spironolactone reinitiated. * Continued to have abd pain, repeat CT abd showed unchanged bowel gas pattern consistent with ileus. May have been in setting of electrolyte abnormalities. * bowel movement on 10/13 but persistent nausea and distension which distension is improving today. Did have emesis with breakfast this AM so will start reglan AC scheduled today. Moderate hyponatremia secondary to gastrointestinal loss, acute, present on admission * Likely secondary to gastrointestinal loss from diarrhea * improved today up to 131. Hypertensive urgency, acute, with a history essential hypertension present on admission, urgency resolved * Continue patient's losartan, amlodipine * Likely secondary to patient's pain and hypovolemia. * Ordered Mag, troponin, BNP, EKG Diarrhea, acute, secondary to medication induced, present on admission * X4 days dark and tarry stools likely secondary to patient's iron supplement & GoLYTELY -not related to any GI bleed. * Gentle rehydration * now with ileus as noted above Type 2 diabetes, chronic, with hyperlipidemia present on admission * Glucose 70 on admit * Patient's medications reintroduced. * Admitted on diabetic protocol, glucose checks a.c. HS, ordered A1c, low-dose sliding scale * Continue statin Dementia, chronic, present on admission * Patient confused orientated to self and daughter, she is reported to be at baseline per daughter. * Daughter states patient takes nothing for her dementia * Ordered Seroquel 12.5 mg q.h.s. daughter agreed to plan of care. Discussed with patient's daughter and this will be continued and likely continued on discharge as well. It was of great benefit for the patient on 10/09 GERD, chronic, present on admission * Holding oral omeprazole, IV Protonix daily in case a GI bleed -no GI bleed and can transitioned to oral omeprazole. Macrocytic anemia, chronic, present on admission, * HGB 9.2/HCT 26.3, MCV 102.2, MCH 35.9, based on review of previous labs patient is at baseline & stable * Holding iron supplementation at this time * coag studies normal * Vitamin B12 level normal Code status:DNR Surrogate decision maker:? Daughter Kristen Britton COVID PCR:Negative DVT/VTE prophylaxis: Enoxaparin. Dispo: Pending improvement in ileus. Quality VTE Deep Vein Thrombosis/Pulmonary Embolism Present on Admission: Yes
[2022-10-14] MEDS: NYSTATIN POWDER 15GM 1 APPLIC TOP (18:19)
[2022-10-14 19:40] VITALS: BP 150/55; PULSE 61; RESP 16; TEMP 36.2; O2SAT 100
[2022-10-14] MEDS: ATORVASTATIN 20 MG TABLET PO (21:19)
[2022-10-14] MEDS: LORATADINE 10 MG TABLET PO (21:20)
[2022-10-14] MEDS: QUETIAPINE 25 MG TABLET 12.5 MG PO (21:20)
[2022-10-15 04:50] VITALS: BP 157/72; PULSE 78; RESP 18; TEMP 36.3; O2SAT 95
[2022-10-15] MEDS: LEVOTHYROXINE 75 MCG TABLET PO (06:08)
[2022-10-15] MEDS: PANTOPRAZOLE DR 20 MG TABLET PO (06:08)
[2022-10-15 06:33] LABS: Add Manual Diff / Slide Review NO; Basophils Absolute Auto 0 /uL (0-100); Basophils Percent Auto 0.3 % (0-2); Eosinophils Absolute Auto 100 /uL (0-450); Eosinophils Percent Auto 3.4 % (2-4); Hematocrit 24.9 % (36-46); Hemoglobin 8.6 g/dL (12.0-16.0); Lymphocytes Absolute Auto 900 /uL (1100-4500); Lymphocytes Percent Auto 19.9 % (25-40); Mean Corpuscular HGB Conc 34.5 % (30-36); Mean Corpuscular Hemoglobin 35.7 PG (26-34); Mean Corpuscular Volume 103.5 fL (80-100); Monocytes Absolute Auto 400 /uL (0-900); Monocytes Percent Auto 9.3 % (3-14); Neutrophils Absolute Auto 2900 /uL (1500-7000); Neutrophils Percent Auto 67.1 % (50-75); Platelet Count 296 X10^3/uL (150-400); Red Blood Cell Count 2.41 X10^6/uL (4.0-5.2); Red Cell Distribution Width 14.8 % (11.6-14.8); White Blood Cell Count 4.3 X10^3/uL (4.5-11.0)
[2022-10-15 06:44] LABS: BUN Creatinine Ratio 16.9 (6-22); Blood Urea Nitrogen 10 mg/dL (7-17); Calcium 8.4 mg/dL (8.4-10.2); Carbon Dioxide 25 mmol/L (22-32); Chloride 97 mmol/L (98-107); Estimated Glomerular Filt Rate > 60 mL/min (>60); Glucose 207 mg/dL (80-110); HEMOLYSIS < 15 (0-50); Potassium 3.6 mmol/L (3.4-5.1); Sodium 131 mmol/L (137-145)
[2022-10-15] MEDS: INSULIN LISPRO 100 UNIT/ML 3ML VIAL SUBCUT (07:59)
--- NOTE | 2022-10-15 08:10 | PM.DS.1 ---
History of Present Illness History of Present Illness Date Patient Seen: 10/15/22 Time Patient Seen: 08:10 Chief complaint: Abd pain LUQ Narrative: Awilda Lincoln is an 86-year-old female with a history of dementia, osteoporosis, GERD, depression, hypothyroidism, hyperlipidemia, hypertension, microcytic anemia, and diabetes who lives at [facility] and was reported to have 5-6 loose dark/tarry stools today, patient does take iron, was seen in the ED on 10/05/2022 for abdominal pain workup was unremarkable patient was released home. Patient also had a recent UTI and was on antibiotics. Also patient was started on GoLYTELY 4 days ago for constipation she stopped taking it 24 hours ago-resulting in her diarrhea. Presented to the ED today complaining of right upper quadrant pain, radiating around into her back. Patient was found to have hypertensive urgency, tachypneic in the ED BP 191/144, 181/71 respiratory rates 25-32, was given morphine & Toradol for abdominal pain. Unable to obtain accurate HPI, ROS, family history due to patient's dementia confusion. Daughter Kristen (POA) is at bedside, and provides some information? She denies shortness of breath, chest pain, body aches or chills or fever.? She denies any upper respiratory symptoms such as sore throat, nasal congestion or cough.? She denies nausea, vomiting, nor numbness or weakness, pain with urination or frequency- The daughter endorses these statement.? On admit temp 98.3?, BP 181/71, 67, 19, 98% on room air. Patient is pleasantly confused somewhat directable, orientated to self and recognizes her daughter but confusion and aggitation appears to be increasing likely . Patient does not appear to be in any pain or discomfort although quite restless in the bed. H&H stable for her microcytic anemia HGB 9.2/HCT 26.3, MCV 102.2, MCH 35.9. Moderate hyponatremia sodium 120, chloride 89, bicarb 21, GFR 58. The rest of patient's chemistry panel and liver are unremarkable. TSH was normal, abdominal CT showed gaseous colon loop distention 5 cm, with liquid stools throughout, and distended gallbladder, abdominal ultrasound showed enlarged gallbladder, patient's guaiac stool was negative. No further workup was completed ED. Patient admitted for right upper quadrant pain, moderate hyponatremia, with hypertensive urgency. Discharge Providers Provider Date of admission: 10/09/22 20:41 Discharge Date: 10/15/22 Primary care physician: Doctor Iban MD Consults: 10/09/22 20:59 Consult to Occupational Therapy Evaluate & Treat Comment: Physician Instructions: Evaluate and treat Consult to Physical Therapy Evaluate & Treat Comment: Physician Instructions: Evaluate and Treat 10/09/22 21:28 Consult to General Surgery Routine Comment: Consulting Provider: Yana Blanc Reason for consultation: Dilated bowel Has provider been notified: Yes Discharge provider: Everardo Malik DO Summary Hospital Course Discharge Diagnosis: Acute ileus, acute, present on admission. Moderate hyponatremia secondary to gastrointestinal loss, acute, present on admission Hypertensive urgency, acute, with a history essential hypertension present on admission, urgency resolved Diarrhea, acute, secondary to medication induced, present on admission Type 2 diabetes, chronic, with hyperlipidemia present on admission Dementia, chronic, present on admission GERD, chronic, present on admission Macrocytic anemia, chronic, present on admission, Hospital Course: 86 year old female admitted initially for hyponatremia and abdominal pain with dark tarry stools (though guaiac negative). Initial CT showed gaseous distension of her colon with concern for possible ileus. General surgery was consulted, and laxitives were initiated. Ileus was thought to be in the setting of electrolyte abnormalities. She previously had been having diarrhea with GoLytlely prior to admission and again developed diarrhea here with golytely given. Her sodium level continued to improve with IV fluids, and continued to improve even when stopped, up to the low 130s the last 3 days of her admission. She continued to have issues with tolerance of her meals wtih cessation of laxitive therapies, most notably at breakfast with waxing and waning distension. Repeat CT showed ileus, but then she felt well after another bowel movement and diet was advanced. After her first regular meal, she vomited, and was started on metoclopramide before meals with improved tolerance. These symptoms may be due to diabetic gastroparesis or continued issues with her hyponatremia from admission. Recommend cessation of metoclopramide before meals in a couple of days, then in symptoms recur evaluation for possible gastroparesis with primary care provide is recommended. With patient's underlying dementia, patient would become more confused during the evening time, but had much improvement with nightly seroquel, which was continued at the time of discharge. Time Spent with Patient Time spent: Greater than 30 minutes Exam Vital Signs (past 8 hours): - 10/15/22 04:50 Temperature 97.4 F L Pulse Rate 78 Respiratory Rate 18 Blood Pressure 157/72 H Pulse Oximetry 95 Oxygen Flow Rate 0 Oxygen Delivery Method Room Air Oxygen Flow Rate 0 Narrative Exam Narrative: General:? Patient is a well-developed, well nourished elderly female in no acute distress HEENT:? Normocephalic, atraumatic, extraocular muscles intact, trachea is midline. Lungs:? Auscultation of all lung avila are clear without wheezes or crackles. Cardio:? regular rate and rhythm without extra sounds or murmurs. Abdomen:? S NT ND. Bowel sounds are present. Musculoskeletal:? Muscle strength and tone are equal within normal limits. Skin:? Warm dry and intact without rashes or lesions. Neuro:? Alert and orientated to self & daughter only, normal sensation of all extremities. Psych:? Patient has a well-kept appearance, pleasant affect, mild dementia Objective Labs 10/15/22 05:27 10/15/22 05:27 Labs: Laboratory Results - last 24 hr 10/15/22 10/15/22 05:27 05:27 WBC 4.3 L RBC 2.41 L Hgb 8.6 L Hct 24.9 L MCV 103.5 H MCH 35.7 H MCHC 34.5 RDW 14.8 Plt Count 296 Neut % (Auto) 67.1 Lymph % (Auto) 19.9 L Lyman % (Auto) 9.3 Eos % (Auto) 3.4 Baso % (Auto) 0.3 Neut # (Auto) 2900 Lymph # (Auto) 900 L Lyman # (Auto) 400 Eos # (Auto) 100 Baso # (Auto) 0 Sodium 131 L Potassium 3.6 Chloride 97 L Carbon Dioxide 25 BUN 10 Creatinine 0.59 Estimated GFR > 60 BUN/Creatinine Ratio 16.9 Glucose 207 H Calcium 8.4 PFSH Medical History Dementia GERD (gastroesophageal reflux disease) History of diabetes mellitus, type II Hyperlipidemia Hypertension Hypothyroidism Microcytic anemia Osteoporosis Surgical History History of hysterectomy Family History Father No problems noted. Mother No problems noted. Social History household members: none Smoking Status: Never smoker Discharge Plan Discharge Plan Patient Disposition: Home Health Service Provider Discharge Comment: You were admitted to the hospital initially with a low sodium level, this has improved. During your hospitalization you developed an ileus which was likely due to the low sodium level. Please continue reglan before meals as it seems to be helping, I recommend you continue this through the weekend, then take as needed starting on monday if you're still having nausea. Discharge orders & Medications Prescriptions: New quetiapine 25 mg Tablet 12.5 mg PO BEDTIME 30 Days Qty: 15 0RF pantoprazole 20 mg Tablet,Delayed Release (Dr/Ec) 20 mg PO 0600 30 Days Qty: 30 0RF metoclopramide HCl 5 mg tablet 5 mg PO QAC 10 Days Qty: 30 0RF Rx Instructions: administer 30 minutes before meals aluminum hydrox-magnesium carb 254-237.5 mg/5 mL suspension 5 ml PO QID PRN (Reason: dyspepsia) Qty: 355 0RF Rx Instructions: Generic Maalox, 5 mL QID prn dyspepsia Continued loratadine [Allergy Relief (loratadine)] 10 mg tablet 10 mg PO DAILY Tresiba FlexTouch U-100 100 unit/mL (3 mL) insulin pen 22 unit SUBCUT DAILY rosuvastatin 10 mg tablet 10 mg PO DAILY ketoconazole 2 % cream 1 applic topical DAILY PRN (Reason: Rash) triamcinolone acetonide 0.1 % cream 1 applic topical DAILY PRN (Reason: Rash) fluoxetine 20 MG capsule 20 mg PO QDAY Qty: 0 gabapentin [Neurontin] 300 MG capsule 300 mg PO BID Qty: 0 spironolactone 25 MG tablet 25 mg QDAY Qty: 0 insulin asp prt-insulin aspart [Novolog Mix 70-30FlexPen U-100] 100 UNIT/1 ML insulin pen See Rx Instructions .ROUTE .COMPLEX Qty: 0 Rx Instructions: Inject subcutaneously per sliding scale 2 times daily 150-199=2 units, 200-250=3 units, 250-299=4 units, 300 or higher= 5 units metformin 1,000 MG tablet extended release 24hr 1,000 mg PO BID Qty: 0 losartan 25 mg tablet 50 mg PO DAILY Qty: 0 Follow up/Referrals: Miscellaneous,Doctor, [Primary Care Provider] - Diet/Activity/Treatments Diet: Diet as Tolerated Activity: As tolerated Visit Report/Discharge Packet Stand Alone Forms: Patient Portal/API, Stroke Signs & Symptoms Discharge Data Primary Care Provider: Iban,Doctor Discharges patient from system. Discharge Date/Time: 10/15/22 15:13 Quality VTE Deep Vein Thrombosis/Pulmonary Embolism Present on Admission: Yes
[2022-10-15 08:42] VITALS: BP 150/70
[2022-10-15] MEDS: LOSARTAN 25 MG TABLET 50 MG PO (08:42)
[2022-10-15] MEDS: SPIRONOLACTONE 25 MG TABLET 12.5 MG PO (08:42)
[2022-10-15] MEDS: MULTIVITAMIN 1 TABLET 1 TAB PO (08:42)
[2022-10-15] MEDS: AMLODIPINE 5 MG TABLET PO (08:42)
[2022-10-15] MEDS: SIMETHICONE 80 MG TABLET PO ×2 (08:42→14:57)
[2022-10-15] MEDS: ENOXAPARIN 40 MG/0.4 ML SYRINGE SUBCUT (08:43)
[2022-10-15] MEDS: GABAPENTIN 300 MG CAPSULE PO (08:43)
[2022-10-15] MEDS: CHOLECALCIFEROL (VITAMIN D3) 1,000 UNIT TABLET 1000 UNIT PO (08:43)
[2022-10-15] MEDS: FLUoxetine 20 MG CAPSULE PO (08:45)
[2022-10-15 09:14] VITALS: BP 141/62; PULSE 77; RESP 17; TEMP 36.3; O2SAT 98
--- NOTE | 2022-10-15 10:27 | PT-IP ANOTE ---
Pt found resting bed, did not want to participate in PT. Pt is to d/c today but will check back later if still here in afternoon.
[2022-10-15] MEDS: METOCLOPRAMIDE HCL 5 MG TABLET PO (12:24)
[2022-10-15] MEDS: ACETAMINOPHEN 325 MG TABLET 650 MG PO (12:55)
--- NOTE | 2022-10-15 13:51 | CM.DPNOTE ---
Discharge Planning Note: Patient lives at [facility] in [place], . Called and spoke with Elayne georges and faxed discharge summary, med list and therapy notes. Their phones are not working well. She states glazier supervisor needs to enter the meds into their computer system and until then they cannot be given. Patient's daughter Kristen reinforces this as well. Spoke with Kristen picked the meds up at [facility] and took them to the facility but they cannot be given til in the computer system. This DCP tried repeatedly to call again and the phone disconnects after several rings. Sent her a fax to call me rashid to arrange for them to accept patient and let me know when/if they can administer the medications. Plan: Follow up with [facility] regarding acceptance for discharge today/tomorrow. Daughter Kristen to transport. Cara Fitzgerald RN/DCP
[2022-10-15] MEDS: MAG HYDROX/ALUM/SIMETH 30 ML UDC PO (14:56)
== END 2022-10-15 15:13 | DRG 389 ==
LOC: ED 20:39 → ICU 22:01 → AC 10-10 11:40 → ICU 10-10 11:40 → AC 10-13 15:18
PROVIDERS: Emergency Medicine; Neuromusculoskeletal Medicine, Sports Medicine; Student in an Organized Health Care Education/Training Program; Admitting Provider Nurse Practitioner Family; Emergency Provider Physician Assistant; Referring Provider Physician Assistant; Visit Provider Nurse Practitioner Family
DX: K56.7 Ileus, unspecified (principal); E87.1 Hypo-osmolality and hyponatremia; J81.1 Chronic pulmonary edema; I16.0 Hypertensive urgency; I10 Essential (primary) hypertension; R19.7 Diarrhea, unspecified; T45.4X5A Adverse effect of iron and its compounds, initial encounter; F03.90 Unspecified dementia, unspecified severity, without behavioral disturbance, psychotic disturbance, mood disturbance, and anxiety; K21.9 Gastro-esophageal reflux disease without esophagitis; D50.9 Iron deficiency anemia, unspecified; R11.2 Nausea with vomiting, unspecified; T47.4X5A Adverse effect of other laxatives, initial encounter; E78.5 Hyperlipidemia, unspecified; E11.43 Type 2 diabetes mellitus with diabetic autonomic (poly)neuropathy; K31.84 Gastroparesis; Z79.4 Long term (current) use of insulin; Z79.84 Long term (current) use of oral hypoglycemic drugs; Z66 Do not resuscitate; Z20.822 Contact with and (suspected) exposure to COVID-19
CPT/HCPCS: 36415; 51701; 71046; 74019; 74177; 76705; 80048; 80053; 81003; 82607; 82962; 83036; 83690; 83735; 83880; 83930; 83935; 84300; 84439; 84443; 84484; 85014; 85018; 85025; 85610; 85730; 86850; 86900; 86901; 87086; 87635; 87797; 93005; 93306; 96374; 96375; 97116; 97162; 97165; 97530; 97535; 99232; 99284; C9803; C9113; J0696; J1170; J1650; J1815; J1885; J2270; J3475

== ENCOUNTER 2022-11-07 15:20 | Emergency (ER) | payer MEDICARE, MEDICAID, SELFPAY ==
[2022-10-09 21:22] VITALS: BMI 28.0
[2022-11-07 15:23] VITALS: BP 156/68; PULSE 88; RESP 18; TEMP 36.6; O2SAT 97
--- NOTE | 2022-11-07 16:26 | ED.FEMALEGU ---
HPI - Female Genitourinary <Lisa Null PA-C - Last Filed: 11/07/22 16:49> General Chief complaint: Urogenital-Female Stated complaint: RAW LOWER EXTREMITY Time Seen by Provider: 11/07/22 16:07 Source: patient Mode of arrival: Wheelchair History of Present Illness HPI Narrative: 86-year-old female with past medical history hyperlipidemia, hypertension, hypothyroidism, GERD, osteoporosis, dementia presents to the ED with a few days of vaginal irritation. Patient wears adult diapers for urinary incontinence, lives at the [facility] where they have been applying Desitin to keep the area dry. Patient states that she is has been experiencing some vaginal burning and irritation. Patient denies fever, chills, nausea, vomiting. Patient is accompanied by her daughter who has provided history. Related Data Home Medications Medication Instructions Recorded Confirmed fluoxetine 20 mg capsule 20 mg PO QDAY ##0 01/26/17 10/10/22 gabapentin 300 mg capsule 300 mg PO BID ##0 01/26/17 10/10/22 (Neurontin) insulin aspar prot-insulin aspart See Rx Instructions .Route 01/26/17 10/10/22 100 unit/mL (70-30) subcutaneous .COMPLEX ##0 pen (Novolog Mix 70-30FlexPen U-100) metformin 1,000 mg tablet,extended 1,000 mg PO BID ##0 01/26/17 10/09/22 release 24hr spironolactone 25 mg tablet 25 mg QDAY ##0 01/26/17 10/10/22 insulin degludec 100 unit/mL (3 22 unit SUBCUT DAILY 08/02/21 10/10/22 mL) subcutaneous pen (Tresiba FlexTouch U-100 insulin) ketoconazole 2 % topical cream 1 applic topical DAILY PRN Rash 08/02/21 10/10/22 loratadine 10 mg tablet (Allergy 10 mg PO DAILY 08/02/21 10/10/22 Relief (loratadine)) losartan 25 mg tablet 50 mg PO DAILY #0 tabs 08/02/21 10/09/22 rosuvastatin 10 mg tablet 10 mg PO DAILY 08/02/21 10/10/22 triamcinolone acetonide 0.1 % 1 applic topical DAILY PRN Rash 08/02/21 10/10/22 topical cream Previous Rx's Medication Instructions Recorded pantoprazole 20 mg tablet,delayed 20 mg PO 0600 30 days #30 tabs 10/14/22 release quetiapine 25 mg tablet 12.5 mg PO BEDTIME 30 days #15 tabs 10/14/22 aluminum hydrox-magnesium carb 254 5 ml PO QID PRN dyspepsia #355 mL 10/15/22 mg-237.5 mg/5 mL oral suspension fluconazole 150 mg tablet 150 mg PO Q3D 2 doses #2 tabs 11/07/22 Allergies Allergy/AdvReac Type Severity Reaction Status Date / Time ALONDRA Inhibitors Allergy Verified 11/07/22 15:23 ciprofloxacin Allergy Verified 11/07/22 15:23 Review of Systems <Lisa Null PA-C - Last Filed: 11/07/22 16:49> Review of Systems ROS Unobtainable: All systems reviewed & are unremarkable except as noted in HPI and below Constitutional Constitutional: Denies chills, Denies fatigue, Denies fever(s), Denies frequent falls, Denies lethargy and Denies weakness Eyes Eyes: Denies change in vision, Denies eye discharge, Denies irritation and Denies loss of vision ENT Ears, Nose, Mouth, and Throat: Denies change in voice, Denies dizziness, Denies neck pain, Denies sore throat and Denies throat swelling Cardiovascular Cardiovascular: Denies chest pain, Denies irregular heart rhythm, Denies lightheadedness, Denies palpitations, Denies dyspnea, Denies dyspnea on exertion and Denies orthopnea Respiratory Respiratory: Denies cough, Denies dyspnea, Denies dyspnea on exertion and Denies wheezing Gastrointestinal Gastrointestinal: Denies abdominal pain, Denies change in bowel habits, Denies diarrhea, Denies nausea and Denies vomiting Genitourinary Genitourinary: Denies hematuria, Denies flank pain, Denies urinary incontinence and Denies urinary urgency Comments: Vaginal irritation Musculoskeletal Musculoskeletal: Denies back pain, Denies muscle weakness, Denies neck pain, Denies numbness and Denies tingling Integumentary/Breasts Skin/Breast: Denies pruritus, Denies erythema, Denies rash and Denies wounds Neurologic Neurologic: Denies behavioral changes, Denies confusion, Denies dizziness, Denies frequent falls, Denies loss of vision, Denies numbness, Denies tingling and Denies weakness Psychiatric Psychiatric: Denies anxiety, Denies behavioral changes, Denies confusion, Denies depression, Denies homicidal ideation and Denies suicidal ideation Endocrine Endocrine: Denies fatigue, Denies flushing and Denies palpitations Hematologic/Lymphatic Hematologic/Lymphatic: Denies easy bruising Allergic/Immunologic Allergic/Immunologic: Denies urticaria, Denies throat swelling and Denies wheezing Patient History <Lisa Null PA-C - Last Filed: 11/07/22 16:49> Medical History Dementia GERD (gastroesophageal reflux disease) History of diabetes mellitus, type II Hyperlipidemia Hypertension Hypothyroidism Microcytic anemia Osteoporosis Surgical History History of hysterectomy Family History Father No problems noted. Mother No problems noted. tobacco type: cigarettes Substance Use Type: does not use Exam <Lisa Null PA-C - Last Filed: 11/07/22 16:49> Narrative Exam Narrative: Const General:?cooperative, healthy appearing and comfortable [facility] Head:?normal to inspection Ears:?hearing grossly normal bilaterally Nose:?external nose normal Face and sinus:?normal facial exam and sinuses nontender Mouth:?oral mucosae normal Throat:?posterior oropharynx normal Eyes General:?appearance normal, both eyes and all related structures Neck Neck:?normal visual inspection and no lymphadenopathy noted Resp Effort & Inspection:?normal respiratory effort Auscultation:?clear to auscultation bilaterally Cardio Rate:?regular rate Rhythm:?regular rhythm External genital exam shows vaginal skin appears erythematous, raw. No discharge noted. Neuro General:?patient alert, patient awake and patient oriented x3 Initial Vital Signs Initial Vital Signs: Vital Signs Temperature 97.9 F 11/07/22 15:23 Pulse Rate 88 11/07/22 15:23 Respiratory Rate 18 11/07/22 15:23 Blood Pressure 156/68 H 11/07/22 15:23 Pulse Oximetry 97 11/07/22 15:23 Oxygen Delivery Method Room Air 11/07/22 15:23 <Megan Stephen DO - Last Filed: 11/08/22 07:19> Initial Vital Signs Initial Vital Signs: Vital Signs Temperature 97.9 F 11/07/22 15:23 Pulse Rate 88 11/07/22 15:23 Respiratory Rate 18 11/07/22 15:23 Blood Pressure 156/68 H 11/07/22 15:23 Pulse Oximetry 97 11/07/22 15:23 Oxygen Delivery Method Room Air 11/07/22 15:23 Course <Lisa Null PA-C - Last Filed: 11/07/22 16:49> Orders Ordered: Discontinued Medications Acetaminophen (Acetaminophen 325 Mg Tablet) 975 mg PO NOW ONE Stop: 11/07/22 16:44 Last Admin: 11/07/22 16:48 Dose: 975 mg Documented By: AT Fluconazole (Fluconazole 100 Mg Tablet) 150 mg PO NOW ONE Stop: 11/07/22 16:33 Last Admin: 11/07/22 16:40 Dose: 150 mg Documented By: AT Vital Signs Vital signs: Vital Signs - 8 hr 11/07/22 15:23 Temperature 97.9 F Pulse Rate 88 Respiratory Rate 18 Blood Pressure 156/68 H Pulse Oximetry 97 Oxygen Delivery Method Room Air <Megan Stephen DO - Last Filed: 11/08/22 07:19> Orders Ordered: Discontinued Medications Acetaminophen (Acetaminophen 325 Mg Tablet) 975 mg PO NOW ONE Stop: 11/07/22 16:44 Last Admin: 11/07/22 16:48 Dose: 975 mg Documented By: AT Fluconazole (Fluconazole 100 Mg Tablet) 150 mg PO NOW ONE Stop: 11/07/22 16:33 Last Admin: 11/07/22 16:40 Dose: 150 mg Documented By: AT Vital Signs Vital signs: Vital Signs - 8 hr 11/07/22 15:23 Temperature 97.9 F Pulse Rate 88 Respiratory Rate 18 Blood Pressure 156/68 H Pulse Oximetry 97 Oxygen Delivery Method Room Air MDM - Female Genitourinary <Lisa Null PA-C - Last Filed: 11/07/22 16:49> MDM Narrative Medical decision making narrative: 86-year-old female with past medical history hyperlipidemia, hypertension, hypothyroidism, GERD, osteoporosis, dementia presents to the ED with a few days of vaginal irritation. Concern for vaginal yeast infection versus atrophic vaginitis versus other. Will prescribe fluconazole. First dose of fluconazole given in the ED. Tylenol given for discomfort. Recommend continued use of Desitin. Discussed with patient's daughter that she could follow-up with her PCP for further evaluation and possibly get evaluated for atrophic vaginitis as well. ED return precautions were discussed with patient and patient's daughter. They verbalized understanding. Medical records reviewed: Yes Discharge Plan Departure Patient Disposition: Home Clinical Impression: Vaginal yeast infection Instructions: Vaginal Yeast Infection Activity Restrictions/Additional Instructions: You were evaluated in the ED today for vaginal irritation. You you were given the 1st dose of fluconazole in the ED today. If you still experience symptoms, you may take 1 more dose in 72 hours. Please keep the area clean and dry and continue to use a zinc oxide cream such as Desitin. Please follow-up with your primary care doctor as soon as possible. Return to the ED if your symptoms worsen. Prescriptions: New fluconazole 150 mg tablet 150 mg PO Q3D Qty: 2 0RF No Action loratadine [Allergy Relief (loratadine)] 10 mg tablet 10 mg PO DAILY Tresiba FlexTouch U-100 100 unit/mL (3 mL) insulin pen 22 unit SUBCUT DAILY rosuvastatin 10 mg tablet 10 mg PO DAILY ketoconazole 2 % cream 1 applic topical DAILY PRN (Reason: Rash) triamcinolone acetonide 0.1 % cream 1 applic topical DAILY PRN (Reason: Rash) fluoxetine 20 MG capsule 20 mg PO QDAY Qty: 0 gabapentin [Neurontin] 300 MG capsule 300 mg PO BID Qty: 0 spironolactone 25 MG tablet 25 mg QDAY Qty: 0 insulin asp prt-insulin aspart [Novolog Mix 70-30FlexPen U-100] 100 UNIT/1 ML insulin pen See Rx Instructions .ROUTE .COMPLEX Qty: 0 Rx Instructions: Inject subcutaneously per sliding scale 2 times daily 150-199=2 units, 200-250=3 units, 250-299=4 units, 300 or higher= 5 units metformin 1,000 MG tablet extended release 24hr 1,000 mg PO BID Qty: 0 losartan 25 mg tablet 50 mg PO DAILY Qty: 0 quetiapine 25 mg Tablet 12.5 mg PO BEDTIME 30 Days Qty: 15 0RF pantoprazole 20 mg Tablet,Delayed Release (Dr/Ec) 20 mg PO 0600 30 Days Qty: 30 0RF aluminum hydrox-magnesium carb 254-237.5 mg/5 mL suspension 5 ml PO QID PRN (Reason: dyspepsia) Qty: 355 0RF Rx Instructions: Generic Maalox, 5 mL QID prn dyspepsia Referrals: Miscellaneous,Doctor, MD [Primary Care Provider] - Stand Alone Forms: Patient Portal/API <Megan Stephen DO - Last Filed: 11/08/22 07:19> Cosign ED Attending Suzan Attestation: I was immediately available in the department for consultation. Documentation has been reviewed.
[2022-11-07] MEDS: FLUCONAZOLE 100 MG TABLET 150 MG PO (16:40)
[2022-11-07] MEDS: ACETAMINOPHEN 325 MG TABLET 975 MG PO (16:48)
== END 2022-11-07 16:52 | disposition home or self-care (01) ==
PROVIDERS: Emergency Provider Student in an Organized Health Care Education/Training Program
DX: B37.31 Acute candidiasis of vulva and vagina (principal); Z79.899 Other long term (current) drug therapy
CPT/HCPCS: 99283

== ENCOUNTER 2024-02-12 14:00 | Emergency (ER) | payer MEDICARE, MEDICAID, SELFPAY ==
[2022-10-09 21:22] VITALS: BMI 28.0
[2024-02-12 14:12] VITALS: BP 183/77; PULSE 60; RESP 16; TEMP 37.1; O2SAT 99; BMI 23.1
--- NOTE | 2024-02-12 14:50 | DI.US.S_ITS ---
PROCEDURE: US ABDOMEN LIMITED INDICATIONS: RUQ pain TECHNIQUE: Real-time scanning was performed of the abdominal and retroperitoneal organs, with image documentation. Twenty-four images COMPARISON: , US, US ABDOMEN LIMITED, 10/09/2022, 19:22. FINDINGS: Liver: The liver measures approximately 19.4 cm in CC dimension of the right lobe, with increased diffuse echogenicity commonly hepatic steatosis or other intrinsic hepatic disease increased from the prior exam measured approximately 14 cm. Gallbladder: Gallbladder is distended normally. No gallstones. No ultrasound evidence of gallbladder wall thickening, or pericholecystic fluid. Common bile duct 5 mm within normal limits. Normal is 6-7 mm or less in diameter. Pancreas: Visualized portions of the pancreas are sonographically normal. Miscellaneous: No free abdominal fluid. IMPRESSION: Moderate hepatomegaly with increased echogenicity commonly hepatic steatosis or other intrinsic hepatic disease increased from the prior exam. No gallstones. Common bile duct 5 mm within normal limits. Dictated by: Jimmie Davis M.D. on 02/12/2024 at 15:30 Approved by: Jimmie Davis M.D. on 02/12/2024 at 15:36
[2024-02-12 14:52] LABS: Bacteria Urine Many (>30); Culture Indicated Urine Specimen Cultured; RBC Urine 10-30/HPF (0-5/HPF); Squamous Epithelial Cell Urine 0-1 /HPF (0-5/HPF); Urine Volume 10mL (spun); WBC Urine 30-100/HPF (0-5/HPF)
[2024-02-12 15:08] LABS: Add Manual Diff / Slide Review NO; Basophils Absolute Auto 0 /uL (0-100); Basophils Percent Auto 0.3 % (0-2); Eosinophils Absolute Auto 0 /uL (0-450); Eosinophils Percent Auto 0.7 % (2-4); Hematocrit 29.5 % (36-46); Hemoglobin 10.2 g/dL (12.0-16.0); Lymphocytes Absolute Auto 1000 /uL (1100-4500); Lymphocytes Percent Auto 20.9 % (25-40); Mean Corpuscular HGB Conc 34.5 % (30-36); Mean Corpuscular Hemoglobin 35.3 PG (26-34); Mean Corpuscular Volume 102.2 fL (80-100); Monocytes Absolute Auto 400 /uL (0-900); Monocytes Percent Auto 8.4 % (3-14); Neutrophils Absolute Auto 3300 /uL (1500-7000); Neutrophils Percent Auto 69.7 % (50-75); Platelet Count 271 X10^3/uL (150-400); Red Blood Cell Count 2.89 X10^6/uL (4.0-5.2); Red Cell Distribution Width 14.6 % (11.6-14.8); White Blood Cell Count 4.7 X10^3/uL (4.5-11.0)
[2024-02-12 15:17] LABS: Prothrombin Time 11.2 SECONDS (9.4-12.5)
[2024-02-12 15:20] LABS: PTT Partial Thromboplastin Tim 30 SECONDS (25.1-36.5)
--- NOTE | 2024-02-12 15:20 | ED_ITS ---
HPI - Female Genitourinary <Lisa Null PA-C - Last Filed: 02/12/24 18:51> General Chief complaint: Urogenital-Female Stated complaint: UTI,Back pain Time Seen by Provider: 02/12/24 14:22 Source: patient and family Mode of arrival: Ambulatory History of Present Illness HPI Narrative: 88-year-old female with past medical history hyperlipidemia, hypertension, hypothyroidism, GERD, osteoporosis, dementia is brought in by her daughter for 2 days of dysuria. Patient complains of burning with urination, frequent urination as well as flank pain. Patient denies nausea, vomiting, fever, chills. Denies chest pain, shortness of breath, lightheadedness, dizziness, syncope. Related Data Home Medications Medication Instructions Recorded Confirmed fluoxetine 20 mg capsule 20 mg PO QDAY ##0 01/26/17 10/10/22 gabapentin 300 mg capsule 300 mg PO BID ##0 01/26/17 10/10/22 (Neurontin) insulin aspar prot-insulin aspart See Rx Instructions .Route 01/26/17 10/10/22 100 unit/mL (70-30) subcutaneous .COMPLEX ##0 pen (Novolog Mix 70-30FlexPen U-100) metformin 1,000 mg tablet,extended 1,000 mg PO BID ##0 01/26/17 10/09/22 release 24hr (osmotic) spironolactone 25 mg tablet 25 mg QDAY ##0 01/26/17 10/10/22 insulin degludec 100 unit/mL (3 22 unit SUBCUT DAILY 08/02/21 10/10/22 mL) subcutaneous pen (Tresiba FlexTouch U-100 insulin) ketoconazole 2 % topical cream 1 applic topical DAILY PRN Rash 08/02/21 10/10/22 loratadine 10 mg tablet (Allergy 10 mg PO DAILY 08/02/21 10/10/22 Relief (loratadine)) losartan 25 mg tablet 50 mg PO DAILY #0 tabs 08/02/21 10/09/22 rosuvastatin 10 mg tablet 10 mg PO DAILY 08/02/21 10/10/22 triamcinolone acetonide 0.1 % 1 applic topical DAILY PRN Rash 08/02/21 10/10/22 topical cream Previous Rx's Medication Instructions Recorded aluminum hydrox-magnesium carb 254 5 ml PO QID PRN dyspepsia #355 mL 10/15/22 mg-237.5 mg/5 mL oral suspension fluconazole 150 mg tablet 150 mg PO Q3D 2 doses #2 tabs 11/07/22 cefpodoxime 200 mg tablet 200 mg PO Q12H 14 days #28 tabs 02/12/24 fluconazole 150 mg tablet 150 mg PO Q3D 2 doses #2 tabs 02/12/24 Allergies Allergy/AdvReac Type Severity Reaction Status Date / Time ALONDRA Inhibitors Allergy Verified 11/07/22 15:23 ciprofloxacin Allergy Verified 11/07/22 15:23 Review of Systems <Hyma LORNA Null - Last Filed: 02/12/24 18:51> Constitutional Constitutional: Denies chills, Denies fatigue, Denies fever(s), Denies frequent falls, Denies lethargy and Denies weakness Eyes Eyes: Denies change in vision, Denies eye discharge, Denies irritation and Denies loss of vision ENT Ears, Nose, Mouth, and Throat: Denies change in voice, Denies dizziness, Denies neck pain, Denies sore throat and Denies throat swelling Cardiovascular Cardiovascular: Denies chest pain, Denies irregular heart rhythm, Denies lightheadedness, Denies palpitations, Denies dyspnea, Denies dyspnea on exertion and Denies orthopnea Respiratory Respiratory: Denies cough, Denies dyspnea, Denies dyspnea on exertion and Denies wheezing Gastrointestinal Gastrointestinal: Reports abdominal pain, Denies change in bowel habits, Denies diarrhea, Denies nausea and Denies vomiting Genitourinary Genitourinary: Reports dysuria and Reports urinary urgency Comments: Urinary frequency Musculoskeletal Musculoskeletal: Denies neck pain and Denies numbness Integumentary/Breasts Skin/Breast: Denies pruritus, Denies erythema, Denies rash and Denies wounds Neurologic Neurologic: Denies behavioral changes, Denies confusion, Denies dizziness, Denies frequent falls, Denies loss of vision, Denies numbness and Denies weakness Psychiatric Psychiatric: Denies anxiety, Denies behavioral changes, Denies confusion, Denies depression, Denies homicidal ideation and Denies suicidal ideation Endocrine Endocrine: Denies fatigue, Denies flushing and Denies palpitations Hematologic/Lymphatic Hematologic/Lymphatic: Denies easy bruising Allergic/Immunologic Allergic/Immunologic: Denies urticaria, Denies throat swelling and Denies wheezing Patient History <Hyma Chaka, PA-C - Last Filed: 02/12/24 18:51> Medical History History of diabetes mellitus, type II Microcytic anemia Hyperlipidemia Hypertension Hypothyroidism GERD (gastroesophageal reflux disease) Osteoporosis Dementia Surgical History History of hysterectomy Family History Father No problems noted. Mother No problems noted. tobacco type: cigarettes Substance Use Type: does not use Exam <Lisa Null PA-C - Last Filed: 02/12/24 18:51> Narrative Exam Narrative: Const General:?cooperative, healthy appearing and comfortable HENGA Head:?normal to inspection Ears:?hearing grossly normal bilaterally Nose:?external nose normal Face and sinus:?normal facial exam and sinuses nontender Mouth:?oral mucosae normal Throat:?posterior oropharynx normal Eyes General:?appearance normal, both eyes and all related structures Neck Neck:?normal visual inspection and no lymphadenopathy noted Resp Effort & Inspection:?normal respiratory effort Auscultation:?clear to auscultation bilaterally Cardio Rate:?regular rate Rhythm:?regular rhythm GI Abdomen is soft, nondistended. Abdomen is tender to palpation in the right upper quadrant. There is no CVA tenderness. Neuro General:?patient alert, patient awake and patient oriented x3 Initial Vital Signs Initial Vital Signs: Vital Signs Temperature 98.8 F 02/12/24 14:12 Pulse Rate 60 02/12/24 14:12 Respiratory Rate 16 02/12/24 14:12 Blood Pressure 183/77 H 02/12/24 14:12 Pulse Oximetry 99 02/12/24 14:12 Oxygen Delivery Method Room Air 02/12/24 14:12 <Everardo Moreno DO - Last Filed: 02/12/24 18:53> Initial Vital Signs Initial Vital Signs: Vital Signs Temperature 98.8 F 02/12/24 14:12 Pulse Rate 60 02/12/24 14:12 Respiratory Rate 16 02/12/24 14:12 Blood Pressure 183/77 H 02/12/24 14:12 Pulse Oximetry 99 02/12/24 14:12 Oxygen Delivery Method Room Air 02/12/24 14:12 Course <Lisa Null PA-C - Last Filed: 02/12/24 18:51> Orders Ordered: ED Orders 02/12/24 14:36 Urine Culture Stat Urine Microscopic Stat 02/12/24 14:50 US abdomen limited Stat 02/12/24 15:00 CBC Auto Diff [Complete Blood Count AUTO DIFF] Stat CMP [Comprehensive Metabolic Panel] Stat Lipase Stat PT [Prothrombin Time INR] Stat PTT [PTT Partial Thromboplastin [place]] Stat 02/12/24 15:21 CT abdomen pelvis w con Stat Discontinued Medications Sodium Chloride (Normal Saline 0.9%) 1,000 mls @ 1,000 mls/hr IV BOLUS ONE Stop: 02/12/24 16:47 Last Infusion: 02/12/24 16:51 Dose: Infused Documented By: Admin: 02/12/24 16:00 Dose: 1,000 mls/hr Documented By: FLORINDA Vital Signs Vital signs: Vital Signs - 8 hr 02/12/24 14:12 02/12/24 16:51 Temperature 98.8 F Pulse Rate 60 62 Respiratory Rate 16 16 Blood Pressure 183/77 H 178/72 H Pulse Oximetry 99 97 Oxygen Delivery Method Room Air Room Air <Everardo Moreno DO - Last Filed: 02/12/24 18:53> Orders Ordered: ED Orders 02/12/24 14:36 Urine Culture Stat Urine Microscopic Stat 02/12/24 14:50 US abdomen limited Stat 02/12/24 15:00 CBC Auto Diff [Complete Blood Count AUTO DIFF] Stat CMP [Comprehensive Metabolic Panel] Stat Lipase Stat PT [Prothrombin Time INR] Stat PTT [PTT Partial Thromboplastin [place]] Stat 02/12/24 15:21 CT abdomen pelvis w con Stat Discontinued Medications Sodium Chloride (Normal Saline 0.9%) 1,000 mls @ 1,000 mls/hr IV BOLUS ONE Stop: 02/12/24 16:47 Last Infusion: 02/12/24 16:51 Dose: Infused Documented By: Admin: 02/12/24 16:00 Dose: 1,000 mls/hr Documented By: CTS Vital Signs Vital signs: Vital Signs - 8 hr 02/12/24 14:12 02/12/24 16:51 Temperature 98.8 F Pulse Rate 60 62 Respiratory Rate 16 16 Blood Pressure 183/77 H 178/72 H Pulse Oximetry 99 97 Oxygen Delivery Method Room Air Room Air MDM - Female Genitourinary <Lisa Null PA-C - Last Filed: 02/12/24 18:51> Lab Data 02/12/24 15:00 02/12/24 15:00 Labs: Lab Results 02/12/24 02/12/24 Range/Units 14:36 15:00 WBC 4.7 (4.5-11.0) X10^3/uL RBC 2.89 L (4.0-5.2) X10^6/uL Hgb 10.2 L (12.0-16.0) g/dL Hct 29.5 L (36-46) % MCV 102.2 H (80-100) fL MCH 35.3 H (26-34) PG MCHC 34.5 (30-36) % RDW 14.6 (11.6-14.8) % Plt Count 271 (150-400) X10^3/uL Neut % (Auto) 69.7 (50-75) % Lymph % (Auto) 20.9 L (25-40) % [place] % (Auto) 8.4 (3-14) % Eos % (Auto) 0.7 L (2-4) % Baso % (Auto) 0.3 (0-2) % Neut # (Auto) 3300 (5706-3500) /uL Lymph # (Auto) 1000 L (2279-1213) /uL [place] # (Auto) 400 (0-900) /uL Eos # (Auto) 0 (0-450) /uL Baso # (Auto) 0 (0-100) /uL PT 11.2 (9.4-12.5) SECONDS INR 1.0 (0.9-1.3) APTT 30 (25.1-36.5) SECONDS Sodium 124 L (137-145) mmol/L Potassium 4.3 (3.4-5.1) mmol/L Chloride 94 L (98-107) mmol/L Carbon Dioxide 23 (22-32) mmol/L BUN 15 (7-17) mg/dL Creatinine 0.62 (0.52-1.04) mg/dL Estimated GFR > 60 (>60) mL/min BUN/Creatinine Ratio 24.2 H (6-22) Glucose 188 H (80-110) mg/dL Calcium 8.7 (8.4-10.2) mg/dL Total Bilirubin 0.4 (0.2-1.3) mg/dL AST 21 (14-36) IU/L ALT 14 (<35) IU/L Alkaline Phosphatase 78 (38-126) U/L Total Protein 7.7 (6.3-8.2) g/dL Albumin 3.8 (3.5-5.0) g/dL Globulin 3.9 (1.7-4.1) g/dL Albumin/Globulin Ratio 1.0 (1.0-2.8) Lipase 122 (23-300) U/L Urine RBC 10-30/hpf H (0-5/HPF) Urine WBC 30-100/hpf H (0-5/HPF) Ur Squamous Epith Cells 0-1 /hpf (0-5/HPF) Urine Bacteria Many (>30) H (None) Ur Culture Indicated? Specimen cultured Vol Urine Centrifuged 10ml (spun) Urine Dip Bedside Urine Glucose Negative Bedside Urine Bilirubin - Negative Bedside Urine Ketone - Negative Urine Specific [place] 1.015 Bedside Urine Occult Blood - Negative Bedside Urine pH 6.0 Bedside Urine Protein +/- 15 Bedside Urine Urobilinogen - Negative Bedside Urine Nitrite + Positive Bedside Urine Leukocytes +++ 500 Esterase MDM Narrative Medical decision making narrative: 88-year-old female with past medical history hyperlipidemia, hypertension, hypothyroidism, GERD, osteoporosis, dementia is brought in by her daughter for 2 days of dysuria. UA is positive for UTI. Part way through the ED encounter, patient complained of right upper quadrant pain. Patient was tender to palpation in the right upper quadrant. Labs and ultrasound were obtained. Labs obtained with sodium at 124, corrected to 125 to account for hyperglycemia. It appears that patient has a chronic hyponatremia. Glucose elevated to 188. Patient is not symptomatic today. Labs otherwise unremarkable. Ultrasound showed moderate hepatomegaly with increased echogenicity commonly hepatic steatosis or other intrinsic hepatic disease increased from the prior exam. No gallstones. Common bile duct 5 mm within normal limits. CT abdomen pelvis was obtained to rule out nephrolithiasis and other intra- abdominal pathologies. No CT evidence of pyelonephritis or urolithiasis. There is a large colonic stool load. Patient was also given 500 mL of normal saline. Discussed findings with patient and patient's daughter. Prescribed antibiotics. Also prescribed fluconazole since patient has a tendency to develop yeast infections with antibiotics. Recommend MiraLax for bowel regimen. Patient may take azo for the next 2-3 days for dysuria. ED return precautions were discussed with patient and patient's daughter. They verbalized understanding. Medical records reviewed: Yes <Everardo Moreno, DO - Last Filed: 02/12/24 18:53> Lab Data Labs: Lab Results 02/12/24 02/12/24 Range/Units 14:36 15:00 WBC 4.7 (4.5-11.0) X10^3/uL RBC 2.89 L (4.0-5.2) X10^6/uL Hgb 10.2 L (12.0-16.0) g/dL Hct 29.5 L (36-46) % MCV 102.2 H (80-100) fL MCH 35.3 H (26-34) PG MCHC 34.5 (30-36) % RDW 14.6 (11.6-14.8) % Plt Count 271 (150-400) X10^3/uL Neut % (Auto) 69.7 (50-75) % Lymph % (Auto) 20.9 L (25-40) % [place] % (Auto) 8.4 (3-14) % Eos % (Auto) 0.7 L (2-4) % Baso % (Auto) 0.3 (0-2) % Neut # (Auto) 3300 (4632-8545) /uL Lymph # (Auto) 1000 L (4057-5471) /uL [place] # (Auto) 400 (0-900) /uL Eos # (Auto) 0 (0-450) /uL Baso # (Auto) 0 (0-100) /uL PT 11.2 (9.4-12.5) SECONDS INR 1.0 (0.9-1.3) APTT 30 (25.1-36.5) SECONDS Sodium 124 L (137-145) mmol/L Potassium 4.3 (3.4-5.1) mmol/L Chloride 94 L (98-107) mmol/L Carbon Dioxide 23 (22-32) mmol/L BUN 15 (7-17) mg/dL Creatinine 0.62 (0.52-1.04) mg/dL Estimated GFR > 60 (>60) mL/min BUN/Creatinine Ratio 24.2 H (6-22) Glucose 188 H (80-110) mg/dL Calcium 8.7 (8.4-10.2) mg/dL Total Bilirubin 0.4 (0.2-1.3) mg/dL AST 21 (14-36) IU/L ALT 14 (<35) IU/L Alkaline Phosphatase 78 (38-126) U/L Total Protein 7.7 (6.3-8.2) g/dL Albumin 3.8 (3.5-5.0) g/dL Globulin 3.9 (1.7-4.1) g/dL Albumin/Globulin Ratio 1.0 (1.0-2.8) Lipase 122 (23-300) U/L Urine RBC 10-30/hpf H (0-5/HPF) Urine WBC 30-100/hpf H (0-5/HPF) Ur Squamous Epith Cells 0-1 /hpf (0-5/HPF) Urine Bacteria Many (>30) H (None) Ur Culture Indicated? Specimen cultured Vol Urine Centrifuged 10ml (spun) Urine Dip Bedside Urine Glucose Negative Bedside Urine Bilirubin - Negative Bedside Urine Ketone - Negative Urine Specific [place] 1.015 Bedside Urine Occult Blood - Negative Bedside Urine pH 6.0 Bedside Urine Protein +/- 15 Bedside Urine Urobilinogen - Negative Bedside Urine Nitrite + Positive Bedside Urine Leukocytes +++ 500 Esterase MDM Narrative Medical decision making narrative: 88-year-old female with past medical history hyperlipidemia, hypertension, hypothyroidism, GERD, osteoporosis, dementia is brought in by her daughter for 2 days of dysuria. UA is positive for UTI. Part way through the ED encounter, patient complained of right upper quadrant pain. Patient was tender to palpation in the right upper quadrant. Labs and ultrasound were obtained. Labs obtained with sodium at 124, corrected to 125 to account for hyperglycemia. It appears that patient has a chronic hyponatremia. Glucose elevated to 188. Patient is not symptomatic today. Labs otherwise unremarkable. Ultrasound showed moderate hepatomegaly with increased echogenicity commonly hepatic steatosis or other intrinsic hepatic disease increased from the prior exam. No gallstones. Common bile duct 5 mm within normal limits. CT abdomen pelvis was obtained to rule out nephrolithiasis and other intra- abdominal pathologies. No CT evidence of pyelonephritis or urolithiasis. There is a large colonic stool load. Patient was also given 500 mL of normal saline. Discussed findings with patient and patient's daughter. Prescribed antibiotics. Also prescribed fluconazole since patient has a tendency to develop yeast infections with antibiotics. Recommend MiraLax for bowel regimen. Patient may take azo for the next 2-3 days for dysuria. ED return precautions were discussed with patient and patient's daughter. They verbalized understanding. Medical records reviewed: Yes Dr. Moreno: I was immediately available in the department for consultation. Documentation has been reviewed. I agree with assessment and plan. Discharge Plan Departure Patient Disposition: Home Clinical Impression: UTI (urinary tract infection) Qualifiers: Urinary tract infection type: acute cystitis Hematuria presence: with hematuria Qualified Code(s): N30.01 - Acute cystitis with hematuria Instructions: DI for Urinary Tract Infection (UTI) Activity Restrictions/Additional Instructions: You were evaluated in the ED today for painful urination. Your urine was positive for a urinary tract infection. You are being prescribed antibiotics for 2 weeks. You were also being prescribed fluconazole to avoid a yeast infection due to the antibiotics. You may take azo for the next 3 days for urinary discomfort. You may also take MiraLax for constipation nightly. Return to the ED if you have worsening symptoms, fever, chills, persistent vomiting, abdominal pain. To the staff of [facility]: Patient Awilda Lincoln has been prescribed the follwoing medications that need to be adminsitered to her as follows: 1. Cefpodoxime 200 mg tablet by mouth every 12 hours for 14 days. 2. 150 mg of fluconazole by mouth once today. Please give 2nd dose of 150 mg of fluconazole by mouth 72 hours after the 1st dose. 3. Patient to be given azo package directions for 3 days. 4. Patient to be given MiraLax nightly per package directions for the next 2 weeks. Prescriptions: New cefpodoxime 200 mg tablet 200 mg PO Q12H 14 Days Qty: 28 0RF Rx Instructions: must administer with a meal/food fluconazole 150 mg tablet 150 mg PO Q3D Qty: 2 0RF Rx Instructions: may repeat second dose 72 hrs after first dose if symptoms persist No Action loratadine [Allergy Relief (loratadine)] 10 mg tablet 10 mg PO DAILY Tresiba FlexTouch U-100 100 unit/mL (3 mL) insulin pen 22 unit SUBCUT DAILY rosuvastatin 10 mg tablet 10 mg PO DAILY ketoconazole 2 % cream 1 applic topical DAILY PRN (Reason: Rash) triamcinolone acetonide 0.1 % cream 1 applic topical DAILY PRN (Reason: Rash) fluoxetine 20 MG capsule 20 mg PO QDAY Qty: 0 gabapentin [Neurontin] 300 MG capsule 300 mg PO BID Qty: 0 spironolactone 25 MG tablet 25 mg QDAY Qty: 0 insulin asp prt-insulin aspart [Novolog Mix 70-30FlexPen U-100] 100 UNIT/1 ML insulin pen See Rx Instructions .ROUTE .COMPLEX Qty: 0 Rx Instructions: Inject subcutaneously per sliding scale 2 times daily 150-199=2 units, 200- 250=3 units, 250-299=4 units, 300 or higher= 5 units metformin 1,000 MG tablet extended release 24hr 1,000 mg PO BID Qty: 0 losartan 25 mg tablet 50 mg PO DAILY Qty: 0 aluminum hydrox-magnesium carb 254-237.5 mg/5 mL suspension 5 ml PO QID PRN (Reason: dyspepsia) Qty: 355 0RF Rx Instructions: Generic Maalox, 5 mL QID prn dyspepsia fluconazole 150 mg tablet 150 mg PO Q3D Qty: 2 0RF Referrals: David Hassan MD [Primary Care Provider] - Stand Alone Forms: Patient Portal/API
--- NOTE | 2024-02-12 15:21 | DI.CT.S_ITS ---
PROCEDURE: CT ABDOMEN PELVIS W CON INDICATIONS: RUQ pain, uti TECHNIQUE: After the administration of intravenous contrast, axial sections acquired from the lung bases to the pubic symphysis. Coronal and sagittal reformats were performed. For radiation dose reduction, the following was used: automated exposure control, adjustment of mA and/or kV according to patient size. COMPARISON: [facility], CT, CT ABDOMEN PELVIS W CON, 10/11/2022, 17:14. FINDINGS: Image quality: Diagnostic. Lower Chest: Calcified granuloma. ABDOMEN: Liver: No solid mass. Gallbladder: No radiopaque gallstones or wall thickening. Biliary ducts: No biliary dilation. Pancreas: No ductal dilation. Spleen: Size is within normal limits. Adrenal Glands: No adrenal nodules. Kidneys and Ureters: No hydronephrosis. No solid mass. No complex renal cystic lesion which requires follow up. Symmetric enhancement. Stomach and Bowel: Normal colonic caliber, without significant wall thickening. Large colonic stool load. No significant diverticular disease. Peritoneum: No abnormal intraperitoneal fluid. No free air. Ventral Wall: No significant ventral hernia. Prior hernia repair. Abdominal Nodes: No retroperitoneal or mesenteric adenopathy by size criteria. Vessels: Aorta and inferior vena cava are normal in size. PELVIS: Pelvic Organs: Unremarkable. Bladder: No bladder wall thickening, accounting for underdistention. Pelvic Nodes: No enlarged lymph nodes. Miscellaneous: No inguinal hernias are seen. Bones: No aggressive osseous abnormality. Degenerative disc disease of the lumbar spine. Convex right scoliosis centered at L4. IMPRESSION: No CT evidence of pyelonephritis. Large colonic stool load. Dictated by: Maxwell Hernandez M.D. on 02/12/2024 at 16:05 Approved by: Maxwell Hernandez M.D. on 02/12/2024 at 16:09
[2024-02-12 15:22] LABS: Alanine Aminotransferase 14 IU/L (<35); Albumin 3.8 g/dL (3.5-5.0); Alkaline Phosphatase 78 U/L (38-126); Aspartate Aminotransferase 21 IU/L (14-36); BUN Creatinine Ratio 24.2 (6-22); Bilirubin Total 0.4 mg/dL (0.2-1.3); Blood Urea Nitrogen 15 mg/dL (7-17); Calcium 8.7 mg/dL (8.4-10.2); Carbon Dioxide 23 mmol/L (22-32); Chloride 94 mmol/L (98-107); Estimated Glomerular Filt Rate > 60 mL/min (>60); Globulin 3.9 g/dL (1.7-4.1); Glucose 188 mg/dL (80-110); HEMOLYSIS < 15 (0-50); Lipase 122 U/L (23-300); Potassium 4.3 mmol/L (3.4-5.1); Sodium 124 mmol/L (137-145); Total Protein 7.7 g/dL (6.3-8.2)
[2024-02-12] MEDS: SODIUM CHLORIDE 0.9% 1,000 ML 1000 ML IV (16:00)
[2024-02-12 16:51] VITALS: BP 178/72; PULSE 62; RESP 16; O2SAT 97
== END 2024-02-12 16:52 | disposition home or self-care (01) ==
PROVIDERS: Emergency Provider Student in an Organized Health Care Education/Training Program; PCP Family Medicine
DX: N30.01 Acute cystitis with hematuria (principal); R10.9 Unspecified abdominal pain; E78.5 Hyperlipidemia, unspecified; I10 Essential (primary) hypertension; E03.9 Hypothyroidism, unspecified; K21.9 Gastro-esophageal reflux disease without esophagitis; M81.0 Age-related osteoporosis without current pathological fracture; F03.90 Unspecified dementia, unspecified severity, without behavioral disturbance, psychotic disturbance, mood disturbance, and anxiety; Z79.899 Other long term (current) drug therapy; R10.11 Right upper quadrant pain; R16.0 Hepatomegaly, not elsewhere classified; E11.65 Type 2 diabetes mellitus with hyperglycemia; Z79.4 Long term (current) use of insulin
CPT/HCPCS: 36415; 74177; 76705; 80053; 81003; 81015; 83690; 85025; 85610; 85730; 87077; 87086; 87186; 96360; 99284

== ENCOUNTER 2024-06-09 15:31 | Emergency (ER) | payer MEDICARE, MEDICAID, SELFPAY ==
[2022-10-09 21:22] VITALS: BMI 28.0
[2024-06-09] VITALS (7 sets, daily range): BP systolic 134–242; BP diastolic 77–165; PULSE 67–77; RESP 18–36; TEMP 36.7; O2SAT 97–100; BMI 26.1
--- NOTE | 2024-06-09 15:54 | DI.RAD.S_ITS ---
PROCEDURE: XR CHEST 1V INDICATIONS: chest pain TECHNIQUE: One view of the chest was acquired. COMPARISON: [facility], CT, CT ANGIO CHEST PE, 06/02/2024, 17:32. [facility], CR, XR CHEST 1 VIEW, 06/02/2024, 16:11. [facility], CR, XR CHEST 2V, 10/09/2022, 21:10. FINDINGS: Surgical changes and devices: None. Lungs and pleura: On this semiupright portable chest examination, no large pneumothorax or large pleural effusions are seen. No focal infiltrates are seen. Low lung volumes are noted. This causes a crowded appearance to the lung markings and limits evaluation. Mediastinum: The cardiac contours are within normal limits. The aorta demonstrates calcification and tortuosity. Bones and chest wall: No suspicious bony lesions. Age-appropriate bony degenerative changes are seen. Overlying soft tissues appear unremarkable. IMPRESSION: Limited portable chest examination, without a significant cardiopulmonary abnormality identified. Dictated by: Sree Canchola M.D. on 06/09/2024 at 15:30 Approved by: Sree Canchola M.D. on 06/09/2024 at 15:31
--- NOTE | 2024-06-09 15:56 | EKG_ITS ---
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
[2024-06-09 16:33] LABS: Add Manual Diff / Slide Review NO; Basophils Absolute Auto 0 /uL (0-100); Basophils Percent Auto 0.2 % (0-2); Eosinophils Absolute Auto 0 /uL (0-450); Eosinophils Percent Auto 0.8 % (2-4); Hematocrit 29.7 % (36-46); Hemoglobin 10.2 g/dL (12.0-16.0); INR 1.1 (0.9-1.3); Lymphocytes Absolute Auto 800 /uL (1100-4500); Lymphocytes Percent Auto 14.8 % (25-40); Mean Corpuscular HGB Conc 34.4 % (30-36); Mean Corpuscular Hemoglobin 35.4 PG (26-34); Mean Corpuscular Volume 103.1 fL (80-100); Monocytes Absolute Auto 300 /uL (0-900); Monocytes Percent Auto 6.2 % (3-14); Neutrophils Absolute Auto 4300 /uL (1500-7000); Platelet Count 292 X10^3/uL (150-400); Prothrombin Time 11.9 SECONDS (9.4-12.5); Red Blood Cell Count 2.88 X10^6/uL (4.0-5.2); Red Cell Distribution Width 14.1 % (11.6-14.8); White Blood Cell Count 5.6 X10^3/uL (4.5-11.0)
[2024-06-09 16:35] LABS: PTT Partial Thromboplastin Tim 33 SECONDS (25.1-36.5)
[2024-06-09 16:39] LABS: Alanine Aminotransferase 21 IU/L (<35); Albumin 4.2 g/dL (3.5-5.0); Albumin Globulin Ratio 1.1 (1.0-2.8); Alkaline Phosphatase 127 U/L (38-126); Aspartate Aminotransferase 28 IU/L (14-36); BUN Creatinine Ratio 21.1 (6-22); Bilirubin Total 0.3 mg/dL (0.2-1.3); Blood Urea Nitrogen 15 mg/dL (7-17); Carbon Dioxide 25 mmol/L (22-32); Chloride 97 mmol/L (98-107); Creatine Kinase 40 U/L (30-135); Estimated Glomerular Filt Rate > 60 mL/min (>60); Globulin 3.9 g/dL (1.7-4.1); Glucose 252 mg/dL (80-110); HEMOLYSIS < 15 (0-50); Lipase 126 U/L (23-300); Magnesium 1.3 mg/dL (1.6-2.3); Potassium 4.2 mmol/L (3.4-5.1); Sodium 130 mmol/L (137-145); Total Protein 8.1 g/dL (6.3-8.2)
[2024-06-09 16:51] LABS: NT-proBNP (BNP-Adult 18+) 614 pg/mL (<450); Troponin I < 0.012 ng/mL (0.01-0.034)
--- NOTE | 2024-06-09 17:51 | ED.CHESTPAIN ---
HPI - Chest Pain General Chief Complaint: Chest Pain Stated Complaint: tightness in back,pain in back comingaroundtochest Time Seen by Provider: 06/09/24 16:01 Source: family Mode of arrival: Wheelchair Limitations: other Related Data Home Medications Medication Instructions Recorded Confirmed fluoxetine 20 mg capsule 20 mg PO QDAY ##0 01/26/17 10/10/22 gabapentin 300 mg capsule 300 mg PO BID ##0 01/26/17 10/10/22 (Neurontin) insulin aspar prot-insulin aspart See Rx Instructions .Route 01/26/17 10/10/22 100 unit/mL (70-30) subcutaneous .COMPLEX ##0 pen (Novolog Mix 70-30FlexPen U-100) metformin 1,000 mg tablet,extended 1,000 mg PO BID ##0 01/26/17 10/09/22 release 24hr (osmotic) spironolactone 25 mg tablet 25 mg QDAY ##0 01/26/17 10/10/22 insulin degludec 100 unit/mL (3 22 unit SUBCUT DAILY 08/02/21 10/10/22 mL) subcutaneous pen (Tresiba FlexTouch U-100 insulin) ketoconazole 2 % topical cream 1 applic topical DAILY PRN Rash 08/02/21 10/10/22 loratadine 10 mg tablet (Allergy 10 mg PO DAILY 08/02/21 10/10/22 Relief (loratadine)) losartan 25 mg tablet 50 mg PO DAILY #0 tabs 08/02/21 10/09/22 rosuvastatin 10 mg tablet 10 mg PO DAILY 08/02/21 10/10/22 triamcinolone acetonide 0.1 % 1 applic topical DAILY PRN Rash 08/02/21 10/10/22 topical cream Previous Rx's Medication Instructions Recorded aluminum hydrox-magnesium carb 254 5 ml PO QID PRN dyspepsia #355 mL 10/15/22 mg-237.5 mg/5 mL oral suspension fluconazole 150 mg tablet 150 mg PO Q3D 2 doses #2 tabs 11/07/22 fluconazole 150 mg tablet 150 mg PO Q3D 2 doses #2 tabs 02/12/24 Allergies Allergy/AdvReac Type Severity Reaction Status Date / Time ALONDRA Inhibitors Allergy Verified 11/07/22 15:23 ciprofloxacin Allergy Verified 11/07/22 15:23 Patient History Medical History History of diabetes mellitus, type II Microcytic anemia Hyperlipidemia Hypertension Hypothyroidism GERD (gastroesophageal reflux disease) Osteoporosis Dementia Surgical History History of hysterectomy Family History Father No problems noted. Mother No problems noted. Social History household members: none Smoking Status: Never smoker Smoking Status: Never smoker tobacco type: cigarettes Exam Initial Vital Signs Initial Vital Signs: Vital Signs Temperature 98.0 F 06/09/24 16:16 Pulse Rate 70 06/09/24 16:16 Respiratory Rate 18 06/09/24 16:16 Blood Pressure 134/86 06/09/24 16:16 Pulse Oximetry 97 06/09/24 16:16 Oxygen Delivery Method Room Air 06/09/24 16:16 Course Orders Ordered: ED Orders 06/09/24 15:47 EKG-12 Lead Stat 06/09/24 15:54 XR chest 1V Stat EKG-12 Lead Stat 06/09/24 16:12 Complete Blood Count AUTO DIFF Stat Comprehensive Metabolic Panel Stat Lipase Stat Magnesium Stat NT-proBNP (BNP-Adult 18+) Stat PTT Partial Thromboplastin [place] Stat Prothrombin Time INR Stat Troponin & CK Cardiac Panel Stat Vital Signs Vital signs: Vital Signs - 8 hr 06/09/24 16:16 06/09/24 17:26 06/09/24 17:28 Temperature 98.0 F Pulse Rate 70 74 Respiratory Rate 18 28 H Blood Pressure 134/86 175/79 H Pulse Oximetry 97 100 Oxygen Delivery Method Room Air 06/09/24 17:28 06/09/24 17:30 06/09/24 17:30 Temperature Pulse Rate 69 67 Respiratory Rate 25 H 36 H Blood Pressure 165/77 H Pulse Oximetry 97 98 Oxygen Delivery Method MDM - Chest Pain Lab Data 06/09/24 16:12 06/09/24 16:12 Labs: Lab Results 06/09/24 Range/Units 16:12 WBC 5.6 (4.5-11.0) X10^3/uL RBC 2.88 L (4.0-5.2) X10^6/uL Hgb 10.2 L (12.0-16.0) g/dL Hct 29.7 L (36-46) % MCV 103.1 H (80-100) fL MCH 35.4 H (26-34) PG MCHC 34.4 (30-36) % RDW 14.1 (11.6-14.8) % Plt Count 292 (150-400) X10^3/uL Neut % (Auto) 78.0 H (50-75) % Lymph % (Auto) 14.8 L (25-40) % [place] % (Auto) 6.2 (3-14) % Eos % (Auto) 0.8 L (2-4) % Baso % (Auto) 0.2 (0-2) % Neut # (Auto) 4300 (1579-7055) /uL Lymph # (Auto) 800 L (6754-7160) /uL [place] # (Auto) 300 (0-900) /uL Eos # (Auto) 0 (0-450) /uL Baso # (Auto) 0 (0-100) /uL PT 11.9 (9.4-12.5) SECONDS INR 1.1 (0.9-1.3) APTT 33 (25.1-36.5) SECONDS Sodium 130 L (137-145) mmol/L Potassium 4.2 (3.4-5.1) mmol/L Chloride 97 L (98-107) mmol/L Carbon Dioxide 25 (22-32) mmol/L BUN 15 (7-17) mg/dL Creatinine 0.71 (0.52-1.04) mg/dL Estimated GFR > 60 (>60) mL/min BUN/Creatinine Ratio 21.1 (6-22) Glucose 252 H (80-110) mg/dL Calcium 9.0 (8.4-10.2) mg/dL Magnesium 1.3 L (1.6-2.3) mg/dL Total Bilirubin 0.3 (0.2-1.3) mg/dL AST 28 (14-36) IU/L ALT 21 (<35) IU/L Alkaline Phosphatase 127 H (38-126) U/L Total Creatine Kinase 40 (30-135) U/L Troponin I < 0.012 (0.01-0.034) ng/mL NT-Pro-B Natriuret Pep 614 H (<450) pg/mL Total Protein 8.1 (6.3-8.2) g/dL Albumin 4.2 (3.5-5.0) g/dL Globulin 3.9 (1.7-4.1) g/dL Albumin/Globulin Ratio 1.1 (1.0-2.8) Lipase 126 (23-300) U/L Urine Dip Bedside Urine Glucose Negative Bedside Urine Bilirubin - Negative Bedside Urine Ketone - Negative Urine Specific [place] 1.010 Bedside Urine Occult Blood - Negative Bedside Urine pH 6.5 Bedside Urine Protein - Negative Bedside Urine Urobilinogen - Negative Bedside Urine Nitrite - Negative Bedside Urine Leukocytes - Negative Esterase Discharge Plan Departure Patient Disposition: Home Clinical Impression: Chest pain Qualifiers: Chest pain type: other chest pain Qualified Code(s): R07.89 - Other chest pain Dementia Qualifiers: Dementia type: Alzheimer's Alzheimer's disease onset: unspecified onset Dementia severity: moderate Instructions: DI for Atypical Chest Pain Activity Restrictions/Additional Instructions: Thank you for coming in today Your workup does not suggest evidence of another heart attack. I do not know how to explain the squeezing bilateral chest pain that you had however with instructions after your recent discharge from [facility] last week the recommendation was to try nitroglycerin. I think this would be reasonable if you have recurrent episodes of this pain. Currently it seem like you are doing well, you are pain-free I am seeing no indications that you need to stay in the hospital. If you find that you are getting worse or develop any new symptoms, please feel free to return to the emergency department for further evaluation. Prescriptions: No Action loratadine [Allergy Relief (loratadine)] 10 mg tablet 10 mg PO DAILY Tresiba FlexTouch U-100 100 unit/mL (3 mL) insulin pen 22 unit SUBCUT DAILY rosuvastatin 10 mg tablet 10 mg PO DAILY ketoconazole 2 % cream 1 applic topical DAILY PRN (Reason: Rash) triamcinolone acetonide 0.1 % cream 1 applic topical DAILY PRN (Reason: Rash) fluoxetine 20 MG capsule 20 mg PO QDAY Qty: 0 gabapentin [Neurontin] 300 MG capsule 300 mg PO BID Qty: 0 spironolactone 25 MG tablet 25 mg QDAY Qty: 0 insulin asp prt-insulin aspart [Novolog Mix 70-30FlexPen U-100] 100 UNIT/1 ML insulin pen See Rx Instructions .ROUTE .COMPLEX Qty: 0 Rx Instructions: Inject subcutaneously per sliding scale 2 times daily 150-199=2 units, 200-250=3 units, 250-299=4 units, 300 or higher= 5 units metformin 1,000 MG tablet extended release 24hr 1,000 mg PO BID Qty: 0 losartan 25 mg tablet 50 mg PO DAILY Qty: 0 aluminum hydrox-magnesium carb 254-237.5 mg/5 mL suspension 5 ml PO QID PRN (Reason: dyspepsia) Qty: 355 0RF Rx Instructions: Generic Maalox, 5 mL QID prn dyspepsia fluconazole 150 mg tablet 150 mg PO Q3D Qty: 2 0RF fluconazole 150 mg tablet 150 mg PO Q3D Qty: 2 0RF Rx Instructions: may repeat second dose 72 hrs after first dose if symptoms persist Referrals: David Hassan MD [Primary Care Provider] - Stand Alone Forms: Patient Portal/API/Survey
== END 2024-06-09 18:16 | disposition home or self-care (01) ==
PROVIDERS: Emergency Provider Emergency Medicine; PCP Family Medicine
DX: R07.89 Other chest pain (principal); G30.9 Alzheimer's disease, unspecified; F02.B0 Dementia in other diseases classified elsewhere, moderate, without behavioral disturbance, psychotic disturbance, mood disturbance, and anxiety; I44.7 Left bundle-branch block, unspecified; I44.0 Atrioventricular block, first degree
CPT/HCPCS: 36415; 71045; 80053; 81003; 82550; 83690; 83735; 83880; 84484; 85025; 85610; 85730; 93005; 99283; 99284

== ENCOUNTER 2024-08-31 02:21 | Emergency (ER) | payer MEDICARE, MEDICAID, SELFPAY ==
[2022-10-09 21:22] VITALS: BMI 28.0
[2024-08-31] VITALS (18 sets, daily range): BP systolic 82–135; BP diastolic 44–61; PULSE 61–83; RESP 16–20; TEMP 36.5; O2SAT 93–99
[2024-08-31] MEDS: ONDANSETRON 4 MG/2 ML INJ IV (03:02)
[2024-08-31 03:08] LABS: Add Manual Diff / Slide Review NO; Basophils Absolute Auto 0 /uL (0-100); Basophils Percent Auto 0.2 % (0-2); Eosinophils Absolute Auto 100 /uL (0-450); Eosinophils Percent Auto 0.8 % (2-4); Hematocrit 36.8 % (36-46); Hemoglobin 12.4 g/dL (12.0-16.0); Lymphocytes Absolute Auto 600 /uL (1100-4500); Lymphocytes Percent Auto 5.6 % (25-40); Mean Corpuscular HGB Conc 33.7 % (30-36); Mean Corpuscular Hemoglobin 35.8 PG (26-34); Mean Corpuscular Volume 106.2 fL (80-100); Monocytes Absolute Auto 400 /uL (0-900); Monocytes Percent Auto 3.2 % (3-14); Neutrophils Absolute Auto 10100 /uL (1500-7000); Neutrophils Percent Auto 90.2 % (50-75); Platelet Count 292 X10^3/uL (150-400); Red Blood Cell Count 3.47 X10^6/uL (4.0-5.2); Red Cell Distribution Width 14.8 % (11.6-14.8); White Blood Cell Count 11.2 X10^3/uL (4.5-11.0)
[2024-08-31 03:17] LABS: Alanine Aminotransferase 24 IU/L (<35); Albumin 4.7 g/dL (3.5-5.0); Albumin Globulin Ratio 1.1 (1.0-2.8); Alkaline Phosphatase 122 U/L (38-126); Aspartate Aminotransferase 30 IU/L (14-36); Bilirubin Total 0.5 mg/dL (0.2-1.3); Blood Urea Nitrogen 22 mg/dL (7-17); Calcium 9.9 mg/dL (8.4-10.2); Carbon Dioxide 20 mmol/L (22-32); Chloride 99 mmol/L (98-107); Estimated Glomerular Filt Rate 54 mL/min (>60); Globulin 4.2 g/dL (1.7-4.1); Glucose 226 mg/dL (80-110); HEMOLYSIS 23 (0-50); Potassium 4.4 mmol/L (3.4-5.1); Sodium 136 mmol/L (137-145); Total Protein 8.9 g/dL (6.3-8.2)
[2024-08-31 03:20] LABS: Lactate (Lactic Acid) 5.1 mmol/L (0.7-2.1)
--- NOTE | 2024-08-31 03:20 | DI.RAD.S_ITS ---
PROCEDURE: XR CHEST 1V INDICATIONS: vomiting TECHNIQUE: One view of the chest was acquired. COMPARISON: [facility], CR, XR CHEST 1V, 06/09/2024, 16:07. FINDINGS: Surgical changes and devices: None. Lungs and pleura: Small lateral left lung atelectasis and or infiltrate with scarring. Mediastinum: Heart size enlarged. Atherosclerotic vascular calcification noted in the aortic arch. Bones and chest wall: Generalized decreased osseous mineralization noted. Multiple bilateral rib fractures without pneumothorax. IMPRESSION: Lateral left lung atelectasis and or infiltrate with scarring. Cardiomegaly without vascular congestion. Osteopenia multiple old healed rib fractures. Note: This final report is concordant with the preliminary after-hours interpretation provided by [employer] [facility] Approved by: Mohan Orozco M.D. on 08/31/2024 at 8:29
--- NOTE | 2024-08-31 03:24 | DI.CT.S_ITS ---
PROCEDURE: CT ABDOMEN PELVIS W CON INDICATIONS: n/v/diarrhea TECHNIQUE: After the administration of intravenous contrast, axial sections acquired from the lung bases to the pubic symphysis. Coronal and sagittal reformats were performed. For radiation dose reduction, the following was used: automated exposure control, adjustment of mA and/or kV according to patient size. COMPARISON: [facility], CT, CT ABDOMEN PELVIS W CON, 02/12/2024, 15:30. FINDINGS: Image quality: Diagnostic. Lower Chest: Bilateral dependent atelectasis. Nonspecific breast nodularity. Old rib fractures ABDOMEN: Liver: The liver is diffusely decreased in attenuation without focal mass lesion. Gallbladder: No radiopaque gallstones or wall thickening. Biliary ducts: No biliary dilation. Pancreas: No ductal dilation. Spleen: Size is within normal limits. Granuloma. Adrenal Glands: No adrenal nodules. Kidneys and Ureters: No hydronephrosis. No solid mass. No complex renal cystic lesion which requires follow up. Stomach and Bowel: Prominent distension of the small bowel without transition measures up to 3 cm. Distal small bowel is decompressed. Peritoneum: No abnormal intraperitoneal fluid. No free air. Ventral Wall: No significant ventral hernia. Abdominal Nodes: No retroperitoneal or mesenteric adenopathy by size criteria. Vessels: Aortic atherosclerotic vascular calcification noted without evidence of aneurysm. PELVIS: Pelvic Organs: Unremarkable. Bladder: No bladder wall thickening, accounting for underdistention. Pelvic Nodes: No enlarged lymph nodes. Miscellaneous: No inguinal hernias are seen. Bones: Old ununited left inferior pubic rami fracture. Degenerative disc disease and scoliosis. Sclerotic sacral insufficiency fractures. Osteopenia. IMPRESSION: Fluid distension of the small bowel without transition suggests gastroenteritis. Consider follow-up to exclude developing obstruction. Approved by: Mohan Orozco M.D. on 08/31/2024 at 8:40
[2024-08-31] MEDS: SODIUM CHLORIDE 0.9% 1,000 ML 1000 ML IV (03:32)
[2024-08-31 03:40] LABS: Creatine Kinase 21 U/L (30-135)
[2024-08-31 03:53] LABS: Troponin I 0.012 ng/mL (0.01-0.034)
--- NOTE | 2024-08-31 04:08 | ED.NAVMDI ---
HPI - Nausea/Vomiting/Diarrhea General Chief complaint: Nausea/Vomiting/Diarrhea Stated complaint: n/v/d Time Seen by Provider: 08/31/24 03:22 Source: patient, family and EMS Mode of arrival: EMS Limitations: other (Dementia) History of Present Illness HPI Narrative: 88-year-old female history of dementia, known coronary artery disease medical management only, diabetes on long-acting insulin, dyslipidemia, hypertension on aspirin 81 mg daily. Patient presents her care facility had called and said that she was having nausea vomiting and diarrhea that has pretty uncontrolled. Patient has not had any fevers. She denies chest pain, no abdominal back or flank pain. She received medication and nausea or vomiting has resolved. Patient sounds like she had nausea vomiting diarrhea was found with this at the care facility. No black or bloody stools or reported. She has not had any known urinary issues. Does have some chronic incontinence issues. No new swelling or other changes. Family at bedside states she has pretty severe dementia, she has known coronary artery disease she was medical management only she had a heart attack in the past year or 2 and was not a candidate for cardiac catheterization because of her chronic health conditions., she has had no prior surgeries. No known drug allergies. No tobacco, alcohol or recreational drugs. Dr. Hassan is her primary care physician. She was DNR/DNI but family is okay with fluids/antibiotics. Related Data Home Medications Medication Instructions Recorded Confirmed fluoxetine 20 mg capsule 20 mg PO QDAY ##0 01/26/17 10/10/22 gabapentin 300 mg capsule 300 mg PO BID ##0 01/26/17 10/10/22 (Neurontin) insulin aspar prot-insulin aspart See Rx Instructions .Route 01/26/17 10/10/22 100 unit/mL (70-30) subcutaneous .COMPLEX ##0 pen (Novolog Mix 70-30FlexPen U-100) metformin 1,000 mg tablet,extended 1,000 mg PO BID ##0 01/26/17 10/09/22 release 24hr (osmotic) spironolactone 25 mg tablet 25 mg QDAY ##0 01/26/17 10/10/22 insulin degludec 100 unit/mL (3 22 unit SUBCUT DAILY 08/02/21 10/10/22 mL) subcutaneous pen (Tresiba FlexTouch U-100 insulin) ketoconazole 2 % topical cream 1 applic topical DAILY PRN Rash 08/02/21 10/10/22 loratadine 10 mg tablet (Allergy 10 mg PO DAILY 08/02/21 10/10/22 Relief (loratadine)) losartan 25 mg tablet 50 mg PO DAILY #0 tabs 08/02/21 10/09/22 rosuvastatin 10 mg tablet 10 mg PO DAILY 08/02/21 10/10/22 triamcinolone acetonide 0.1 % 1 applic topical DAILY PRN Rash 08/02/21 10/10/22 topical cream Previous Rx's Medication Instructions Recorded aluminum hydrox-magnesium carb 254 5 ml PO QID PRN dyspepsia #355 mL 10/15/22 mg-237.5 mg/5 mL oral suspension fluconazole 150 mg tablet 150 mg PO Q3D 2 doses #2 tabs 11/07/22 fluconazole 150 mg tablet 150 mg PO Q3D 2 doses #2 tabs 02/12/24 cephalexin 500 mg capsule 500 mg PO TID #15 caps 08/31/24 loperamide 2 mg capsule (Imodium 2 mg PO Q6H PRN loose stool #10 08/31/24 A-D) caps Allergies Allergy/AdvReac Type Severity Reaction Status Date / Time ALONDRA Inhibitors Allergy Verified 11/07/22 15:23 ciprofloxacin Allergy Verified 11/07/22 15:23 Review of Systems Review of Systems ROS Unobtainable: All systems reviewed & are unremarkable except as noted in HPI and below Patient History Medical History History of diabetes mellitus, type II Microcytic anemia Hyperlipidemia Hypertension Hypothyroidism GERD (gastroesophageal reflux disease) Osteoporosis Dementia Surgical History History of hysterectomy Family History Father No problems noted. Mother No problems noted. Social History household members: none tobacco type: cigarettes Exam Narrative Exam Narrative: GENERAL: Alert and oriented to self, patient is in mild distress. HEENT: Head normocephalic, atraumatic, EOMI, pupils reactive, face symmetric, moist mucous membranes NECK: Supple, full range of motion CARDIOVASCULAR: Regular rate and rhythm without murmurs, rubs or gallops. RESPIRATORY: Breath sounds equal bilaterally, no wheezes rales or rhonchi. ABDOMEN: Soft, nontender, nondistended. Hyperactive bowel sounds all 4 quadrants. No guarding or rebound, rigidity, no mass : No CVA tenderness EXTREMITIES: Normal range of motion. Neurovascularly intact NEUROLOGICAL: Cranial nerves II through XII grossly intact. Moving all extremities SKIN: Warm, dry, no petechiae, no rashes or lesions. Initial Vital Signs Initial Vital Signs: Vital Signs Temperature 97.7 F 08/31/24 02:35 Pulse Rate 83 08/31/24 02:35 Respiratory Rate 20 08/31/24 02:35 Blood Pressure 125/61 08/31/24 02:35 Pulse Oximetry 98 08/31/24 02:35 Oxygen Delivery Method Room Air 08/31/24 02:35 Course Orders Ordered: Discontinued Medications Cephalexin HCl (Cephalexin 250 Mg Capsule) 500 mg PO NOW ONE Stop: 08/31/24 07:31 Last Admin: 08/31/24 07:40 Dose: 500 mg Documented By: NEWTON Sodium Chloride (Normal Saline 0.9%) 1,000 mls @ 1,000 mls/hr IV BOLUS ONE Stop: 08/31/24 04:22 Last Infusion: 08/31/24 06:10 Dose: Infused Documented By: Admin: 08/31/24 03:32 Dose: 1,000 mls/hr Documented By: SHAYNA Ondansetron HCl (Ondansetron 4 Mg/2 Ml Inj) 4 mg IV NOW PRN PRN Reason: Nausea And Vomiting Last Admin: 08/31/24 03:02 Dose: 4 mg Documented By: DEEPTI Ondansetron HCl (Ondansetron 4 Mg Odt) 4 mg SL NOW PRN PRN Reason: Nausea And Vomiting Ondansetron HCl (Ondansetron 4 Mg Odt Prepack) 1 bottle MISC DIRECTED ONE Stop: 08/31/24 07:28 Last Admin: 08/31/24 07:40 Dose: 1 bottle Documented By: NEWTON Vital Signs Vital signs: Vital Signs - 8 hr 08/31/24 02:35 08/31/24 03:00 08/31/24 03:07 Temperature 97.7 F Pulse Rate 83 79 76 Respiratory Rate 20 Blood Pressure 125/61 Pulse Oximetry 98 96 95 Oxygen Delivery Method Room Air 08/31/24 03:07 08/31/24 03:30 08/31/24 04:00 Temperature Pulse Rate 69 Respiratory Rate Blood Pressure 135/60 113/60 Pulse Oximetry 96 Oxygen Delivery Method 08/31/24 04:00 08/31/24 04:30 08/31/24 04:30 Temperature Pulse Rate 68 68 Respiratory Rate Blood Pressure 111/54 L Pulse Oximetry 97 Oxygen Delivery Method 08/31/24 05:00 08/31/24 05:30 08/31/24 05:51 Temperature Pulse Rate 65 61 Respiratory Rate Blood Pressure 82/44 L Pulse Oximetry 99 96 Oxygen Delivery Method 08/31/24 05:51 08/31/24 05:53 08/31/24 05:54 Temperature Pulse Rate 63 66 68 Respiratory Rate Blood Pressure Pulse Oximetry 93 97 95 Oxygen Delivery Method 08/31/24 05:55 08/31/24 06:00 08/31/24 06:00 Temperature Pulse Rate 65 72 Respiratory Rate Blood Pressure 103/56 L Pulse Oximetry 96 96 Oxygen Delivery Method MDM - Nausea/Vomiting/Diarrhea Lab Data 08/31/24 02:45 08/31/24 02:45 Labs: Lab Results 08/31/24 08/31/24 Range/Units 02:45 06:20 WBC 11.2 H (4.5-11.0) X10^3/uL RBC 3.47 L (4.0-5.2) X10^6/uL Hgb 12.4 (12.0-16.0) g/dL Hct 36.8 (36-46) % MCV 106.2 H (80-100) fL MCH 35.8 H (26-34) PG MCHC 33.7 (30-36) % RDW 14.8 (11.6-14.8) % Plt Count 292 (150-400) X10^3/uL Neut % (Auto) 90.2 H (50-75) % Lymph % (Auto) 5.6 L (25-40) % [place] % (Auto) 3.2 (3-14) % Eos % (Auto) 0.8 L (2-4) % Baso % (Auto) 0.2 (0-2) % Neut # (Auto) 53544 H (2983-0924) /uL Lymph # (Auto) 600 L (7878-7486) /uL [place] # (Auto) 400 (0-900) /uL Eos # (Auto) 100 (0-450) /uL Baso # (Auto) 0 (0-100) /uL Sodium 136 L (137-145) mmol/L Potassium 4.4 (3.4-5.1) mmol/L Chloride 99 (98-107) mmol/L Carbon Dioxide 20 L (22-32) mmol/L BUN 22 H (7-17) mg/dL Creatinine 1.00 (0.52-1.04) mg/dL Estimated GFR 54 L (>60) mL/min BUN/Creatinine Ratio 22.0 (6-22) Glucose 226 H (80-110) mg/dL Lactate 5.1 H* 2.6 H (0.7-2.1) mmol/L Calcium 9.9 (8.4-10.2) mg/dL Total Bilirubin 0.5 (0.2-1.3) mg/dL AST 30 (14-36) IU/L ALT 24 (<35) IU/L Alkaline Phosphatase 122 (38-126) U/L Total Creatine Kinase 21 L (30-135) U/L Troponin I 0.012 (0.01-0.034) ng/mL Total Protein 8.9 H (6.3-8.2) g/dL Albumin 4.7 (3.5-5.0) g/dL Globulin 4.2 H (1.7-4.1) g/dL Albumin/Globulin Ratio 1.1 (1.0-2.8) Urine Dip Bedside Urine Glucose Negative Bedside Urine Bilirubin ++ 2 Bedside Urine Ketone - Negative Urine Specific [place] 1.005 Bedside Urine Occult Blood + Bedside Urine pH 5.0 Bedside Urine Protein +/- 15 Bedside Urine Urobilinogen - Negative Bedside Urine Nitrite + Positive Bedside Urine Leukocytes ++ 125 Esterase ECG Data Attestation: I personally reviewed and interpreted this ECG as follows: Interpretation: Sinus rhythm left axis deviation, LVH, patient has inverted depressed T-waves in 1 and aVL, ST you reach 3. Patient has prior from 06/09/2024 which appears similar. Left bundle-branch block. MDM Narrative Medical decision making narrative: EKG left bundle-branch, appears similar to prior from June 09, 2024. Labs show white count 11.2 hemoglobin 12.4 platelets of 292. Sodium is 136 CO2 is 20 BUN 22 creatinine is 1, glucose is 226, patient's lactate is 5.1 LFTs are negative troponins less than 0.012. Repeat lactate has improved but not normalized to 2.6 Chest x-ray left lower lobe infiltrate. No pneumothorax. No pleural effusion or congestive changes. Heart size is normal. Arteriosclerosis of the aorta. Spondylotic changes thoracic spine. Remote bilateral rib fractures. S shaped scoliotic curve of the thoracic spine. CT abdomen pelvis she was prominent loops of small bowel scattered air-fluid levels present without transition point differential includes gastroenteritis involving small bowel obstruction or ileus. Air-fluid levels with the colon suggesting gastroenteritis incidental findings with a calcified splenic granulomata. No pneumoperitoneum or pneumatosis. Postsurgical findings of ventral hernia repair. Patient received a 1L of fluids, Zofran. Discussed with family about talking to the hospitalist for observation, nausea vomiting diarrhea gastro enteritis versus potential developing small-bowel obstruction although patient has not had any obstructive symptoms prior to this. She was nontender on exam no pain out of proportion with suspicion for ischemic gut is lower on the differential. They politely refused observation. She was concerned being in the hospital may make her mentation much worse. After discussion of goals care they would not have significant interventions. We will give prepack of Zofran, return precautions patient has not had any additional symptoms here. Did review all of her findings with family at bedside and they understand that there is concern for potentially developing bowel obstruction or other significant intra-abdominal process. Discharge Plan Departure Patient Disposition: Home Clinical Impression: Nausea, vomiting and diarrhea, UTI (urinary tract infection) Instructions: DI for Vomiting -- Adult Activity Restrictions/Additional Instructions: Your workup today did show an elevated lactate and improved but did not normalize, your imaging shows some prominent loops of small bowel with some scattered air-fluid levels this could be secondary to gastroenteritis versus involving bowel obstruction or ischemic bowel. I would like to keep you for observation but as you have elected to return home please return if you have new or worsening symptoms. Your workup today does show UTI. Can take Zofran 1 tablet every 6 hours as needed for nausea. Can take Imodium [id number], take 1 tablet p.o. can take 1/2 tablet after each loose stool maximum of 2 tablets in 24 hours. Prescription for oral antibiotic was sent to [facility] pharmacy. Take this until completed. Please return for fevers, new or worsening abdominal back or flank pain, persistent vomiting, black or bloody stools, worsening diarrhea or other new or concerning changes. Prescriptions: New loperamide [Imodium A-D] 2 mg capsule 2 mg PO Q6H PRN (Reason: loose stool) Qty: 10 0RF cephalexin 500 mg capsule 500 mg PO TID Qty: 15 0RF No Action loratadine [Allergy Relief (loratadine)] 10 mg tablet 10 mg PO DAILY Tresiba FlexTouch U-100 100 unit/mL (3 mL) insulin pen 22 unit SUBCUT DAILY rosuvastatin 10 mg tablet 10 mg PO DAILY ketoconazole 2 % cream 1 applic topical DAILY PRN (Reason: Rash) triamcinolone acetonide 0.1 % cream 1 applic topical DAILY PRN (Reason: Rash) fluoxetine 20 MG capsule 20 mg PO QDAY Qty: 0 gabapentin [Neurontin] 300 MG capsule 300 mg PO BID Qty: 0 spironolactone 25 MG tablet 25 mg QDAY Qty: 0 insulin asp prt-insulin aspart [Novolog Mix 70-30FlexPen U-100] 100 UNIT/1 ML insulin pen See Rx Instructions .ROUTE .COMPLEX Qty: 0 Rx Instructions: Inject subcutaneously per sliding scale 2 times daily 150-199=2 units, 200-250=3 units, 250-299=4 units, 300 or higher= 5 units metformin 1,000 MG tablet extended release 24hr 1,000 mg PO BID Qty: 0 losartan 25 mg tablet 50 mg PO DAILY Qty: 0 aluminum hydrox-magnesium carb 254-237.5 mg/5 mL suspension 5 ml PO QID PRN (Reason: dyspepsia) Qty: 355 0RF Rx Instructions: Generic Maalox, 5 mL QID prn dyspepsia fluconazole 150 mg tablet 150 mg PO Q3D Qty: 2 0RF fluconazole 150 mg tablet 150 mg PO Q3D Qty: 2 0RF Rx Instructions: may repeat second dose 72 hrs after first dose if symptoms persist Referrals: David Hassan MD [Primary Care Provider] - Stand Alone Forms: Patient Portal/API/Survey
[2024-08-31 04:32] LABS: Reflexed Lactate in 2 Hours Y
[2024-08-31 06:45] LABS: Lactate 2HR (Lactic Acid Rflx) 2.6 mmol/L (0.7-2.1)
[2024-08-31] MEDS: ONDANSETRON 4 MG ODT PREPACK 1 BOTTLE MISC (07:40)
[2024-08-31] MEDS: cephALEXin 250 MG CAPSULE 500 MG PO (07:40)
--- NOTE | 2024-08-31 08:04 | PC.NURSE ---
Lab called stating pt's urine sample leaked out of the cup and requested new sample. Pt ready for discharge. I notified Dr. Harris about sample loss and Dr. Harris OK with pt discharging home without new sample.
== END 2024-08-31 08:05 | disposition home or self-care (01) ==
PROVIDERS: Emergency Provider Emergency Medicine; PCP Family Medicine
DX: R11.2 Nausea with vomiting, unspecified (principal); N39.0 Urinary tract infection, site not specified; R19.7 Diarrhea, unspecified; Z86.79 Personal history of other diseases of the circulatory system; E11.9 Type 2 diabetes mellitus without complications; Z79.4 Long term (current) use of insulin; E78.5 Hyperlipidemia, unspecified; Z79.82 Long term (current) use of aspirin; I10 Essential (primary) hypertension
CPT/HCPCS: 36415; 71045; 74177; 80053; 81003; 82550; 83605; 84484; 85025; 96361; 96374; 99284; J2405; Q9967

== ENCOUNTER 2024-09-25 16:48 | Emergency (ER) | payer MEDICARE, MEDICAID, SELFPAY ==
[2022-10-09 21:22] VITALS: BMI 28.0
[2024-09-25 16:57] VITALS: BP 92/55; PULSE 67; RESP 18; TEMP 36.7; O2SAT 95; BMI 24.5
--- NOTE | 2024-09-25 18:29 | ED_ITS ---
HPI - Skin/Abscess/Foreign Bdy <Asuncion Bishop PA-C - Last Filed: 09/25/24 19:30> General Chief complaint: Skin/Abscess/Foreign Body Stated complaint: Allergies, eyes and skin irritation Time Seen by Provider: 09/25/24 18:28 Source: patient Mode of arrival: EMS Limitations: no limitations History of Present Illness HPI narrative: Ms. Lincoln is a pleasant 88-year-old female with a past medical history of dementia, type 2 diabetes, CAD, GERD, osteoporosis, hyperlipidemia who lives at [facility] who presents to the emergency department via EMS for multiple concerns. She is with her daughter who provides history. States that patient completed a course of antibiotics about 2 weeks ago and she is concerned that her mom has had a yeast infection since then. Patient has been having some vaginal/perineal erythema and irritation which her facility has been applying butt paste to however her perineum continues to get more red and irritated. She is also concerned that she has a vaginal yeast infection. She is also noticed that her mom has been developing some seasonal allergies with irritation and itching around the eyes since going outside more and sitting in the garden. She also would like for her to have stool softener as she has been constipated. Patient does wear briefs, denies abdominal pain, fevers, chills, N/V or any concerns at this time except for irritation in her gluteal cleft region. Related Data Home Medications Medication Instructions Recorded Confirmed fluoxetine 20 mg capsule 20 mg PO QDAY ##0 01/26/17 10/10/22 gabapentin 300 mg capsule 300 mg PO BID ##0 01/26/17 10/10/22 (Neurontin) insulin aspar prot-insulin aspart See Rx Instructions .Route 01/26/17 10/10/22 100 unit/mL (70-30) subcutaneous .COMPLEX ##0 pen (Novolog Mix 70-30FlexPen U-100) metformin 1,000 mg tablet,extended 1,000 mg PO BID ##0 01/26/17 10/09/22 release 24hr (osmotic) spironolactone 25 mg tablet 25 mg QDAY ##0 01/26/17 10/10/22 insulin degludec 100 unit/mL (3 22 unit SUBCUT DAILY 08/02/21 10/10/22 mL) subcutaneous pen (Tresiba FlexTouch U-100 insulin) ketoconazole 2 % topical cream 1 applic topical DAILY PRN Rash 08/02/21 10/10/22 loratadine 10 mg tablet (Allergy 10 mg PO DAILY 08/02/21 10/10/22 Relief (loratadine)) losartan 25 mg tablet 50 mg PO DAILY #0 tabs 08/02/21 10/09/22 rosuvastatin 10 mg tablet 10 mg PO DAILY 08/02/21 10/10/22 triamcinolone acetonide 0.1 % 1 applic topical DAILY PRN Rash 08/02/21 10/10/22 topical cream Previous Rx's Medication Instructions Recorded aluminum hydrox-magnesium carb 254 5 ml PO QID PRN dyspepsia #355 mL 10/15/22 mg-237.5 mg/5 mL oral suspension fluconazole 150 mg tablet 150 mg PO Q3D 2 doses #2 tabs 11/07/22 fluconazole 150 mg tablet 150 mg PO Q3D 2 doses #2 tabs 02/12/24 cephalexin 500 mg capsule 500 mg PO TID #15 caps 08/31/24 loperamide 2 mg capsule (Imodium 2 mg PO Q6H PRN loose stool #10 08/31/24 A-D) caps cetirizine 10 mg tablet 10 mg PO DAILY 1 month #30 tabs 09/25/24 clotrimazole 1 % topical cream 1 applic topical BID 4 weeks #45 09/25/24 grams fluticasone propionate 50 1 spray intranasal DAILY 1 month 09/25/24 mcg/actuation nasal #16 grams spray,suspension (Flonase Allergy Relief) ketoconazole 1 % shampoo 1 applic topical 2XW #200 mL 09/25/24 polyethylene glycol 3350 17 gram 17 g PO DAILY 1 month #30 ea 09/25/24 oral powder packet (Miralax) Allergies Allergy/AdvReac Type Severity Reaction Status Date / Time ALONDRA Inhibitors Allergy Verified 11/07/22 15:23 ciprofloxacin Allergy Verified 11/07/22 15:23 Review of Systems <Asuncion Bishop PA-C - Last Filed: 09/25/24 19:30> Review of Systems ROS Unobtainable: All systems reviewed & are unremarkable except as noted in HPI and below Patient History <Asuncion Bishop PA-C - Last Filed: 09/25/24 19:30> Medical History History of diabetes mellitus, type II Microcytic anemia Hyperlipidemia Hypertension Hypothyroidism GERD (gastroesophageal reflux disease) Osteoporosis Dementia Surgical History History of hysterectomy Family History Father No problems noted. Mother No problems noted. Social History household members: none tobacco type: cigarettes Exam <Asuncion Bishop PA-C - Last Filed: 09/25/24 19:30> Narrative Exam Narrative: GENERAL: 88 year old patient appears stated age. Well-developed patient, in no acute distress, allows daughter to provide history. HEAD: Atraumatic. Normocephalic. EYES: Patient has bilateral periorbital erythema and dry skin. Sclerae and conjunctivae are clear no signs of conjunctivitis, no eye drainage. NECK: Trachea midline. Cervical ROM intact. CARDIOVASCULAR: Regular rate and rhythm. RESPIRATORY: ?Nonlabored respirations. ?Speaking in clear, full sentences. ?Clear to auscultation. Breath sounds equal bilaterally. No wheezes, rales, or rhonchi. ? GASTROINTESTINAL: Abdomen soft, protuberant, normal bowel sounds, nontender. : Diffuse erythema in perineum and extending onto thighs, gluteal cleft. Skin is raw, blanchable. One small open/scratched wound. There is very scant thick white vaginal discharge present in the vulva. NEURO: Pleasantly confused. Clear speech. ?Moves all 4 extremities appropriately. Initial Vital Signs Initial Vital Signs: Vital Signs Temperature 98.0 F 09/25/24 16:57 Pulse Rate 67 09/25/24 16:57 Respiratory Rate 18 09/25/24 16:57 Blood Pressure 92/55 L 09/25/24 16:57 Pulse Oximetry 95 09/25/24 16:57 Oxygen Delivery Method Room Air 09/25/24 16:57 <Rod Pierson MD - Last Filed: 10/01/24 08:14> Initial Vital Signs Initial Vital Signs: Vital Signs Temperature 98.0 F 09/25/24 16:57 Pulse Rate 67 09/25/24 16:57 Respiratory Rate 18 09/25/24 16:57 Blood Pressure 92/55 L 09/25/24 16:57 Pulse Oximetry 95 09/25/24 16:57 Oxygen Delivery Method Room Air 09/25/24 16:57 Course <Asuncion Bishop PA-C - Last Filed: 09/25/24 19:30> Orders Ordered: Discontinued Medications Fluconazole (Fluconazole 100 Mg Tablet) 150 mg PO NOW ONE Stop: 09/25/24 18:50 Last Admin: 09/25/24 19:08 Dose: 150 mg Documented By: JOLEEN Vital Signs Vital signs: Vital Signs - 8 hr 09/25/24 16:57 Temperature 98.0 F Pulse Rate 67 Respiratory Rate 18 Blood Pressure 92/55 L Pulse Oximetry 95 Oxygen Delivery Method Room Air <Rod Pierson MD - Last Filed: 10/01/24 08:14> Orders Ordered: Discontinued Medications Fluconazole (Fluconazole 100 Mg Tablet) 150 mg PO NOW ONE Stop: 09/25/24 18:50 Last Admin: 09/25/24 19:08 Dose: 150 mg Documented By: JOLEEN Vital Signs Vital signs: Vital Signs - 8 hr 09/25/24 16:57 Temperature 98.0 F Pulse Rate 67 Respiratory Rate 18 Blood Pressure 92/55 L Pulse Oximetry 95 Oxygen Delivery Method Room Air MDM - Skin/Abscess/Foreign Bdy <Asuncion Bishop PA-C - Last Filed: 09/25/24 19:30> Medical Records Attestation: I reviewed the patient's medical records. MDM Narrative Medical decision making narrative: 88-year-old female with a past medical history of dementia, type 2 diabetes, CAD, GERD, osteoporosis, hyperlipidemia who lives at [facility] who presents to the emergency department via EMS for multiple concerns. She is with her daughter who provides history. States that patient completed a course of antibiotics about 2 weeks ago and she is concerned that her mom has had a yeast infection since then. Differential diagnosis includes but is not limited to seasonal allergies, allergic rhinitis, perioral dermatitis, vulvovaginal candidiasis, intertrigo, candidal yeast infection, constipation, etc. On exam patient is in no acute distress, nontoxic appearing, vital signs appropriate, pleasantly confused. After completion of antibiotics patient's daughter is concerned that she has developed a yeast infection. She does have e xtremely significant erythematous and raw skin in the perineum, consistent with intertrigo and likely vulvovaginal candidiasis. She also has some erythema around her eyes that is itchy since spending more time outside in the garden, consistent with enviornemntal allergies, no wheezing stridor or urticaria. For the seasonal allergies I recommend daily cetirizine, intranasal Flonase, Pataday eyedrops as needed. For her skin I recommended clotrimazole cream twice a day for the next 4 weeks with Vaseline or barrier cream on top, and additional treat with 1 time Diflucan 150 mg in the emergency department. Discussed proper skin care. Was prescribed MiraLax daily as requested. Advised prompt follow up with PCP for further management. Patient's daughter verbalized understanding of all information is agreeable with the plan, patient stable for discharge back to her assisted living facility. Patient was cleaned and new brief applied by nursing staff prior to discharge. Discharge Plan Departure Patient Disposition: Home Clinical Impression: Environmental allergies, Vulvovaginal candidiasis, Intertrigo Instructions: DI for Intertrigo Activity Restrictions/Additional Instructions: Dear Ms. Lincoln, You have been treated with a one time dose of diflucan for a vaginal yeast infection. I have also prescribed clotrimazole cream, which is a topical antifungal, to apply directly to all red areas of skin twice a day for at least 4 weeks. This needs to be applied to clean skin. You may put a barrier cream or vaseline overtop of this for hydration. Please change briefs frequently as constant moisture in the brief will worsen symptoms. Spend time without a brief on / airing out the groin if possible. Avoid rubbing fragile skin, and instead gentle wash with warm water as needed. For seasonal allergies: Use over the counter allergy eye drops such as Pataday once daily relief eye allergy itch relief drops. In addition, take allergy pill (cetirizine) daily, and use flonase nasal spray daily. I recommend using antifungal shampoo (ketoconazole) twice weekly in the shower f or face, hair, and groin. You have also been prescribed daily Miralax is needed for constipation. Please follow up with your primary care doctor as soon as possible for further management of all conditions. Please follow up with your primary care doctor within the next 2-3 days for ER follow-up. (If you do not have a PCP you can call [phone]. ?to schedule an appointment with an [facility] Primary Care Provider) IF YOU DEVELOP ANY NEW OR WORSENING SYMPTOMS, RETURN TO THE ER! Please read the attached instructions, they highlight more specific treatments and interventions for you at home. Thank you for letting me participate in your care, Asuncion Bishop PA-C Prescriptions: New cetirizine 10 mg tablet 10 mg PO DAILY 30 Days Qty: 30 0RF fluticasone propionate [Flonase Allergy Relief] 50 mcg/actuation spray,suspension 1 spray intranasal DAILY 30 Days Qty: 16 0RF Rx Instructions: administer into each nostril clotrimazole 1 % cream 1 applic topical BID 28 Days Qty: 45 0RF Rx Instructions: apply to groin, perineal folds, gluteal cleft polyethylene glycol 3350 [Miralax] 17 gram powder in packet 17 g PO DAILY 30 Days Qty: 30 0RF ketoconazole 1 % shampoo 1 applic topical 2XW Qty: 200 0RF Rx Instructions: use as wash for face, hair, groin (avoid eyes) No Action loratadine [Allergy Relief (loratadine)] 10 mg tablet 10 mg PO DAILY Tresiba FlexTouch U-100 100 unit/mL (3 mL) insulin pen 22 unit SUBCUT DAILY rosuvastatin 10 mg tablet 10 mg PO DAILY ketoconazole 2 % cream 1 applic topical DAILY PRN (Reason: Rash) triamcinolone acetonide 0.1 % cream 1 applic topical DAILY PRN (Reason: Rash) fluoxetine 20 MG capsule 20 mg PO QDAY Qty: 0 gabapentin [Neurontin] 300 MG capsule 300 mg PO BID Qty: 0 spironolactone 25 MG tablet 25 mg QDAY Qty: 0 insulin asp prt-insulin aspart [Novolog Mix 70-30FlexPen U-100] 100 UNIT/1 ML insulin pen See Rx Instructions .ROUTE .COMPLEX Qty: 0 Rx Instructions: Inject subcutaneously per sliding scale 2 times daily 150-199=2 units, 200-25 0=3 units, 250-299=4 units, 300 or higher= 5 units metformin 1,000 MG tablet extended release 24hr 1,000 mg PO BID Qty: 0 losartan 25 mg tablet 50 mg PO DAILY Qty: 0 aluminum hydrox-magnesium carb 254-237.5 mg/5 mL suspension 5 ml PO QID PRN (Reason: dyspepsia) Qty: 355 0RF Rx Instructions: Generic Maalox, 5 mL QID prn dyspepsia fluconazole 150 mg tablet 150 mg PO Q3D Qty: 2 0RF fluconazole 150 mg tablet 150 mg PO Q3D Qty: 2 0RF Rx Instructions: may repeat second dose 72 hrs after first dose if symptoms persist loperamide [Imodium A-D] 2 mg capsule 2 mg PO Q6H PRN (Reason: loose stool) Qty: 10 0RF cephalexin 500 mg capsule 500 mg PO TID Qty: 15 0RF Referrals: David Hassan MD [Primary Care Provider] - Stand Alone Forms: Patient Portal/API/Survey ED Sign-out <Rod Pierson MD - Last Filed: 10/01/24 08:14> Cosign ED Attending Cosignature Attestation: I was immediately available in the department for consultation. ?This documentation has been reviewed and I agree with assessment and plan. Supervised by Rod Pierson MD
[2024-09-25] MEDS: FLUCONAZOLE 100 MG TABLET 150 MG PO (19:08)
[2024-09-25 19:26] VITALS: BP 155/68; PULSE 77; RESP 19; O2SAT 97
== END 2024-09-25 19:28 | disposition home or self-care (01) ==
PROVIDERS: Emergency Provider Physician Assistant; PCP Family Medicine
DX: B37.31 Acute candidiasis of vulva and vagina (principal); L30.4 Erythema intertrigo; T78.49XA Other allergy, initial encounter
CPT/HCPCS: 99283

== ENCOUNTER 2024-10-01 15:04 | Observation (INO) | payer MEDICARE, MEDICAID, SELFPAY ==
[2022-10-09 21:22] VITALS: BMI 28.0
[2024-10-01] VITALS (7 sets, daily range): BP systolic 139–163; BP diastolic 55–70; PULSE 62–78; RESP 15–22; TEMP 35.9–36.9; O2SAT 97–100; BMI 24.5
--- NOTE | 2024-10-01 16:16 | ED_ITS ---
HPI - Skin/Abscess/Foreign Bdy <Rod Pierson MD - Last Filed: 10/03/24 08:14> General Chief complaint: Skin/Abscess/Foreign Body Stated complaint: spreading alla getting worse Time Seen by Provider: 10/01/24 15:17 Source: patient and family Mode of arrival: Wheelchair History of Present Illness HPI narrative: Patient returns today with Dilaudid for worsening rash on the eyes mouth and vaginal area for the past 3 weeks. Patient was prescribed medications last visit here. She was not on any new medications prior to ER visit. However review of ER visit here September 25 patient was on antibiotics 2 weeks prior to arrival. Vaginal exam was done last visit here. Patient was discharged on ketoconazole shampoo clotrimazole cream and allergy medication Related Data Home Medications Medication Instructions Recorded Confirmed fluoxetine 20 mg capsule 20 mg PO QDAY ##0 01/26/17 10/10/22 gabapentin 300 mg capsule 300 mg PO BID ##0 01/26/17 10/10/22 (Neurontin) insulin aspar prot-insulin aspart See Rx Instructions .Route 01/26/17 10/10/22 100 unit/mL (70-30) subcutaneous .COMPLEX ##0 pen (Novolog Mix 70-30FlexPen U-100) metformin 1,000 mg tablet,extended 1,000 mg PO BID ##0 01/26/17 10/09/22 release 24hr (osmotic) spironolactone 25 mg tablet 25 mg QDAY ##0 01/26/17 10/10/22 insulin degludec 100 unit/mL (3 22 unit SUBCUT DAILY 08/02/21 10/10/22 mL) subcutaneous pen (Tresiba FlexTouch U-100 insulin) ketoconazole 2 % topical cream 1 applic topical DAILY PRN Rash 08/02/21 10/10/22 loratadine 10 mg tablet (Allergy 10 mg PO DAILY 08/02/21 10/10/22 Relief (loratadine)) losartan 25 mg tablet 50 mg PO DAILY #0 tabs 08/02/21 10/09/22 rosuvastatin 10 mg tablet 10 mg PO DAILY 08/02/21 10/10/22 triamcinolone acetonide 0.1 % 1 applic topical DAILY PRN Rash 08/02/21 10/10/22 topical cream Previous Rx's Medication Instructions Recorded aluminum hydrox-magnesium carb 254 5 ml PO QID PRN dyspepsia #355 mL 10/15/22 mg-237.5 mg/5 mL oral suspension loperamide 2 mg capsule (Imodium 2 mg PO Q6H PRN loose stool #10 08/31/24 A-D) caps cetirizine 10 mg tablet 10 mg PO DAILY 1 month #30 tabs 09/25/24 clotrimazole 1 % topical cream 1 applic topical BID 4 weeks #45 09/25/24 grams fluticasone propionate 50 1 spray intranasal DAILY 1 month 09/25/24 mcg/actuation nasal #16 grams spray,suspension (Flonase Allergy Relief) ketoconazole 1 % shampoo 1 applic topical 2XW #200 mL 09/25/24 polyethylene glycol 3350 17 gram 17 g PO DAILY 1 month #30 ea 09/25/24 oral powder packet (Miralax) prednisone 20 mg tablet 60 mg (3 x 20 mg) PO DAILY 4 days 10/02/24 #12 tabs Allergies Allergy/AdvReac Type Severity Reaction Status Date / Time ALONDRA Inhibitors Allergy Verified 10/01/24 15:14 ciprofloxacin Allergy Verified 10/01/24 15:14 Review of Systems <Rod Pierson MD - Last Filed: 10/03/24 08:14> Review of Systems Narrative: GENERAL: Negative chills, fatigue, malaise, fever, sweats. HEENT: Negative sinus pain, ear pain, sore throat RESPIRATORY: Negative dyspnea, cough CARDIOVASCULAR: Negative chest pain, palpitations GASTROINTESTINAL: Negative vomiting, nausea, abdominal pain : Negative dysuria, frequency, hematuria MUSCULOSKELETAL: Negative muscle or bony pain SKIN: Positive rash, skin lesions NEUROLOGIC: Negative weakness, numbness ROS Unobtainable: All systems reviewed & are unremarkable except as noted in HPI and below Patient History <Rod Pierson MD - Last Filed: 10/03/24 08:14> Medical History Diabetes History of diabetes mellitus, type II Microcytic anemia Hyperlipidemia Hypertension Hypothyroidism GERD (gastroesophageal reflux disease) Osteoporosis Dementia Surgical History History of hysterectomy Family History Father No problems noted. Mother No problems noted. Social History household members: none Smoking Status: Never smoker alcohol intake: never tobacco type: cigarettes Exam <Rod Pierson MD - Last Filed: 10/03/24 08:14> Narrative Exam Narrative: GENERAL: in no distress, not toxic not dyspneic HEAD: Normocephalic. EYES: Pupils equal round, bilateral conjunctivitis noted. ENT: Oral cavity is dry. Cracking of the lips but no lesions. No sloughing of the skin. NECK: Trachea midline. CARDIOVASCULAR: Regular rate and rhythm RESPIRATORY: Clear to auscultation. Breath sounds equal bilaterally. No wheezes, rales, or rhonchi. GASTROINTESTINAL: Abdomen soft, non-tender EXTREMITIES: No gross deformities. BACK: No flank tenderness. NEURO: AOx3. Clear speech SKIN: Warm and dry, there is erythema symmetric bilateral thighs and perineum. No vesicles. No full-thickness involvement. PSYCH: Not anxious, is cooperative Initial Vital Signs Initial Vital Signs: Vital Signs Temperature 98.5 F 10/01/24 15:10 Pulse Rate 78 10/01/24 15:10 Respiratory Rate 16 10/01/24 15:10 Blood Pressure 152/65 H 10/01/24 15:10 Pulse Oximetry 99 10/01/24 15:10 Oxygen Delivery Method Room Air 10/01/24 15:10 <Everardo Moreno DO - Last Filed: 10/01/24 22:05> Initial Vital Signs Initial Vital Signs: Vital Signs Temperature 98.5 F 10/01/24 15:10 Pulse Rate 78 10/01/24 15:10 Respiratory Rate 16 10/01/24 15:10 Blood Pressure 152/65 H 10/01/24 15:10 Pulse Oximetry 99 10/01/24 15:10 Oxygen Delivery Method Room Air 10/01/24 15:10 Course <Rod Pierson MD - Last Filed: 10/03/24 08:14> Orders Ordered: Discontinued Medications Acetaminophen (Acetaminophen 325 Mg Tablet) 650 mg PO NOW ONE Stop: 10/01/24 20:41 Last Admin: 10/01/24 20:58 Dose: 650 mg Documented By: FLOR Acetaminophen (Acetaminophen 325 Mg Tablet) 650 mg PO Q6H PRN PRN Reason: Fever/Mild Pain (1-3) Last Admin: 10/02/24 10:03 Dose: 650 mg Documented By: LUCIUS Enoxaparin Sodium (Enoxaparin 40 Mg/0.4 Ml Syringe) 40 mg SUBCUT DAILY [facility] Last Admin: 10/02/24 10:01 Dose: 40 mg Documented By: LUCIUS Dextrose (D10w) 100 mls @ 1,200 mls/hr IV PRN PRN PRN Reason: Hypoglycemia Insulin Glargine (Insulin Glargine 100 Unit/Ml 3ml Pen) 22 unit SUBCUT DAILY [facility] Last Admin: 10/02/24 10:04 Dose: 22 unit Documented By: LUCIUS Co-signed By: Insulin Human Lispro (Insulin Lispro 100 Unit/Ml 3ml Vial) 0 unit SUBCUT ACHS [facility]; Protocol Last Admin: 10/02/24 15:45 Dose: 5 unit Documented By: Co-signed By: LUCIUS Admin: 10/02/24 11:39 Dose: 5 unit Documented By: Co-signed By: LUCIUS Admin: 10/02/24 08:00 Dose: 3 unit Documented By: Co-signed By: LUCIUS Losartan Potassium (Losartan 25 Mg Tablet) 50 mg PO DAILY [facility] Last Admin: 10/02/24 11:38 Dose: Not Given Documented By: Metformin HCl (Metformin Xr 500 Mg Tablet) 1,000 mg PO BID [facility] Last Admin: 10/02/24 10:03 Dose: 1,000 mg Documented By: LUCIUS Methylprednisolone (Methylprednisolone 125 Mg/2 Ml Vial) 125 mg IV NOW ONE Stop: 10/01/24 19:55 Last Admin: 10/01/24 20:21 Dose: 125 mg Documented By: FLOR Naloxone HCl (Naloxone 0.4 Mg/Ml Vial) 0.2 mg IV Q2MIN PRN PRN Reason: Opiate Reversal Ondansetron HCl (Ondansetron 4 Mg Odt) 4 mg PO Q8HR PRN PRN Reason: Nausea And Vomiting Pantoprazole Sodium (Pantoprazole Dr 20 Mg Tablet) 20 mg PO NOW ONE Stop: 10/01/24 21:09 Last Admin: 10/01/24 22:34 Dose: 20 mg Documented By: SHANTE Sodium Chloride (Sodium Chloride 0.9% Flush) 10 ml IV PRN PRN PRN Reason: Flush Sodium Chloride (Sodium Chloride 0.9% Flush) 10 ml IV BID [facility] Last Admin: 10/02/24 08:00 Dose: 10 ml Documented By: Vital Signs Vital signs: Vital Signs - 8 hr 10/01/24 15:10 10/01/24 19:19 10/01/24 19:30 Temperature 98.5 F Pulse Rate 78 66 64 Respiratory Rate 16 20 22 Blood Pressure 152/65 H Pulse Oximetry 99 100 99 Oxygen Delivery Method Room Air 10/01/24 19:31 10/01/24 19:31 10/01/24 20:00 Temperature Pulse Rate 64 62 Respiratory Rate 19 15 Blood Pressure 163/70 H Pulse Oximetry 97 100 Oxygen Delivery Method 10/01/24 20:01 10/01/24 20:01 Temperature Pulse Rate 64 Respiratory Rate 20 Blood Pressure 139/63 Pulse Oximetry 99 Oxygen Delivery Method Room Air <Everardo Moreno DO - Last Filed: 10/01/24 22:05> Orders Ordered: Discontinued Medications Acetaminophen (Acetaminophen 325 Mg Tablet) 650 mg PO NOW ONE Stop: 10/01/24 20:41 Last Admin: 10/01/24 20:58 Dose: 650 mg Documented By: FLOR Acetaminophen (Acetaminophen 325 Mg Tablet) 650 mg PO Q6H PRN PRN Reason: Fever/Mild Pain (1-3) Last Admin: 10/02/24 10:03 Dose: 650 mg Documented By: LUCIUS Enoxaparin Sodium (Enoxaparin 40 Mg/0.4 Ml Syringe) 40 mg SUBCUT DAILY [facility] Last Admin: 10/02/24 10:01 Dose: 40 mg Documented By: LUCIUS Dextrose (D10w) 100 mls @ 1,200 mls/hr IV PRN PRN PRN Reason: Hypoglycemia Insulin Glargine (Insulin Glargine 100 Unit/Ml 3ml Pen) 22 unit SUBCUT DAILY [facility] Last Admin: 10/02/24 10:04 Dose: 22 unit Documented By: LUCIUS Co-signed By: Insulin Human Lispro (Insulin Lispro 100 Unit/Ml 3ml Vial) 0 unit SUBCUT ACHS [facility]; Protocol Last Admin: 10/02/24 15:45 Dose: 5 unit Documented By: Co-signed By: LUCIUS Admin: 10/02/24 11:39 Dose: 5 unit Documented By: MG Co-signed By: LUCIUS Admin: 10/02/24 08:00 Dose: 3 unit Documented By: MG Co-signed By: LUCIUS Losartan Potassium (Losartan 25 Mg Tablet) 50 mg PO DAILY [facility] Last Admin: 10/02/24 11:38 Dose: Not Given Documented By: MG Metformin HCl (Metformin Xr 500 Mg Tablet) 1,000 mg PO BID [facility] Last Admin: 10/02/24 10:03 Dose: 1,000 mg Documented By: LUCIUS Methylprednisolone (Methylprednisolone 125 Mg/2 Ml Vial) 125 mg IV NOW ONE Stop: 10/01/24 19:55 Last Admin: 10/01/24 20:21 Dose: 125 mg Documented By: FLOR Naloxone HCl (Naloxone 0.4 Mg/Ml Vial) 0.2 mg IV Q2MIN PRN PRN Reason: Opiate Reversal Ondansetron HCl (Ondansetron 4 Mg Odt) 4 mg PO Q8HR PRN PRN Reason: Nausea And Vomiting Pantoprazole Sodium (Pantoprazole Dr 20 Mg Tablet) 20 mg PO NOW ONE Stop: 10/01/24 21:09 Last Admin: 10/01/24 22:34 Dose: 20 mg Documented By: SHANTE Sodium Chloride (Sodium Chloride 0.9% Flush) 10 ml IV PRN PRN PRN Reason: Flush Sodium Chloride (Sodium Chloride 0.9% Flush) 10 ml IV BID [facility] Last Admin: 10/02/24 08:00 Dose: 10 ml Documented By: Vital Signs Vital signs: Vital Signs - 8 hr 10/01/24 15:10 10/01/24 19:19 10/01/24 19:30 Temperature 98.5 F Pulse Rate 78 66 64 Respiratory Rate 16 20 22 Blood Pressure 152/65 H Pulse Oximetry 99 100 99 Oxygen Delivery Method Room Air 10/01/24 19:31 10/01/24 19:31 10/01/24 20:00 Temperature Pulse Rate 64 62 Respiratory Rate 19 15 Blood Pressure 163/70 H Pulse Oximetry 97 100 Oxygen Delivery Method 10/01/24 20:01 10/01/24 20:01 Temperature Pulse Rate 64 Respiratory Rate 20 Blood Pressure 139/63 Pulse Oximetry 99 Oxygen Delivery Method Room Air MDM - Skin/Abscess/Foreign Bdy <Rod Pierson MD - Last Filed: 10/03/24 08:14> Lab Data 10/02/24 04:10 10/02/24 04:10 Labs: Lab Results 10/01/24 10/01/24 10/01/24 Range/Units 18:05 18:20 19:05 WBC 5.5 (4.5-11.0) X10^3/uL RBC 2.84 L (4.0-5.2) X10^6/uL Hgb 10.2 L (12.0-16.0) g/dL Hct 30.0 L (36-46) % MCV 105.5 H (80-100) fL MCH 35.8 H (26-34) PG MCHC 33.9 (30-36) % RDW 14.4 (11.6-14.8) % Plt Count 238 (150-400) X10^3/uL Neut % (Auto) 65.1 (50-75) % Lymph % (Auto) 26.4 (25-40) % [place] % (Auto) 3.8 (3-14) % Eos % (Auto) 4.3 H (2-4) % Baso % (Auto) 0.4 (0-2) % Neut # (Auto) 3600 (2615-4438) /uL Lymph # (Auto) 1500 (0470-6737) /uL [place] # (Auto) 200 (0-900) /uL Eos # (Auto) 200 (0-450) /uL Baso # (Auto) 0 (0-100) /uL ESR 4 (0-20) MM/HR Sodium 132 L (137-145) mmol/L Potassium 4.7 (3.4-5.1) mmol/L Chloride 101 (98-107) mmol/L Carbon Dioxide 24 (22-32) mmol/L BUN 22 H (7-17) mg/dL Creatinine 0.85 (0.52-1.04) mg/dL Estimated GFR > 60 (>60) mL/min BUN/Creatinine Ratio 25.9 H (6-22) Glucose 204 H (70-99) mg/dL Lactate 1.9 (0.7-2.1) mmol/L Calcium 8.2 L (8.4-10.2) mg/dL Total Bilirubin 0.3 (0.2-1.3) mg/dL AST 24 (14-36) IU/L ALT 17 (<35) IU/L Alkaline Phosphatase 85 (38-126) U/L C-Reactive Protein 5.1 H (<1.0) mg/dL Total Protein 6.7 (6.3-8.2) g/dL Albumin 3.2 L (3.5-5.0) g/dL Globulin 3.5 (1.7-4.1) g/dL Albumin/Globulin Ratio 0.9 L (1.0-2.8) Procalcitonin 0.096 (<0.5) ng/mL Urine Color Yellow Urine Appearance Clear Urine pH 5.5 (4.5-8.0) Ur Specific [place] 1.015 (1.000-1.035) Urine Protein Negative (Negative) Urine Glucose (UA) Negative (Negative) g/dL Urine Ketones Negative (NEGATIVE) Urine Occult Blood Negative (Negative) Urine Nitrate Positive H (Negative) Urine Bilirubin Negative (NEGATIVE) Urine Urobilinogen 0.2 (0.2) E.U./dL Ur Leukocyte Esterase 1+ H (NEGATIVE) Urine RBC 0-1/hpf D (0-5/HPF) Urine WBC 10-30/hpf H (0-5/HPF) Ur Squamous Epith Cells 0-1 /hpf (0-5/HPF) Urine Bacteria Many (>30) H (None) Ur Culture Indicated? Specimen cultured Vol Urine Centrifuged 10ml (spun) Point of Care Testing Glucose POC 277 MDM Narrative Medical decision making narrative: Patient returns today with Dilaudid for worsening rash on the eyes mouth and vaginal area for the past 3 weeks. Patient was prescribed medications last visit here. She was not on any new medications prior to ER visit. However review of ER visit here September 25 patient was on antibiotics 2 weeks prior to arrival. Vaginal exam was done last visit here. Patient was discharged on ketoconazole shampoo clotrimazole cream and allergy medication After history and exam, CBC CMP ESR CRP blood culture lactic acid procalcitonin [facility] Medical records reviewed: September 25 2024 ER visit here, August 31 2024 ER visit here, was started on Keflex for UTI. Differential considered: Includes but not limited to Thapa-Trey syndrome. TENS, antibiotic allergy Lab Test results independently reviewed as above. Pertinent findings: Consultations: 5:40 p.m.. Spoke with [facility], spoke with Dr. Rowena Segundo, she has reviewed images we e-mail to them. Pictures she has reviewed, she does not feel this is Thapa-Trey syndrome, patient does not need be transferred. Would look for other sources such as contact dermatitis drug reaction. Pending on labs, either give steroids IV or antibiotics for cellulitis. Labs are pending. Recommend observation overnight Re-evaluations: Discussion: Diagnosis: 6:[address] Pierson: Sign out to Dr. Moreno, labs are pending, needs re- evaluation, Dermatology recommends admission for observation either antibiotics or steroids pending results of labs. <Everardo Moreno, DO - Last Filed: 10/01/24 22:05> Lab Data Labs: Lab Results 10/01/24 10/01/24 10/01/24 Range/Units 18:05 18:20 19:05 WBC 5.5 (4.5-11.0) X10^3/uL RBC 2.84 L (4.0-5.2) X10^6/uL Hgb 10.2 L (12.0-16.0) g/dL Hct 30.0 L (36-46) % MCV 105.5 H (80-100) fL MCH 35.8 H (26-34) PG MCHC 33.9 (30-36) % RDW 14.4 (11.6-14.8) % Plt Count 238 (150-400) X10^3/uL Neut % (Auto) 65.1 (50-75) % Lymph % (Auto) 26.4 (25-40) % [place] % (Auto) 3.8 (3-14) % Eos % (Auto) 4.3 H (2-4) % Baso % (Auto) 0.4 (0-2) % Neut # (Auto) 3600 (3179-5328) /uL Lymph # (Auto) 1500 (9089-5544) /uL [place] # (Auto) 200 (0-900) /uL Eos # (Auto) 200 (0-450) /uL Baso # (Auto) 0 (0-100) /uL ESR 4 (0-20) MM/HR Sodium 132 L (137-145) mmol/L Potassium 4.7 (3.4-5.1) mmol/L Chloride 101 (98-107) mmol/L Carbon Dioxide 24 (22-32) mmol/L BUN 22 H (7-17) mg/dL Creatinine 0.85 (0.52-1.04) mg/dL Estimated GFR > 60 (>60) mL/min BUN/Creatinine Ratio 25.9 H (6-22) Glucose 204 H (70-99) mg/dL Lactate 1.9 (0.7-2.1) mmol/L Calcium 8.2 L (8.4-10.2) mg/dL Total Bilirubin 0.3 (0.2-1.3) mg/dL AST 24 (14-36) IU/L ALT 17 (<35) IU/L Alkaline Phosphatase 85 (38-126) U/L C-Reactive Protein 5.1 H (<1.0) mg/dL Total Protein 6.7 (6.3-8.2) g/dL Albumin 3.2 L (3.5-5.0) g/dL Globulin 3.5 (1.7-4.1) g/dL Albumin/Globulin Ratio 0.9 L (1.0-2.8) Procalcitonin 0.096 (<0.5) ng/mL Urine Color Yellow Urine Appearance Clear Urine pH 5.5 (4.5-8.0) Ur Specific [place] 1.015 (1.000-1.035) Urine Protein Negative (Negative) Urine Glucose (UA) Negative (Negative) g/dL Urine Ketones Negative (NEGATIVE) Urine Occult Blood Negative (Negative) Urine Nitrate Positive H (Negative) Urine Bilirubin Negative (NEGATIVE) Urine Urobilinogen 0.2 (0.2) E.U./dL Ur Leukocyte Esterase 1+ H (NEGATIVE) Urine RBC 0-1/hpf D (0-5/HPF) Urine WBC 10-30/hpf H (0-5/HPF) Ur Squamous Epith Cells 0-1 /hpf (0-5/HPF) Urine Bacteria Many (>30) H (None) Ur Culture Indicated? Specimen cultured Vol Urine Centrifuged 10ml (spun) Point of Care Testing Glucose POC 277 MDM Narrative Medical decision making narrative: Patient returns today with Dilaudid for worsening rash on the eyes mouth and vaginal area for the past 3 weeks. Patient was prescribed medications last visit here. She was not on any new medications prior to ER visit. However review of ER visit here September 25 patient was on antibiotics 2 weeks prior to arrival. Vaginal exam was done last visit here. Patient was discharged on ketoconazole shampoo clotrimazole cream and allergy medication After history and exam, CBC CMP ESR CRP blood culture lactic acid procalcitonin MDM Medical records reviewed: September 25 2024 ER visit here, August 31 2024 ER visit here, was started on Keflex for UTI. Differential considered: Includes but not limited to Thapa-Trey syndrome. TENS, antibiotic allergy Lab Test results independently reviewed as above. Pertinent findings: Consultations: 5:40 p.m.. Spoke with [facility], spoke with Dr. Rowena Segundo, she has reviewed images we e-mail to them. Pictures she has reviewed, she does not feel this is Thapa-Trey syndrome, patient does not need be transferred. Would look for other sources such as contact dermatitis drug reaction. Pending on labs, either give steroids IV or antibiotics for cellulitis. Labs are pending. Recommend observation overnight Re-evaluations: Discussion: Diagnosis: 6:[address] Pierson: Sign out to Dr. Moreno, labs are pending, needs re- evaluation, Dermatology recommends admission for observation either antibiotics or steroids pending results of labs. Dr. Moreno: Patient evaluated by me no new complaints at this time, patient's lab work without any signs of leukocytosis, no indication for IV antibiotics at this time will provide dose of IV steroids at this time given recommendation by Dr. Rowena Segundo, and admit patient for observation overnight for improvement. Call placed out to hospitalist for admission. The patient's management plan was discussed Dr. Giron, who agrees to admit the patient to their service and assumes care of this patient at this time. Full admission orders will be placed by the primary team. Discharge Plan Departure Patient Disposition: Admitted as Observation Clinical Impression: Rash Admit Date/Time: 10/01/24 20:44 Admit Provider: Dusty Tidwell
[2024-10-01 18:42] LABS: Add Manual Diff / Slide Review NO; Basophils Absolute Auto 0 /uL (0-100); Basophils Percent Auto 0.4 % (0-2); Eosinophils Absolute Auto 200 /uL (0-450); Eosinophils Percent Auto 4.3 % (2-4); Hemoglobin 10.2 g/dL (12.0-16.0); Lymphocytes Absolute Auto 1500 /uL (1100-4500); Lymphocytes Percent Auto 26.4 % (25-40); Mean Corpuscular HGB Conc 33.9 % (30-36); Mean Corpuscular Hemoglobin 35.8 PG (26-34); Mean Corpuscular Volume 105.5 fL (80-100); Monocytes Absolute Auto 200 /uL (0-900); Monocytes Percent Auto 3.8 % (3-14); Neutrophils Absolute Auto 3600 /uL (1500-7000); Neutrophils Percent Auto 65.1 % (50-75); Platelet Count 238 X10^3/uL (150-400); Red Blood Cell Count 2.84 X10^6/uL (4.0-5.2); Red Cell Distribution Width 14.4 % (11.6-14.8); White Blood Cell Count 5.5 X10^3/uL (4.5-11.0)
[2024-10-01 18:52] LABS: Alanine Aminotransferase 17 IU/L (<35); Albumin 3.2 g/dL (3.5-5.0); Albumin Globulin Ratio 0.9 (1.0-2.8); Alkaline Phosphatase 85 U/L (38-126); Aspartate Aminotransferase 24 IU/L (14-36); BUN Creatinine Ratio 25.9 (6-22); Bilirubin Total 0.3 mg/dL (0.2-1.3); Blood Urea Nitrogen 22 mg/dL (7-17); Calcium 8.2 mg/dL (8.4-10.2); Carbon Dioxide 24 mmol/L (22-32); Chloride 101 mmol/L (98-107); Estimated Glomerular Filt Rate > 60 mL/min (>60); Globulin 3.5 g/dL (1.7-4.1); Glucose 204 mg/dL (70-99); HEMOLYSIS < 15 (0-50); Potassium 4.7 mmol/L (3.4-5.1); Sodium 132 mmol/L (137-145); Total Protein 6.7 g/dL (6.3-8.2)
[2024-10-01 18:53] LABS: Lactate (Lactic Acid) 1.9 mmol/L (0.7-2.1)
[2024-10-01 18:56] LABS: C-Reactive Protein Quant 5.1 mg/dL (<1.0)
[2024-10-01 19:08] LABS: Erythrocyte Sedimentation Rate 4 MM/HR (0-20)
[2024-10-01 19:09] LABS: Procalcitonin 0.096 ng/mL (<0.5)
--- NOTE | 2024-10-01 19:21 | PC.NURSE ---
Extensive rash around groin extending down thighs. Rash noted on hands partially and under eyes. Pt reports burning and scratching. Pt daughter reports she was seen here recently and given antifungal medications. Pt daughter reports the rash has gotten worse. No known fevers. Pictures obtained.
[2024-10-01 19:28] LABS: Appearance Urine UA CLEAR; Bilirubin Urine UA NEGATIVE (NEGATIVE); Color Urine UA YELLOW; Glucose Urine UA NEGATIVE (Negative); Ketones Urine UA NEGATIVE (NEGATIVE); Leukocyte Esterase Urine UA 1+ (NEGATIVE); Nitrite Urine UA POSITIVE (Negative); Occult Blood Urine UA NEGATIVE (Negative); Protein Urine UA NEGATIVE (Negative); Specific Gravity Urine UA 1.015 (1.000-1.035); Urobilinogen Urine UA 0.2 E.U./dL (0.2)
[2024-10-01 19:30] LABS: pH Urine UA 5.5 (4.5-8.0)
[2024-10-01 19:34] LABS: Bacteria Urine Many (>30); Culture Indicated Urine Specimen Cultured; RBC Urine 0-1/HPF (0-5/HPF); Squamous Epithelial Cell Urine 0-1 /HPF (0-5/HPF); Urine Volume 10mL (spun); WBC Urine 10-30/HPF (0-5/HPF)
--- NOTE | 2024-10-01 19:59 | PC.NURSE ---
Nurse Wound Photos from ER encounter 10/01/24: Lower Face/Mouth: Bilateral Hands: R Posterior Elbow: Abdomen: Lower Abdomen: Bilateral Anterior Thighs: R Anterior Thigh: R Lateral Thigh: L Lateral Thigh: Buttocks:
[2024-10-01] MEDS: methylPREDNISolone 125 MG/2 ML VIAL IV (20:21)
[2024-10-01] MEDS: ACETAMINOPHEN 325 MG TABLET 650 MG PO (20:58)
--- NOTE | 2024-10-01 21:30 | P.HP_ITS ---
History of Present Illness History of Present Illness Date Patient Seen: 10/01/24 Chief complaint: spreading rash getting worse Narrative: 88 y/o resident of [facility] with PMH of dementia, DM, CAD, GERD, osteoporosis, HLD, and recent history of rash starting 3 weeks ago and getting worse. Seen in the ED a month ago and prescribed Fluconazole and Keflex for perineal and vaginal rash and UTI. Rash appeared shortly after initiated antibiotics and extended to thighs and face despite prescribed steroid cream. Consultation with dermatology done from the ED with recommendation to treat as dermatitis or drug rash and observe overnight. Without evidence of cellulitis or leukocytosis. Mild hyponatremia, macrocytic anemia, elevated CRP. Treated with IV dose of steroid. [facility] Medical History Diabetes History of diabetes mellitus, type II Microcytic anemia Hyperlipidemia Hypertension Hypothyroidism GERD (gastroesophageal reflux disease) Osteoporosis Dementia Surgical History History of hysterectomy Family History Father No problems noted. Mother No problems noted. Social History household members: none Smoking Status: Never smoker alcohol intake: never Meds Home Medications and Allergies Home Medications Medication Instructions Recorded Confirmed Type fluoxetine 20 mg capsule 20 mg PO QDAY ##0 01/26/17 10/10/22 History gabapentin 300 mg capsule 300 mg PO BID ##0 01/26/17 10/10/22 History (Neurontin) insulin aspar prot-insulin aspart See Rx Instructions .Route 01/26/17 10/10/22 History 100 unit/mL (70-30) subcutaneous .COMPLEX ##0 pen (Novolog Mix 70-30FlexPen U-100) metformin 1,000 mg tablet,extended 1,000 mg PO BID ##0 01/26/17 10/09/22 History release 24hr (osmotic) spironolactone 25 mg tablet 25 mg QDAY ##0 01/26/17 10/10/22 History insulin degludec 100 unit/mL (3 22 unit SUBCUT DAILY 08/02/21 10/10/22 History mL) subcutaneous pen (Tresiba FlexTouch U-100 insulin) ketoconazole 2 % topical cream 1 applic topical DAILY PRN Rash 08/02/21 10/10/22 History loratadine 10 mg tablet (Allergy 10 mg PO DAILY 08/02/21 10/10/22 History Relief (loratadine)) losartan 25 mg tablet 50 mg PO DAILY #0 tabs 08/02/21 10/09/22 History rosuvastatin 10 mg tablet 10 mg PO DAILY 08/02/21 10/10/22 History triamcinolone acetonide 0.1 % 1 applic topical DAILY PRN Rash 08/02/21 10/10/22 History topical cream aluminum hydrox-magnesium carb 254 5 ml PO QID PRN dyspepsia #355 mL 10/15/22 Rx mg-237.5 mg/5 mL oral suspension fluconazole 150 mg tablet 150 mg PO Q3D 2 doses #2 tabs 11/07/22 Rx fluconazole 150 mg tablet 150 mg PO Q3D 2 doses #2 tabs 02/12/24 Rx cephalexin 500 mg capsule 500 mg PO TID #15 caps 08/31/24 Rx loperamide 2 mg capsule (Imodium 2 mg PO Q6H PRN loose stool #10 08/31/24 Rx A-D) caps cetirizine 10 mg tablet 10 mg PO DAILY 1 month #30 tabs 09/25/24 Rx clotrimazole 1 % topical cream 1 applic topical BID 4 weeks #45 09/25/24 Rx grams fluticasone propionate 50 1 spray intranasal DAILY 1 month 09/25/24 Rx mcg/actuation nasal #16 grams spray,suspension (Flonase Allergy Relief) ketoconazole 1 % shampoo 1 applic topical 2XW #200 mL 09/25/24 Rx polyethylene glycol 3350 17 gram 17 g PO DAILY 1 month #30 ea 09/25/24 Rx oral powder packet (Miralax) Allergies Allergy/AdvReac Type Severity Reaction Status Date / Time ALONDRA Inhibitors Allergy Verified 10/01/24 15:14 ciprofloxacin Allergy Verified 10/01/24 15:14 Review of Systems Review of Systems Narrative: Unobtainable due to dementia, partially follows simple commands, non-verbal at admission Exam Vital Signs (past 8 hours): - 10/01/24 15:10 10/01/24 19:19 10/01/24 19:30 Temperature 98.5 F Pulse Rate 78 66 64 Respiratory Rate 16 20 22 Blood Pressure 152/65 H Pulse Oximetry 99 100 99 Oxygen Delivery Method Room Air 10/01/24 19:31 10/01/24 19:31 10/01/24 20:00 Temperature Pulse Rate 64 62 Respiratory Rate 19 15 Blood Pressure 163/70 H Pulse Oximetry 97 100 Oxygen Delivery Method 10/01/24 20:01 10/01/24 20:01 Temperature Pulse Rate 64 Respiratory Rate 20 Blood Pressure 139/63 Pulse Oximetry 99 Oxygen Delivery Method Room Air Oxygen Delivery Method Room Air Narrative Exam Narrative: General - in no distress Skin - facial, perineal, b/l [id number] rash - erythematous, somewhat macular, scratch childress on lower legs Neuro - cognitive deficits, w/o behavioral issues CVS - RRR RS - normal respiratory effort Objective Labs 10/01/24 18:05 10/01/24 18:05 Labs: Laboratory Results - last 24 hr 10/01/24 10/01/24 10/01/24 18:05 18:20 19:05 WBC 5.5 RBC 2.84 L Hgb 10.2 L Hct 30.0 L MCV 105.5 H MCH 35.8 H MCHC 33.9 RDW 14.4 Plt Count 238 Neut % (Auto) 65.1 Lymph % (Auto) 26.4 [place] % (Auto) 3.8 Eos % (Auto) 4.3 H Baso % (Auto) 0.4 Neut # (Auto) 3600 Lymph # (Auto) 1500 [place] # (Auto) 200 Eos # (Auto) 200 Baso # (Auto) 0 ESR 4 Sodium 132 L Potassium 4.7 Chloride 101 Carbon Dioxide 24 BUN 22 H Creatinine 0.85 Estimated GFR > 60 BUN/Creatinine Ratio 25.9 H Glucose 204 H Lactate 1.9 Calcium 8.2 L Total Bilirubin 0.3 AST 24 ALT 17 Alkaline Phosphatase 85 C-Reactive Protein 5.1 H Total Protein 6.7 Albumin 3.2 L Globulin 3.5 Albumin/Globulin Ratio 0.9 L Procalcitonin 0.096 Urine Color Yellow Urine Appearance Clear Urine pH 5.5 Ur Specific [place] 1.015 Urine Protein Negative Urine Glucose (UA) Negative Urine Ketones Negative Urine Occult Blood Negative Urine Nitrate Positive H Urine Bilirubin Negative Urine Urobilinogen 0.2 Ur Leukocyte Esterase 1+ H Urine RBC 0-1/hpf D Urine WBC 10-30/hpf H Ur Squamous Epith Cells 0-1 /hpf Urine Bacteria Many (>30) H Ur Culture Indicated? Specimen cultured Vol Urine Centrifuged 10ml (spun) Assessment & Plan Assessment and plan (1) Rash: Status: Acute (2) Microcytic anemia: Status: Acute (3) GERD (gastroesophageal reflux disease): Status: Acute (4) Osteoporosis: Qualifiers: Osteoporosis type: age-related Presence of current pathological fracture: unspecified Qualified Code(s): M81.0 - Age-related osteoporosis without current pathological fracture Status: Acute (5) Dementia: Qualifiers: Dementia behavioral or psychological symptom: without behavioral, psychotic, or mood disturbance or anxiety Dementia severity: mild Dementia type: unspecified type Qualified Code(s): F03.A0 - Unspecified dementia, mild, without behavioral disturbance, psychotic disturbance, mood disturbance, and anxiety Status: Acute (6) Chronic hyponatremia: Status: Acute (7) Hypertension: Qualifiers: Hypertension type: primary hypertension Qualified Code(s): I10 - Essential (primary) hypertension Status: Acute (8) Diabetes: Qualifiers: Diabetes mellitus complication status: without complication 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: 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 shelter use Diabetes mellitus type: type 2 Qualified Code(s): E11.9 - Type 2 diabetes mellitus without complications; Z79.4 - care home (current) use of insulin Status: Acute Assessment & Plan narrative: Rash - appeared after the use of Fluconazole and Keflex - likely drug rash vs dermatitis - had 125 mg of Solumedrol in the ED - placed in observation Dementia - supportive care IDDM, type 2 - Long acting insulin, sliding scale - metformin - CCD HTN - Losartan Hyponatremia - chronic, stable Anemia - macrocytic, chronic, stable DVT prophylaxis - Lovenox Patient's family consented to a real time, audio-video telemedicine visit with electronic stethoscope and RN assisting during the exam. Patient located at [place], [place]. Provider located in [place]. Time-Based Coding :: [TOTAL MINUTES] spent with patient and on the chart (including review of chart, obtaining history, exam, reviewing outside data, placing orders, documenting exam and treatment plan, and counseling patient) on [DATE].
[2024-10-01] MEDS: PANTOPRAZOLE DR 20 MG TABLET PO (22:34)
[2024-10-02 04:00] VITALS: BP 148/62; PULSE 83; RESP 16; TEMP 35.8; O2SAT 94
[2024-10-02 04:57] LABS: Add Manual Diff / Slide Review NO; Basophils Absolute Auto 0 /uL (0-100); Eosinophils Absolute Auto 0 /uL (0-450); Eosinophils Percent Auto 0.1 % (2-4); Hematocrit 29.8 % (36-46); Hemoglobin 10.4 g/dL (12.0-16.0); Lymphocytes Absolute Auto 500 /uL (1100-4500); Lymphocytes Percent Auto 8.5 % (25-40); Mean Corpuscular HGB Conc 34.8 % (30-36); Mean Corpuscular Hemoglobin 36.3 PG (26-34); Mean Corpuscular Volume 104.2 fL (80-100); Monocytes Absolute Auto 0 /uL (0-900); Monocytes Percent Auto 0.8 % (3-14); Neutrophils Absolute Auto 5300 /uL (1500-7000); Neutrophils Percent Auto 90.6 % (50-75); Platelet Count 302 X10^3/uL (150-400); Red Blood Cell Count 2.86 X10^6/uL (4.0-5.2); Red Cell Distribution Width 14.2 % (11.6-14.8); White Blood Cell Count 5.8 X10^3/uL (4.5-11.0)
[2024-10-02 05:18] LABS: BUN Creatinine Ratio 28.8 (6-22); Blood Urea Nitrogen 21 mg/dL (7-17); Calcium 8.5 mg/dL (8.4-10.2); Carbon Dioxide 19 mmol/L (22-32); Chloride 101 mmol/L (98-107); Estimated Glomerular Filt Rate > 60 mL/min (>60); Glucose 269 mg/dL (70-99); HEMOLYSIS < 15 (0-50); Potassium 5.1 mmol/L (3.4-5.1); Sodium 130 mmol/L (137-145)
--- NOTE | 2024-10-02 06:32 | PC.ADMIT ---
[facility] Admission Note: The patient,Awilda Lincoln,88 y/o, was given written information regarding hospital policies, unit procedures and contact persons. Patient's smoking status: Never smoker. Vital Signs - 8 hr 10/01/24 22:45 10/02/24 04:00 Temperature 96.4 F L Pulse Rate 83 Respiratory Rate 16 Blood Pressure 148/62 H Pulse Oximetry 94 Oxygen Delivery Method Room Air Oxygen Flow Rate 0 Patient admitted to room 223 at 2230. Confused, has moderate to severe dementia per daughter who answered admit questions. Patient able to follow simple commands, bed alarm on, patient is impulsive when has to use BR. Rash to eye area, hands, elbows, lower torso extending down through perineum and inner thighs. Photos taken in ED.
[2024-10-02 08:00] VITALS: BP 132/69; PULSE 77; RESP 16; TEMP 36.6; O2SAT 98
[2024-10-02] MEDS: INSULIN LISPRO 100 UNIT/ML 3ML VIAL SUBCUT ×3 (08:00→15:45)
[2024-10-02] MEDS: SODIUM CHLORIDE 0.9% FLUSH 10 ML IV (08:00)
--- NOTE | 2024-10-02 09:35 | PM.DS.1 ---
History of Present Illness History of Present Illness Date Patient Seen: 10/02/24 Time Patient Seen: 09:35 Chief complaint: spreading rash getting worse Narrative: Per admitting provider, 88 y/o resident of [facility] with PMH of dementia, DM, CAD, GERD, osteoporosis, HLD, and recent history of rash starting 3 weeks ago and getting worse. Seen in the ED a month ago and prescribed Fluconazole and Keflex for perineal and vaginal rash and UTI. Rash appeared shortly after initiated antibiotics and extended to thighs and face despite prescribed steroid cream. Consultation with dermatology done from the ED with recommendation to treat as dermatitis or drug rash and observe overnight. Without evidence of cellulitis or leukocytosis. Mild hyponatremia, macrocytic anemia, elevated CRP. Treated with IV dose of steroid. Discharge Providers Provider Date of admission: 10/01/24 20:44 Discharge Date: 10/02/24 Primary care physician: David Hassan MD Discharge provider: Everardo Malik DO Summary Hospital Course Discharge Diagnosis: 1. Drug rash, presumed, POA 2. Dementia 3. Asymptomatic bacteuria, POA 4. DM2 5. HTN 6. HLD Hospital Course: This is an 88 year old female with PMH of dementia, DM2, HTN, HLD who was sent to the ER for 3 weeks of rash. ER provider consulted with dermatology who recommended treatment with steroids for possible drug rash, but this was not consistent with SJS or other severe life threatening rash. Her labs were unremarkable. She was observed overnight and had no progression of rash, or development of abnormal labs or oral lesions. Recommend outpatient dermatology evaluation after discharge. For drug rash she will be discharged with 4 additional days of systemic steroids. Recommend continuing antihistamine on discharge, and can continue to treat with topical corticosteroid after completion of systemic symptoms. Time Spent with Patient Time spent: Greater than 30 minutes Exam Vital Signs (past 8 hours): - 10/02/24 04:00 10/02/24 08:00 Temperature 96.4 F L 97.9 F Pulse Rate 83 77 Respiratory Rate 16 16 Blood Pressure 148/62 H 132/69 Pulse Oximetry 94 98 Oxygen Flow Rate 0 0 Oxygen Delivery Method Room Air Oxygen Flow Rate 0 Narrative Exam Narrative: General - in no distress Skin - facial, perineal, b/l [id number] rash - erythematous, somewhat macular, scratch childress on lower legs Neuro - cognitive deficits, w/o behavioral issues CVS - RRR RS - normal respiratory effort Objective Labs 10/02/24 04:10 10/02/24 04:10 Labs: Laboratory Results - last 24 hr 10/01/24 10/01/24 10/01/24 18:05 18:20 19:05 WBC 5.5 RBC 2.84 L Hgb 10.2 L Hct 30.0 L MCV 105.5 H MCH 35.8 H MCHC 33.9 RDW 14.4 Plt Count 238 Neut % (Auto) 65.1 Lymph % (Auto) 26.4 [place] % (Auto) 3.8 Eos % (Auto) 4.3 H Baso % (Auto) 0.4 Neut # (Auto) 3600 Lymph # (Auto) 1500 [place] # (Auto) 200 Eos # (Auto) 200 Baso # (Auto) 0 ESR 4 Sodium 132 L Potassium 4.7 Chloride 101 Carbon Dioxide 24 BUN 22 H Creatinine 0.85 Estimated GFR > 60 BUN/Creatinine Ratio 25.9 H Glucose 204 H Lactate 1.9 Calcium 8.2 L Total Bilirubin 0.3 AST 24 ALT 17 Alkaline Phosphatase 85 C-Reactive Protein 5.1 H Total Protein 6.7 Albumin 3.2 L Globulin 3.5 Albumin/Globulin Ratio 0.9 L Procalcitonin 0.096 Urine Color Yellow Urine Appearance Clear Urine pH 5.5 Ur Specific [place] 1.015 Urine Protein Negative Urine Glucose (UA) Negative Urine Ketones Negative Urine Occult Blood Negative Urine Nitrate Positive H Urine Bilirubin Negative Urine Urobilinogen 0.2 Ur Leukocyte Esterase 1+ H Urine RBC 0-1/hpf D Urine WBC 10-30/hpf H Ur Squamous Epith Cells 0-1 /hpf Urine Bacteria Many (>30) H Ur Culture Indicated? Specimen cultured Vol Urine Centrifuged 10ml (spun) 10/02/24 04:10 WBC 5.8 RBC 2.86 L Hgb 10.4 L Hct 29.8 L MCV 104.2 H MCH 36.3 H MCHC 34.8 RDW 14.2 Plt Count 302 Neut % (Auto) 90.6 H D Lymph % (Auto) 8.5 L [place] % (Auto) 0.8 L Eos % (Auto) 0.1 L Baso % (Auto) 0.0 Neut # (Auto) 5300 Lymph # (Auto) 500 L [place] # (Auto) 0 Eos # (Auto) 0 Baso # (Auto) 0 ESR Sodium 130 L Potassium 5.1 Chloride 101 Carbon Dioxide 19 L BUN 21 H Creatinine 0.73 Estimated GFR > 60 BUN/Creatinine Ratio 28.8 H Glucose 269 H Lactate Calcium 8.5 Total Bilirubin AST ALT Alkaline Phosphatase C-Reactive Protein Total Protein Albumin Globulin Albumin/Globulin Ratio Procalcitonin Urine Color Urine Appearance Urine pH Ur Specific [place] Urine Protein Urine Glucose (UA) Urine Ketones Urine Occult Blood Urine Nitrate Urine Bilirubin Urine Urobilinogen Ur Leukocyte Esterase Urine RBC Urine WBC Ur Squamous Epith Cells Urine Bacteria Ur Culture Indicated? Vol Urine Centrifuged [facility] Medical History Diabetes History of diabetes mellitus, type II Microcytic anemia Hyperlipidemia Hypertension Hypothyroidism GERD (gastroesophageal reflux disease) Osteoporosis Dementia Surgical History History of hysterectomy Family History Father No problems noted. Mother No problems noted. Social History household members: none Smoking Status: Never smoker alcohol intake: never Discharge Plan Discharge Plan Patient Disposition: Assisted Living Other facility: [facility] Provider Discharge Comment: 88F admitted after ER consultation recommended observation for a rash. There was no progression of rash, continue treatment with oral steroids for 4 additional days after discharge. Continue previous care with antihistamines and topical cream, though vasoline is not likely any benefit at this time. Recommend urgent PCP follow up by the end of the week for monitoring and referral for dermatology as soon as possible. Discharge orders & Medications Discharge Orders: Discharge (Order); Ordered 10/02/24 Ordered By: Everardo Malik Prescriptions: New prednisone 20 mg tablet 60 mg PO DAILY 4 Days Qty: 12 0RF Continued loratadine [Allergy Relief (loratadine)] 10 mg tablet 10 mg PO DAILY Tresiba FlexTouch U-100 100 unit/mL (3 mL) insulin pen 22 unit SUBCUT DAILY rosuvastatin 10 mg tablet 10 mg PO DAILY ketoconazole 2 % cream 1 applic topical DAILY PRN (Reason: Rash) triamcinolone acetonide 0.1 % cream 1 applic topical DAILY PRN (Reason: Rash) fluoxetine 20 MG capsule 20 mg PO QDAY Qty: 0 gabapentin [Neurontin] 300 MG capsule 300 mg PO BID Qty: 0 spironolactone 25 MG tablet 25 mg QDAY Qty: 0 insulin asp prt-insulin aspart [Novolog Mix 70-30FlexPen U-100] 100 UNIT/1 ML insulin pen See Rx Instructions .ROUTE .COMPLEX Qty: 0 Rx Instructions: Inject subcutaneously per sliding scale 2 times daily 150-199=2 units, 200-250=3 units, 250-299=4 units, 300 or higher= 5 units metformin 1,000 MG tablet extended release 24hr 1,000 mg PO BID Qty: 0 losartan 25 mg tablet 50 mg PO DAILY Qty: 0 aluminum hydrox-magnesium carb 254-237.5 mg/5 mL suspension 5 ml PO QID PRN (Reason: dyspepsia) Qty: 355 0RF Rx Instructions: Generic Maalox, 5 mL QID prn dyspepsia cetirizine 10 mg tablet 10 mg PO DAILY 30 Days Qty: 30 0RF fluticasone propionate [Flonase Allergy Relief] 50 mcg/actuation spray,suspension 1 spray intranasal DAILY 30 Days Qty: 16 0RF Rx Instructions: administer into each nostril clotrimazole 1 % cream 1 applic topical BID 28 Days Qty: 45 0RF Rx Instructions: apply to groin, perineal folds, gluteal cleft polyethylene glycol 3350 [Miralax] 17 gram powder in packet 17 g PO DAILY 30 Days Qty: 30 0RF ketoconazole 1 % shampoo 1 applic topical 2XW Qty: 200 0RF Rx Instructions: use as wash for face, hair, groin (avoid eyes) loperamide [Imodium A-D] 2 mg capsule 2 mg PO Q6H PRN (Reason: loose stool) Qty: 10 0RF Discontinued fluconazole 150 mg tablet 150 mg PO Q3D Qty: 2 0RF fluconazole 150 mg tablet 150 mg PO Q3D Qty: 2 0RF Rx Instructions: may repeat second dose 72 hrs after first dose if symptoms persist cephalexin 500 mg capsule 500 mg PO TID Qty: 15 0RF Follow up/Referrals: David Hassan MD [Primary Care Provider] - 3-5 Days (Drug rash on steroids.) Discharge Health Status Multidrug resistant organism: No MDRO Precautions: [place] Diet/Activity/Treatments Diet: Diet as Tolerated and Carb-consistent/Diabetic Liquid consistency: Normal/Thin Food texture: Regular Visit Report/Discharge Packet Instructions: How to Prevent Falls, DI for Rash Stand Alone Forms: Patient Portal/API, Stroke Signs & Symptoms Discharge Data Primary Care Provider: David Hassan Attending Provider: Dusty Tidwell Admit Date/Time: 10/01/24 20:44 Quality VTE Deep Vein Thrombosis/Pulmonary Embolism Present on Admission: No
[2024-10-02 10:00] VITALS: BP 129/53; PULSE 80
[2024-10-02] MEDS: ENOXAPARIN 40 MG/0.4 ML SYRINGE SUBCUT (10:01)
[2024-10-02] MEDS: METFORMIN XR 500 MG TABLET 1000 MG PO (10:03)
[2024-10-02] MEDS: ACETAMINOPHEN 325 MG TABLET 650 MG PO (10:03)
[2024-10-02] MEDS: INSULIN GLARGINE 100 UNIT/ML 3ML PEN 22 UNIT SUBCUT (10:04)
[2024-10-02 11:58] VITALS: BP 135/58; PULSE 81; RESP 18; TEMP 36.8; O2SAT 97
--- NOTE | 2024-10-02 13:13 | CM.DANOTE ---
Initial DCP Assessment Visit Note Reviewed EMR and team rounds for pt's medical status and updates. Called pt's dtr to discuss pt's d/c, she will be transporting pt back to [facility] this afternoon, pt has been medically cleared for d/c. PEEWEE did provide dtr with a resource for OP Dermatology f/u, per her request. Payor: Medicare PCP: Dr. Rod Hassan Pt is a 88 year-old F with a hx of moderate to severe dementia, resides at [facility]. Dtr, Kristen, is local dtr and primary contact/DPOA for decision making. Pt had an ED visit on 09/25/24 for the same rash concerns, had already been on two-different antibiotics prior to the ED visit, was found to have a worsening dermatitis rash around her mouth, eyes, and vaginal area. She was discharged back to the [facility] with Ketoconazole shampoo, clotrimazole cream, and allergy medication. Dermatology was consulted, and they recommended further OP Dermatological evaluation, and that there was no need to transfer her for a higher level of care. Dtr is expressing frustration about the lack of resolution, and actually worsening rash with the different topical creams that she has been using. Pt is also incontinent of bowel/bladder, which has also excerbated the issue in the groin/stomach area. Plan is for Dr. Malik to have a discussion with dtr prior to d/c for questions that she has in regard to what the next tx step is for d/c until they can get in to see Dermatology. No further CM d/c assistance identified at this time. Discharge Planning/Care Management CM Discharge Assessment Start: 10/01/24 21:32 Freq: Status: Active Protocol: Document 10/02/24 13:11 DPL (Rec: 10/02/24 13:13 DPL [id number]) Discharge Planning Assessment Assigned Formation Testing Operator PEEWEE Cheng Advance Directives? Yes Advance Directives on File Yes History Provided By Family Member,Medical Record Has Patient been admitted in last 30 No days? Prior Living Arrangements Assisted Living Household Members none Type of transporation used prior to Relies on Others admit Facility Name Admitted From: Other Willing to Return to Facility? Yes: [facility] with ADL's No: severe dementia Is patient alert and oriented? No Needs Assistance With Bathing,Grooming,Meal Prep, Toileting,Managing Medications ,Home Chores / Shopping Community Services used prior to Wound Care admission: DME Already Rented / Owned Bath Bench,Elevated Toilet Seat,FWW / Walker Comment [employer] provided a resource for OP Dermatology f/u. Barriers to Discharge No Comment DC plan back to [facility] Discharge Plan Assisted Living Facility Transportation Arrangement Patients Daughter Kristen Britton will provide transportation for her mother at [place] back to [facility] Referrals Initiated None needed Whiteboard Updated in Patient Room with Yes name and ext. # of Formation Testing Operator Review Status In Process Please Provide Date Initial DC 10/02/24 Assessment Was Performed
--- NOTE | 2024-10-02 16:39 | PC.NURSE ---
Day shift: Discharge orders written by MD Malik. DIscharge instructions given to patient and patient's daughter. Patient removed PIV independently this AM. All belongings with patient. Given insulin for dinner prior to discharge per daughter's request - she plans to take her directly back to assisted living facility where it is dinner time. JUNG Ramirez escorted patient to exit via wheelchair.
== END 2024-10-02 15:50 ==
LOC: ED 19:54 → AC 20:51
PROVIDERS: Emergency Medicine; Admitting Provider Internal Medicine; Emergency Provider Student in an Organized Health Care Education/Training Program; PCP Family Medicine; Referring Provider Student in an Organized Health Care Education/Training Program; Visit Provider Internal Medicine
DX: D50.9 Iron deficiency anemia, unspecified (principal); K21.9 Gastro-esophageal reflux disease without esophagitis; M81.0 Age-related osteoporosis without current pathological fracture; F03.A0 Unspecified dementia, mild, without behavioral disturbance, psychotic disturbance, mood disturbance, and anxiety; E87.1 Hypo-osmolality and hyponatremia; I10 Essential (primary) hypertension; E11.9 Type 2 diabetes mellitus without complications; E78.5 Hyperlipidemia, unspecified; Z79.4 Long term (current) use of insulin; R21 Rash and other nonspecific skin eruption; Z79.84 Long term (current) use of oral hypoglycemic drugs; R82.71 Bacteriuria
CPT/HCPCS: 36415; 80048; 80053; 81001; 82962; 83605; 84145; 85025; 85651; 86140; 87040; 87077; 87086; 87186; 96372; 96374; 99284; G0378; J1650; J1815; J2919